=== PATIENT | male | born 1955 | race Caucasian/White ===

== ENCOUNTER 2017-12-12 05:39 | Observation (INO) | payer MEDICARE, SELFPAY ==
[2017-12-12] VITALS (16 sets, daily range): BP systolic 129–204; BP diastolic 70–91; PULSE 52–62; RESP 14–18; TEMP 36.1–36.9; O2SAT 94–98; BMI 34.1; BMI 33.4
--- NOTE | 2017-12-12 05:50 | RAD_ITS ---
STUDY: X-RAY CHEST REASON FOR EXAM: Male, 61 years old. Chest pain TECHNIQUE: Single AP portable view of the chest. COMPARISON: 08/28/2015. 07/27/2015. FINDINGS: There are superimposed monitor leads. Stable elevation right hemidiaphragm. The lungs are clear and expanded. There is no demonstrated pleural abnormality. Normal size heart. Normal mediastinum and junior. Normal visualized pulmonary arteries. Normal visualized aortic arch and descending thoracic aorta. Normal visualized thoracic spine. Normal visualized ribs, clavicles, and shoulders. There is no demonstrated abnormality of the visualized soft tissue structures of the upper abdomen. RAD/Chest 1 View (Portable) IMPRESSION: No acute cardiopulmonary disease. No significant interval change. Electronically Signed: Lynnette Dunlap MD at 6:27 EDT , Service support ,
[2017-12-12] MEDS: Aspirin 81 MG TAB.CHEW 324 MG PO (05:58)
[2017-12-12 06:04] LABS: Absolute Lymphocyte Count 2.65 X10^3/ul (0.83-4.51); Basophil# 0.04 X10^3/uL; Basophil% 0.5 % (0-1); Eosinophil# 0.25 X10^3/uL; Eosinophils% 3.2 % (0-5); Hematocrit 41.8 % (40-54); Hemoglobin 14.6 g/dl (13.0-16.5); Lymphocyte # 2.65 X10^3/ul (4.0); Lymphocyte % 33.8 % (19-41); Mean Corp Hgb Conc 34.9 g/gl (32-36); Mean Corpuscular Hgb 33.1 pg (27.0-32.0); Mean Corpuscular Volume 94.8 fL (80-94); Mean Platelet Vol. 10.2 fl (6.2-12.0); Monocyte# 0.87 X10^3/uL; Monocyte% 11.1 % (0-10); Neutrophil # 4.02 X10^3/uL (2.7-7.7); Neutrophil % 51.1 % (47-70); POSITIVE COUNT NO; POSITIVE DIFFERENTIAL NO; POSITIVE MORPHOLOGY NO; Platelet Count 230 K/mm3 (150-450); RBC Distribution Width CV 13.1 % (11.6-14.6); RBC Distribution Width SD 45.5 fl (35.1-43.9); Red Blood Count 4.41 M/mm3 (4.6-6.2); White Blood Count 7.9 K/mm3 (4.4-11.0)
[2017-12-12 06:12] LABS: BUN 12 mg/dL (7-18); Creatinine, Serum 0.82 mg/dL (0.70-1.30); Glucose 120 mg/dL (74-106)
--- NOTE | 2017-12-12 06:12 | ED.VISSUMM ---
- ER Visit Summary Date of Service: 12/12/17 Chief Complaint: Chest pain History of Present Illness: The patient is a 61 M with chest pain for about 5 hours it is now almost gone. It was described as pressure, no radiation. No diaphoresis, no nausea or vomiting. He does have a significant history of hypertension hypercholesterolemia diabetes and smoking. No PE risk factors. Physical Examination: Not appear in acute distress. Moist mucous membranes, no obvious facial deformity No C-spine tenderness supple neck. Regular rate and rhythm without any obvious murmurs Clear lungs bilaterally speaking in full sentences without any obvious respiratory distress Abdomen soft and nontender no guarding or rebound Moves all extremities without any difficulty or pain. No edema Skin does not show any obvious rashes or lesions, no trauma. Alert oriented ?3 with no gross focal deficit Emergency Department Course and Treatment: Patient has nonspecific EKG changes, he has a heart score of 5, he will be admitted to the hospital for further cardiac evaluation. Admit to the hospital in stable condition Impression: Chest pain This note was generated with [employer] dictation software. It may contain incorrect words, spelling, and punctuation that were not noted in review of the chart prior to signing ED Disposition - Plan for ED Patient: Chief Complaint: Chest Pain Referrals: Marin Geiger [Primary Care Provider] -
[2017-12-12 06:13] LABS: Anion Gap 9 (5-15); BUN/Creat Ratio 14.7 RATIO (10-20); Calcium,Total 9.5 mg/dL (8.5-10.1); Chloride 104 mmol/L (98-107); EST Glomerular Filtration Rate 102 mL/min (>60); Est Glom Filt Rate - Afr Amer 123 mL/min (>60); Estimated Creatinine Clearance 97.68 ml/min; Potassium 4.4 mmol/L (3.5-5.1); Sodium Level 140 mmol/L (136-145)
--- NOTE | 2017-12-12 07:05 | NURSING ---
DR ARLETTE PLATA
--- NOTE | 2017-12-12 07:24 | PCM.HP.STD ---
Problem List (1) Chest pain Status: Acute History of Present Illness Date of Admission: 12/12/17 Chief Complaint: chest pain The patient is a 61 year old M who awoke with left-sided chest pain. Patient checked his blood pressure and was noted to be Systolic in the 200s and was concerned about being his heart and presented to the emergency room. Patient has never had chest pain like this before. Patient received some nitroglycerin in the emergency room which resolved his chest pain. His chest pain did not radiate nor did he have any other constitutional symptoms.[] Past Medical History Past Medical History (Chronic Problems): Chronic Problems (Last Updated 12/12/17 @ 07:28 by Jaspreet Snow DO) Atrial fibrillation (Chronic) Hypertension (Chronic) Type II diabetes mellitus (Chronic) Rheumatoid arthritis (Chronic) Atrial flutter (Chronic) Hyperlipidemia (Chronic) Medical History: Medical History (Last Updated 12/12/17 @ 07:28 by Jaspreet Snow DO) CVA (cerebral vascular accident) I63.9 DM2 (diabetes mellitus, type 2) E11.9 Hyperlipidemia E78.5 Paroxysmal A-fib I48.0 Rheumatoid arthritis M06.9 HTN (hypertension) I10 Allergies No Known Allergies Allergy (Verified 07/27/15 08:31) Home Medications: Ambulatory Orders Medication Instructions Recorded Glimepiride [Amaryl] 4 mg PO BID 07/27/15 Hydrocodone Bitart/Apap 5-325 1 tablet PO Q8H PRN PRN 07/27/15 [[place] 5/325] Metformin HCl [Glucophage] 500 mg PO BIDCM 07/27/15 Apixaban [Eliquis] 5 mg PO BID #60 tablet 07/28/15 Atorvastatin Calcium [Lipitor] 40 mg PO QHS #30 tablet 07/28/15 Metoprolol Tartrate [Lopressor 100 mg PO BID #60 tablet 07/28/15 (beta mingo)] Aspirin E.C. [Ecotrin] 81 mg PO DAILY@0800 tablet 08/30/15 Flecainide [Tambocor] 100 mg PO BID #60 tablet 08/30/15 Losartan Potassium [Cozaar] 100 mg PO DAILY 12/12/17 Surgical History: noncontributory Psychiatric History: No pertinent psych hx Smoking Status: Former smoker Alcohol: Occasional Drugs: None - *Family History Maternal History Items: No pertinent history Paternal History Items: Heart Disease Review of Systems Constitutional: Denies: Chills, Fever, Weight Change Eyes: Denies: Blurred vision, Double vision HEENT: Denies: Head Aches, Sinus Congestion, Sinus Drainage Cardiovascular: Reports: Chest Pain. Denies: Edema Respiratory: Denies: Cough, Shortness of breath at rest, Sputum production Gastrointestinal: Denies: Abdominal Pain, Nausea, Vomiting Genitourinary: Denies: Dysuria Musculoskeletal: Denies: Joint Pain, Joint Tenderness Skin: Denies: Rash, Wounds Neurological: Denies: Numbness, Tingling, Focal weakness Psychiatric: Denies: Anxiety, Depression Hematologic/ Lymphatic: Denies: Easy Bruising, Easy Bleeding, Hx of blood clot Comment: All review of systems are negative except as mentioned in the history of present illness and the other review of systems. VTE Information - Inpt Only VTE Present on Admission: No VTE Mechan Device Prophylaxis: None VTE Pharm Prophylaxis ordered?: Yes Patient Problems: Active and Suspected Problems (Last Updated 12/12/17 @ 07:28 by Jaspreet Snow DO) Chest pain (Acute) - Physical Exam General: Alert, Cooperative, No apparent distress HEENT: Atraumatic, Normocephalic Neck: No Nodes, Thyroid Normal Size and Texture Lungs: Clear to auscultation, Normal air movement, No rhonchi, No wheeze Cardiovascular: Regular rate, Regular Rhythm, Normal S1, Normal S2, No murmurs Abdomen: Bowel Sounds Present, Soft, Non Tender, Non-Distended, No Hepato-splenomegaly Extremities: No edema, No Calf Tenderness Skin: No rashes, No breakdown Musculoskeletal: No Tenderness to Palpation of Joints or Extremities, No Muscle Wasting Psych/Mental Status: Normal Affect, Appropriate Vital Signs Temp Pulse Resp BP Pulse Ox 36.9 C 56 L 16 129/75 H 96 12/12/17 05:40 12/12/17 07:07 12/12/17 07:07 12/12/17 07:07 12/12/17 07:07 Oxygen Flow Rate (L/min) 2 Oxygen Delivery Method Room Air Weight: 108 kg Body Mass Index (BMI) 34.1 Finger Stick Blood Glucose 278 Laboratory Tests Past 24 Hrs 12/12/17 12/12/17 05:44 05:44 WBC 7.9 RBC 4.41 L Hgb 14.6 Hct 41.8 MCV 94.8 H MCH 33.1 H MCHC 34.9 RDW 13.1 RDW Differential 45.5 H Plt Count 230 MPV 10.2 Immature Gran % (Auto) 0.300 Neut % (Auto) 51.1 Lymph % (Auto) 33.8 [place] % (Auto) 11.1 H Eos % (Auto) 3.2 Baso % (Auto) 0.5 Absolute Neuts (auto) 4.0 Absolute Lymphs (auto) 2.65 Total Counted Not Reportable Sodium 140 Potassium 4.4 Chloride 104 Carbon Dioxide 27.0 Anion Gap 9 BUN 12 Creatinine 0.82 Estim Creat Clear Calc 97.68 Est GFR (MDRD) Af Amer 123 Est GFR (MDRD) Non-Af 102 BUN/Creatinine Ratio 14.7 Glucose 120 H Calcium 9.5 Troponin I < 0.015 EKG reviewed and are normal sinus rhythm. Inferior Q waves unchanged from 2016. Assessment/Plan All Active Problems (Last Updated 12/12/17 @ 07:28 by Jaspreet Snow DO) Acute CVA (cerebrovascular accident) (Acute) Encounter for monitoring anti-arrhythmic therapy (Acute) Chest pain (Acute) CVA (cerebral vascular accident) (Resolved) 1. Chest pain Atypical Heart score of 5, AQUILINO score of 2 Plan is for a stress test Patient already on aspirin as well as Eliquis 2. Paroxysmal atrial fibrillation Continue with metoprolol and Eliquis 3. Diabetes mellitus type 2 Continue with metformin 4. DVT prophylaxis: Patient is anticoagulated Code Visit OBSV E&M: 62446 Initial observation care L2
--- NOTE | 2017-12-12 07:28 | HP.PCM_ITS ---
Problem List (1) Chest pain Status: Acute History of Present Illness Date of Admission: 12/12/17 Chief Complaint: chest pain The patient is a 61 year old M who awoke with left-sided chest pain. Patient checked his blood pressure and was noted to be Systolic in the 200s and was concerned about being his heart and presented to the emergency room. Patient has never had chest pain like this before. Patient received some nitroglycerin in the emergency room which resolved his chest pain. His chest pain did not radiate nor did he have any other constitutional symptoms.[] Past Medical History Past Medical History (Chronic Problems): Chronic Problems (Last Updated 12/12/17 @ 07:28 by Jaspreet Snow DO) Atrial fibrillation (Chronic) Hypertension (Chronic) Type II diabetes mellitus (Chronic) Rheumatoid arthritis (Chronic) Atrial flutter (Chronic) Hyperlipidemia (Chronic) Medical History: Medical History (Last Updated 12/12/17 @ 07:28 by Jaspreet Snow DO) CVA (cerebral vascular accident) I63.9 DM2 (diabetes mellitus, type 2) E11.9 Hyperlipidemia E78.5 Paroxysmal A-fib I48.0 Rheumatoid arthritis M06.9 HTN (hypertension) I10 Allergies No Known Allergies Allergy (Verified 07/27/15 08:31) Home Medications: Ambulatory Orders Medication Instructions Recorded Glimepiride [Amaryl] 4 mg PO BID 07/27/15 Hydrocodone Bitart/Apap 5-325 1 tablet PO Q8H PRN PRN 07/27/15 [[place] 5/325] Metformin HCl [Glucophage] 500 mg PO BIDCM 07/27/15 Apixaban [Eliquis] 5 mg PO BID #60 tablet 07/28/15 Atorvastatin Calcium [Lipitor] 40 mg PO QHS #30 tablet 07/28/15 Metoprolol Tartrate [Lopressor 100 mg PO BID #60 tablet 07/28/15 (beta mingo)] Aspirin E.C. [Ecotrin] 81 mg PO DAILY@0800 tablet 08/30/15 Flecainide [Tambocor] 100 mg PO BID #60 tablet 08/30/15 Losartan Potassium [Cozaar] 100 mg PO DAILY 12/12/17 Surgical History: noncontributory Psychiatric History: No pertinent psych hx Smoking Status: Former smoker Alcohol: Occasional Drugs: None - *Family History Maternal History Items: No pertinent history Paternal History Items: Heart Disease Review of Systems Constitutional: Denies: Chills, Fever, Weight Change Eyes: Denies: Blurred vision, Double vision HEENT: Denies: Head Aches, Sinus Congestion, Sinus Drainage Cardiovascular: Reports: Chest Pain. Denies: Edema Respiratory: Denies: Cough, Shortness of breath at rest, Sputum production Gastrointestinal: Denies: Abdominal Pain, Nausea, Vomiting Genitourinary: Denies: Dysuria Musculoskeletal: Denies: Joint Pain, Joint Tenderness Skin: Denies: Rash, Wounds Neurological: Denies: Numbness, Tingling, Focal weakness Psychiatric: Denies: Anxiety, Depression Hematologic/ Lymphatic: Denies: Easy Bruising, Easy Bleeding, Hx of blood clot Comment: All review of systems are negative except as mentioned in the history of present illness and the other review of systems. VTE Information - Inpt Only VTE Present on Admission: No VTE Mechan Device Prophylaxis: None VTE Pharm Prophylaxis ordered?: Yes Patient Problems: Active and Suspected Problems (Last Updated 12/12/17 @ 07:28 by Jaspreet Snow DO ) Chest pain (Acute) - Physical Exam General: Alert, Cooperative, No apparent distress HEENT: Atraumatic, Normocephalic Neck: No Nodes, Thyroid Normal Size and Texture Lungs: Clear to auscultation, Normal air movement, No rhonchi, No wheeze Cardiovascular: Regular rate, Regular Rhythm, Normal S1, Normal S2, No murmurs Abdomen: Bowel Sounds Present, Soft, Non Tender, Non-Distended, No Hepato- splenomegaly Extremities: No edema, No Calf Tenderness Skin: No rashes, No breakdown Musculoskeletal: No Tenderness to Palpation of Joints or Extremities, No Muscle Wasting Psych/Mental Status: Normal Affect, Appropriate Vital Signs Temp Pulse Resp BP Pulse Ox 36.9 C 56 L 16 129/75 H 96 12/12/17 05:40 12/12/17 07:07 12/12/17 07:07 12/12/17 07:07 12/12/17 07:07 Oxygen Flow Rate (L/min) 2 Oxygen Delivery Method Room Air Weight: 108 kg Body Mass Index (BMI) 34.1 Finger Stick Blood Glucose 278 Laboratory Tests Past 24 Hrs 12/12/17 12/12/17 05:44 05:44 WBC 7.9 RBC 4.41 L Hgb 14.6 Hct 41.8 MCV 94.8 H MCH 33.1 H MCHC 34.9 RDW 13.1 RDW Differential 45.5 H Plt Count 230 MPV 10.2 Immature Gran % (Auto) 0.300 Neut % (Auto) 51.1 Lymph % (Auto) 33.8 [place] % (Auto) 11.1 H Eos % (Auto) 3.2 Baso % (Auto) 0.5 Absolute Neuts (auto) 4.0 Absolute Lymphs (auto) 2.65 Total Counted Not Reportable Sodium 140 Potassium 4.4 Chloride 104 Carbon Dioxide 27.0 Anion Gap 9 BUN 12 Creatinine 0.82 Estim Creat Clear Calc 97.68 Est GFR (MDRD) Af Amer 123 Est GFR (MDRD) Non-Af 102 BUN/Creatinine Ratio 14.7 Glucose 120 H Calcium 9.5 Troponin I < 0.015 EKG reviewed and are normal sinus rhythm. Inferior Q waves unchanged from 2016. Assessment/Plan All Active Problems (Last Updated 12/12/17 @ 07:28 by Jaspreet Snow DO) Acute CVA (cerebrovascular accident) (Acute) Encounter for monitoring anti-arrhythmic therapy (Acute) Chest pain (Acute) CVA (cerebral vascular accident) (Resolved) 1. Chest pain * Atypical * Heart score of 5, AQUILINO score of 2 * Plan is for a stress test * Patient already on aspirin as well as Eliquis 2. Paroxysmal atrial fibrillation * Continue with metoprolol and Eliquis 3. Diabetes mellitus type 2 * Continue with metformin 4. DVT prophylaxis: Patient is anticoagulated Code Visit OBSV E&M: 51153 Initial observation care L2
--- NOTE | 2017-12-12 07:48 | NM_ITS ---
CLINICAL: 61-year-old diabetic, hypertensive male with current complaint of chest discomfort. REST-REGADENOSON 99m Tc SESTAMIBI STRESS MYOCARDIAL PERFUSION SPECT COMPARISON: None available FINDINGS: Following the intravenous administration of 13.8 mCi of 99m Tc sestamibi, the resting attenuation corrected myocardial perfusion acquisitions demonstrate relatively uniform perfusion noted throughout all left ventricular myocardial segments. The left ventricular chamber is prominent in size. The patient was administered intravenous regadenoson (0.4 mgm). Following the intravenous administration of 41.0 mCi of 99m Tc sestamibi, the post regadenoson attenuation corrected images reveal mild decreased perfusion in the apical, proximal anterolateral and inferolateral segments. The total visual summed stress score is < 8. The left ventricular chamber remains prominent in size, unchanged compared to the resting acquisitions. The post stress resting left ventricular ejection fraction is calculated to be 58.0 % by gated SPECT technique. Wall motion and end systolic thickening are considered normal. NM/Nuclear Stress Test - Chemical IMPRESSION: 1. MILDLY ABNORMAL REST-REGADENOSON STRESS 99m Tc SESTAMIBI MYOCARDIAL PERFUSION SPECT. A. Pharmacologic induced left ventricular ischemia involving the apical, proximal anterolateral and proximal inferolateral segments. B. Preservation of resting left ventricular myocardial systolic function. The left ventricular chamber is mildly dilated on the post stress acquisitions, unchanged at rest. The end-diastolic volume is elevated compared to normal controls. (David et al, J Nucl Med 37: 105P, 1996). C. In a registry of 1680 patients studied with stress MPI at the [facility] or the [facility] [place], subjects with mild to moderate cardiac perfusion defect scores and resting LVEFs > 45% demonstrated a < 1% annualized incidence of cardiac . (Sharir et al, Circulation 100: 1035, 1999). Electronically Signed: Mati Yusuf DO at 13:07 EDT Tel , Service support ,
[2017-12-12 08:20] LABS: Bedside Glucose 108 mg/dL (70-110)
[2017-12-12] MEDS: Glimepiride 4 MG Tablet PO (16:19)
[2017-12-12] MEDS: Flecainide 100 MG Tablet PO (21:18)
[2017-12-12] MEDS: Atorvastatin Calcium 40 MG Tablet PO (21:18)
[2017-12-12] MEDS: Metoprolol Tartrate 100 MG Tablet PO (21:18)
[2017-12-12] MEDS: APIXABAN 5 MG TABLET PO (21:18)
[2017-12-13] VITALS (12 sets, daily range): BP systolic 118–164; BP diastolic 55–68; PULSE 48–63; RESP 16–20; TEMP 36.2–36.8; O2SAT 96–99
[2017-12-13 05:46] LABS: Cholesterol 87 mg/dL (200); High Density Lipoprotein 34 mg/dL; Triglycerides 123 mg/dL; Very Low Density Lipoprotein 25 mg/dL (5-40)
[2017-12-13 06:55] LABS: Bedside Glucose 123 mg/dL (70-110)
[2017-12-13] MEDS: Glimepiride 4 MG Tablet PO ×2 (09:15→17:08)
[2017-12-13] MEDS: Aspirin E.C. 81 MG Tablet PO (09:15)
[2017-12-13] MEDS: Losartan Potassium 100 MG Tablet PO (09:16)
[2017-12-13] MEDS: Metoprolol Tartrate 100 MG Tablet PO ×2 (09:16→21:14)
[2017-12-13] MEDS: APIXABAN 5 MG TABLET PO (09:16)
[2017-12-13] MEDS: Flecainide 100 MG Tablet PO ×2 (09:16→21:14)
--- NOTE | 2017-12-13 11:39 | PCM.CONS.C ---
Reason for Consult Date of Consultation: 12/13/17 History of Present Illness: The patient is a 61 year old M with past medical history significant for hypertension, diabetes mellitus, paroxysmal atrial fibrillation and rheumatoid arthritis. According to the patient, he woke up yesterday with left-sided chest discomfort. He perceived his at as throbbing. Not sure if it was continuous or intermittent. The discomfort was resolved and the patient was given nitroglycerin in the emergency room. He has been asymptomatic since then. Per patient, for the past few months, he has noted to have some chest tightness with moderate exertion. Also becomes short of breath with exertion. No diaphoresis. No palpitations. No orthopnea or PND. Patient has had a pharmacological stress test yesterday. It showed anterior and apical mild ischemia. There is suggestion of left ventricular transient dilatation post stress as well [] Past Medical History Allergies/Adverse Reactions: Allergies No Known Allergies Allergy (Verified 07/27/15 08:31) Home Medications: Ambulatory Orders Medication Instructions Recorded Glimepiride [Amaryl] 4 mg PO BID 07/27/15 Hydrocodone Bitart/Apap 5-325 1 tablet PO Q8H PRN PRN 07/27/15 [[place] 5/325] Metformin HCl [Glucophage] 1,000 mg PO BIDCM 07/27/15 Apixaban [Eliquis] 5 mg PO BID #60 tablet 07/28/15 Atorvastatin Calcium [Lipitor] 40 mg PO QHS #30 tablet 07/28/15 Metoprolol Tartrate [Lopressor 100 mg PO BID #60 tablet 07/28/15 (beta mingo)] Aspirin E.C. [Ecotrin] 81 mg PO DAILY@0800 tablet 08/30/15 Flecainide [Tambocor] 100 mg PO BID #60 tablet 08/30/15 Losartan Potassium [Cozaar] 100 mg PO DAILY 12/12/17 Past Medical History (Chronic Problems): Chronic Problems (Last Updated 12/12/17 @ 07:28 by Jaspreet Snow DO) Atrial fibrillation (Chronic) Hypertension (Chronic) Type II diabetes mellitus (Chronic) Rheumatoid arthritis (Chronic) Atrial flutter (Chronic) Hyperlipidemia (Chronic) Surgical History: noncontributory Psychiatric History: No pertinent psych hx - *Family History Maternal History Items: No pertinent history Paternal History Items: Heart Disease Smoking Status: Former smoker Alcohol: Occasional Drugs: None Review of Systems - Review of Systems General: Denies: Fever, Fatigue, Chills, Weight Loss HEENT: Denies: Head Aches Cardiovascular: Reports: Chest Discomfort with Exertion, Shortness of Breath with Exertion. Denies: Orthopnea, PND, Peripheral Edema, Palpitations, Near Syncope, Syncope Respiratory: Denies: Cough, Hemoptysis Gastrointestinal: Denies: Abdominal Discomfort, Jaundice, Emesis, Hematemesis, Melena Muscoloskeletal: Reports: Myalgias, - - History of rheumatoid arthritis Neurological: Reports: History of CVA Endocrine: Denies: Heat Intolerance, Cold Intolerance Hematologic/ Lymphatic: Reports: Easy Brusing - On Eliquis for paroxysmal atrial fibrillation Subjectve: Comfortable. No apparent distress Objective: Vital Signs Temp Pulse Resp BP Pulse Ox 97.9 F 61 16 163/61 H 98 12/13/17 09:08 12/13/17 11:09 12/13/17 09:08 12/13/17 09:16 12/13/17 09:08 Oxygen Delivery Method Room Air Weight: 105.96 kg Body Mass Index (BMI) 33.4 Intake and Output for Last 24 Hours 12/11/17 12/12/17 12/13/17 23:59 23:59 23:59 Intake Total 360 / 360 240 / 240 Balance 360 / 360 240 / 240 General: Healthy Appearing, Awake, Alert, Oriented x 3, No Acute Distress HEENT: Atraumatic, Normocephalic Oral: Moist Mucosa Neck: Supple, No JVD Lungs: Clear to auscultation Cardiovascular: Regular Rhythm, Normal S1, Normal S2 Abdomen: Bowel Sounds Present, Soft Extremities: No edema Neurological: No Focal Motor or Sensory Deficit Psych/Mental Status: Appropriate 12/12/17 13:30: Troponin I < 0.015 12/13/17 05:05: Triglycerides 123, Cholesterol 87, LDL Cholesterol 28, VLDL Cholesterol 25, HDL Cholesterol 34 L Rhythm: Normal sinus rhythm EKG: Normal sinus rhythm. Possible old inferior IA ECHO: Stress Test: Mild ischemia in the anterior wall and apex Cardiac Cath: PCI: CT Surgery: Holter monitor: EPS: PPM: CXR: Chest CT Scan: Assessment/Plan 1. Angina pectoris. Abnormal stress test. Positive risk factors for coronary artery disease. Detailed discussion was held with the patient regarding further course of action. Medical management versus invasive workup and treatment options were discussed. Risks benefits explained. He understands and wishes to proceed with cardiac catheterization with possible revascularization if indicated. We will plan on proceeding tomorrow 2. Hypertension. Uncontrolled. Start on thiazide diuretic 3. History of paroxysmal atrial fibrillation. Presently normal sinus rhythm on Tambocor. On Eliquis. Will hold for planned coronary angiography 4. Diabetes mellitus 5. History of rheumatoid arthritis 6. Dyslipidemia. On atorvastatin. Manage as per internal medicine 7. History of CVA
[2017-12-13] MEDS: hydroCHLOROthiazide 25 MG Tablet PO (12:44)
[2017-12-13] MEDS: Isosorbide Mononitrate 30 MG Tablet PO (12:44)
--- NOTE | 2017-12-13 13:11 | PCM.PN.HOSP ---
Patient Problems: Active and Suspected Problems (Last Updated 12/12/17 @ 07:28 by Jaspreet Snow DO) Chest pain (Acute) Subjective: No recurrence of chest pain. Vitals/I&O's: Vital Signs Temp Pulse Resp BP Pulse Ox 36.6 C 61 16 163/61 H 98 12/13/17 09:08 12/13/17 11:09 12/13/17 09:08 12/13/17 09:16 12/13/17 09:08 Oxygen Delivery Method Room Air Weight: 105.96 kg Body Mass Index (BMI) 33.4 Intake and Output for Last 24 Hours 12/11/17 12/12/17 12/13/17 23:59 23:59 23:59 Intake Total 360 / 360 840 / 840 Balance 360 / 360 840 / 840 General: Alert, Cooperative, No apparent distress HEENT: Atraumatic, Normocephalic Oral: Moist Mucosa, No Gingival or Mucosal Lesions/ Ulcerations Neck: No Nodes, Thyroid Normal Size and Texture Lungs: Clear to auscultation, Normal air movement, No rhonchi, No wheeze Cardiovascular: Regular rate, Regular Rhythm, Normal S1, Normal S2, No murmurs Abdomen: Obese Extremities: No edema Skin: No rashes, No breakdown Psych/Mental Status: Normal Affect, Appropriate Laboratory Results 12/12/17 13:30: Troponin I < 0.015 12/13/17 05:05: Triglycerides 123, Cholesterol 87, LDL Cholesterol 28, VLDL Cholesterol 25, HDL Cholesterol 34 L 12/13/17 06:49: POC Glucose 123 H Current Medications Hydrocodone Bitart/Acetaminophen ([place] 5mg-325mg) 1 tablet PO Q8H PRN PRN PRN Reason: PAIN Aspirin (Ecotrin) 81 mg PO DAILY@0800 [facility] Last Admin: 12/13/17 09:15 Dose: 81 mg Atorvastatin Calcium (Lipitor) 40 mg PO QHS [facility] Last Admin: 12/12/17 21:18 Dose: 40 mg Flecainide Acetate (Tambocor) 100 mg PO BID [facility] Last Admin: 12/13/17 09:16 Dose: 100 mg [facility] Last Admin: 12/13/17 09:15 Dose: 4 mg Hydrochlorothiazide (Hctz) 25 mg PO DAILY [facility] Last Admin: 12/13/17 12:44 Dose: 25 mg Sodium Chloride () 1,000 mls @ 15 mls/hr IV .Q48H TERESA PRN Reason: KVO Isosorbide Mononitrate (Imdur) 30 mg PO DAILY [facility] Last Admin: 12/13/17 12:44 Dose: 30 mg Losartan Potassium (Cozaar) 100 mg PO DAILY [facility] Last Admin: 12/13/17 09:16 Dose: 100 mg Magnesium Hydroxide (Milk Of Magnesia) 30 ml PO DAILY PRN PRN Reason: Constipation Metoprolol Tartrate (Lopressor (Beta [place]ie)) 100 mg PO BID [facility] Last Admin: 12/13/17 09:16 Dose: 100 mg Nitroglycerin (Nitrostat) 0.4 mg SUBLINGUAL Q5M PRN PRN Reason: CHEST PAIN Sodium Chloride () 5 - 30 ml IV UD PRN PRN Reason: SALINE FLUSH Medical Necessity - Tobacco Use Smoking Status: Former smoker Assessment/Plan All Active Problems (Last Updated 12/12/17 @ 07:28 by Jaspreet Snow DO) Acute CVA (cerebrovascular accident) (Acute) Encounter for monitoring anti-arrhythmic therapy (Acute) Chest pain (Acute) CVA (cerebral vascular accident) (Resolved) 1. Chest pain Atypical Heart score of 5, AQUILINO score of 2 stress test positive started on atorvastatin seen by cardiology, plan for [facility] on 12/14 2. Paroxysmal atrial fibrillation Continue with metoprolol and Eliquis 3. Diabetes mellitus type 2 hold metformin in light of impending heart cath. fair control 4. DVT prophylaxis: Patient is anticoagulated Code Visit OBSV E&M: 45761 Subsequent observation care L2
--- NOTE | 2017-12-13 13:14 | PN_ITS ---
Patient Problems: Active and Suspected Problems (Last Updated 12/12/17 @ 07:28 by Jaspreet Snow DO ) Chest pain (Acute) Subjective: No recurrence of chest pain. Vitals/I&O's: Vital Signs Temp Pulse Resp BP Pulse Ox 36.6 C 61 16 163/61 H 98 12/13/17 09:08 12/13/17 11:09 12/13/17 09:08 12/13/17 09:16 12/13/17 09:08 Oxygen Delivery Method Room Air Weight: 105.96 kg Body Mass Index (BMI) 33.4 Intake and Output for Last 24 Hours 12/11/17 12/12/17 12/13/17 23:59 23:59 23:59 Intake Total 360 / 360 840 / 840 Balance 360 / 360 840 / 840 General: Alert, Cooperative, No apparent distress HEENT: Atraumatic, Normocephalic Oral: Moist Mucosa, No Gingival or Mucosal Lesions/ Ulcerations Neck: No Nodes, Thyroid Normal Size and Texture Lungs: Clear to auscultation, Normal air movement, No rhonchi, No wheeze Cardiovascular: Regular rate, Regular Rhythm, Normal S1, Normal S2, No murmurs Abdomen: Obese Extremities: No edema Skin: No rashes, No breakdown Psych/Mental Status: Normal Affect, Appropriate Laboratory Results 12/12/17 13:30: Troponin I < 0.015 12/13/17 05:05: Triglycerides 123, Cholesterol 87, LDL Cholesterol 28, VLDL Cholesterol 25, HDL Cholesterol 34 L 12/13/17 06:49: POC Glucose 123 H Current Medications Hydrocodone Bitart/Acetaminophen ([place] 5mg-325mg) 1 tablet PO Q8H PRN PRN PRN Reason: PAIN Aspirin (Ecotrin) 81 mg PO DAILY@0800 [facility] Last Admin: 12/13/17 09:15 Dose: 81 mg Atorvastatin Calcium (Lipitor) 40 mg PO QHS [facility] Last Admin: 12/12/17 21:18 Dose: 40 mg Flecainide Acetate (Tambocor) 100 mg PO BID [facility] Last Admin: 12/13/17 09:16 Dose: 100 mg [facility] ([facility]l) [facility] Last Admin: 12/13/17 09:15 Dose: 4 mg Hydrochlorothiazide (Hctz) 25 mg PO DAILY [facility] Last Admin: 12/13/17 12:44 Dose: 25 mg Sodium Chloride () 1,000 mls @ 15 mls/hr IV .Q48H TERESA PRN Reason: KVO Isosorbide Mononitrate (Imdur) 30 mg PO DAILY [facility] Last Admin: 12/13/17 12:44 Dose: 30 mg Losartan Potassium (Cozaar) 100 mg PO DAILY [facility] Last Admin: 12/13/17 09:16 Dose: 100 mg Magnesium Hydroxide (Milk Of Magnesia) 30 ml PO DAILY PRN PRN Reason: Constipation Metoprolol Tartrate (Lopressor (Beta Chuckie)) 100 mg PO BID [facility] Last Admin: 12/13/17 09:16 Dose: 100 mg Nitroglycerin (Nitrostat) 0.4 mg SUBLINGUAL Q5M PRN PRN Reason: CHEST PAIN Sodium Chloride () 5 - 30 ml IV UD PRN PRN Reason: SALINE FLUSH Medical Necessity - Tobacco Use Smoking Status: Former smoker Assessment/Plan All Active Problems (Last Updated 12/12/17 @ 07:28 by Jaspreet Snow DO) Acute CVA (cerebrovascular accident) (Acute) Encounter for monitoring anti-arrhythmic therapy (Acute) Chest pain (Acute) CVA (cerebral vascular accident) (Resolved) 1. Chest pain * Atypical * Heart score of 5, AQUILINO score of 2 * stress test positive * started on atorvastatin * seen by cardiology, plan for [facility] on 12/14 2. Paroxysmal atrial fibrillation * Continue with metoprolol and Eliquis 3. Diabetes mellitus type 2 * hold metformin in light of impending heart cath. * fair control 4. DVT prophylaxis: Patient is anticoagulated Code Visit OBSV E&M: 33975 Subsequent observation care L2
[2017-12-13] MEDS: 0.9% NaCl Peripheral Flush Adult/Peds IV (14:34)
[2017-12-13] MEDS: HYDROcodone Bitartrate/Apap 5/325 Tablet PO (20:31)
[2017-12-13] MEDS: Atorvastatin Calcium 40 MG Tablet PO (21:14)
--- NOTE | 2017-12-13 21:55 | NURSING ---
the patient does not want to watch the ipad heart cath video.
[2017-12-14] VITALS (17 sets, daily range): BP systolic 106–141; BP diastolic 42–78; PULSE 45–59; RESP 14–18; TEMP 36.1–37.1; O2SAT 93–99
[2017-12-14 05:38] LABS: Anion Gap 12 (5-15); BUN 15 mg/dL (7-18); BUN/Creat Ratio 17.1 RATIO (10-20); Chloride 102 mmol/L (98-107); Creatinine, Serum 0.88 mg/dL (0.70-1.30); EST Glomerular Filtration Rate 94 mL/min (>60); Est Glom Filt Rate - Afr Amer 113 mL/min (>60); Estimated Creatinine Clearance 91.02 ml/min; Glucose 85 mg/dL (74-106); Potassium 3.7 mmol/L (3.5-5.1); Sodium Level 139 mmol/L (136-145)
[2017-12-14 05:55] LABS: International Normalized Ratio 1.2
[2017-12-14 05:56] LABS: Partial Thromboplast Time 32.7 Seconds (24.1-36.2)
[2017-12-14] MEDS: Aspirin E.C. 81 MG Tablet PO (06:50)
[2017-12-14] MEDS: Flecainide 100 MG Tablet PO (06:51)
[2017-12-14] MEDS: Losartan Potassium 100 MG Tablet PO (06:51)
[2017-12-14] MEDS: Isosorbide Mononitrate 30 MG Tablet PO (06:52)
[2017-12-14] MEDS: 0.9% Normal Saline 1,000 ML 15 ML IV (06:53)
[2017-12-14 07:00] LABS: Hematocrit 37.8 % (40-54); Hemoglobin 13.7 g/dl (13.0-16.5); Mean Corp Hgb Conc 36.2 g/gl (32-36); Mean Corpuscular Hgb 33.8 pg (27.0-32.0); Mean Corpuscular Volume 93.3 fL (80-94); Mean Platelet Vol. 10.3 fl (6.2-12.0); Platelet Count 237 K/mm3 (150-450); RBC Distribution Width CV 12.7 % (11.6-14.6); RBC Distribution Width SD 42.3 fl (35.1-43.9); Red Blood Count 4.05 M/mm3 (4.6-6.2); Scan Indicated on CBC? Y/N NO; White Blood Count 8.6 K/mm3 (4.4-11.0)
[2017-12-14 07:11] LABS: Bedside Glucose 106 mg/dL (70-110)
--- NOTE | 2017-12-14 08:23 | STRESSREP ---
Stress Test Report Pharmacologic myocardial perfusion stress test. 61-year-old man with a history of chest pain. Stress protocol. Resting EKG demonstrates sinus bradycardia with a rate of 55 bpm normal intervals and noted resting blood pressure is 178/80 mmHg. 0.4 mg of regadenoson was infused per usual protocol followed by Intravenous saline flush injection continuous EKG monitoring was performed. Patient maintained sinus rhythm throughout the recording. The maximum heart rate attained was 68 bpm which was 42% of maximum predicted heart rate the maximum workload was 1 metabolic equivalent. The resting blood pressure is 178/80 with a final blood pressure 144/84 mmHg. Myocardial perfusion protocol. The myocardial perfusion protocol and portion were dictated by Dr. Yusuf of the radiology division. Conclusion: Pharmacologic stress test with no EKG changes for abnormal flow reserve. Nuclear images dictated under separate cover.
--- NOTE | 2017-12-14 09:48 | CASEMGMT ---
Insurance review for [facility] facilities if transfer is recommended. [facility], [facility], Danielle KIRK, [facility].
[2017-12-14] MEDS: hydroCHLOROthiazide 25 MG Tablet PO (09:59)
--- NOTE | 2017-12-14 11:31 | NURSING ---
report given to RAVEN Ramos in chemical laboratory chief
--- NOTE | 2017-12-14 12:37 | PCM.PN.BLA ---
Progress Note Coronary angiography performed. Please refer to cardiac catheterization report for full details. Patient is noted to have about 65% proximal LAD lesion and about 60-70% mid LAD lesion. iFR was performed. It was nonsignificant at 0.94 to the mid lesion and 0.99 through the proximal lesion. Recommend continuing medical treatment. Patient may be discharged later in the evening after hemostasis was secured and the right wrist site appears stable. Recommend resuming Eliquis from tomorrow morning. Follow-up with Dr. Berger in the office in 1 week time
[2017-12-14 12:51] LABS: ACT Activated Clotting Time 202 sec (74-137)
--- NOTE | 2017-12-14 13:10 | PCM.DC ---
- Discharge Diagnoses Current Active Problems: Current Active and Chronic Problems (Last Updated 12/12/17 @ 07:28 by Jaspreet Snow DO) Chest pain (Acute) You will use the following diet at home:: Calorie/Carbohydrate Controlled (specify 1200, 1400, etc) - 1800, Cardiac Your food should be the consistency of: Regular Your liquids should be the consistency of: Regular/Thin Discharge Activity: Return to Normal Activity Call your doctor if you observe: Fever of 101 or Higher, Shortness of breath, Chest pain Instructions: ED Chest Pain NonCardiac Allergies/Adverse Reactions: Allergies No Known Allergies Allergy (Verified 07/27/15 08:31) Medications to take at Discharge Glimepiride [Amaryl] 4 mg PO BID 07/27/15 Hydrocodone Bitart/Apap 5-325 [[place] 5/325] 1 tablet PO Q8H PRN PRN 07/27/15 Atorvastatin Calcium [Lipitor] 40 mg PO QHS #30 tablet 07/28/15 Metoprolol Tartrate [Lopressor (beta mingo)] 100 mg PO BID #60 tablet 07/28/15 Aspirin E.C. [Ecotrin] 81 mg PO DAILY@0800 tablet 08/30/15 Flecainide [Tambocor] 100 mg PO BID #60 tablet 08/30/15 Losartan Potassium [Cozaar] 100 mg PO DAILY 12/12/17 Apixaban [Eliquis] 5 mg PO BID #60 tablet 12/14/17 Hydrochlorothiazide [Hctz] 25 mg PO DAILY #30 tab 12/14/17 Isosorbide Mononitrate [Imdur] 30 mg PO DAILY #30 tab 12/14/17 Metformin HCl [Glucophage] 1,000 mg PO BIDCM #0 12/14/17 Nitroglycerin [Nitrostat] 0.4 mg SUBLINGUAL Q5M PRN #20 tab 12/14/17 Potassium Chloride [K-Dur] 10 meq PO DAILY #30 tab 12/14/17 The following prescriptions were given: Hydrochlorothiazide [Hctz] 25 mg PO DAILY #30 tab Isosorbide Mononitrate [Imdur] 30 mg PO DAILY #30 tab Nitroglycerin [Nitrostat] 0.4 mg SUBLINGUAL Q5M PRN #20 tab PRN Reason: Chest Pain Potassium Chloride [K-Dur] 10 meq PO DAILY #30 tab Orders to be completed after discharge: Basic Metabolic Profile (BMP) Location: Laboratory Primary Care Physician: Marin Geiger [Primary Care Provider] - Within 2 Weeks Test Results: Test results from this visit will be discussed in further detail at your follow-up appointment, if applicable. Please Follow Up With: Marin Wheeler MD When: 3-4 weeks Proposed Discharge Date: 12/14/17
--- NOTE | 2017-12-14 13:13 | PCM.DC.SUM ---
Discharge Date and Diagnosis - Problem List Patient Problems: Active and Suspected Problems (Last Updated 12/12/17 @ 07:28 by Jaspreet Snow DO) Hypertensive urgency (Acute) Chest pain (Acute) Date of Admission: 12/12/17 Date of Discharge: 12/14/17 - Primary Discharge Diagnosis Active and Suspected Problems (Last Updated 12/12/17 @ 07:28 by Jaspreet Snow DO) Hypertensive urgency (Acute) Chest pain (Acute) - Secondary Discharge Diagnosis Chronic Problems (Last Updated 12/12/17 @ 07:28 by Jaspreet Snow DO) Atrial fibrillation (Chronic) Hypertension (Chronic) Type II diabetes mellitus (Chronic) Rheumatoid arthritis (Chronic) Acute CVA (cerebrovascular accident) (Chronic) Atrial flutter (Chronic) Hyperlipidemia (Chronic) Hospital Course and Treatment Imaging Results: Clinical Impression(s) from Imaging Studies Chest X-Ray 12/12/17 05:50 IMPRESSION: No acute cardiopulmonary disease. No significant interval change. Electronically Signed: Lynnette Dunlap MD at 6:27 EDT , Service support , Stress Test Nuclear Medicine 12/12/17 07:48 IMPRESSION: 1. MILDLY ABNORMAL REST-REGADENOSON STRESS 99m Tc SESTAMIBI MYOCARDIAL PERFUSION SPECT. A. Pharmacologic induced left ventricular ischemia involving the apical, proximal anterolateral and proximal inferolateral segments. B. Preservation of resting left ventricular myocardial systolic function. The left ventricular chamber is mildly dilated on the post stress acquisitions, unchanged at rest. The end-diastolic volume is elevated compared to normal controls. (David et al, J Nucl Med 37: 105P, 1995). C. In a registry of [id number] patients studied with stress MPI at the [facility] or the [facility] [place], subjects with mild to moderate cardiac perfusion defect scores and resting LVEFs > 45% demonstrated a < 1% annualized incidence of cardiac . (Sharir et al, Circulation 100: 1035, 1999). Electronically Signed: Mati Yusuf DO at 13:07 EDT Tel , Service support , Operations: None Procedures: Cardiac catheterization - Patient is noted to have about 65% proximal LAD lesion and about 60-70% mid LAD lesion. iFR was performed. It was nonsignificant at 0.94 to the mid lesion and 0.99 through the proximal lesion. Recommend continuing medical treatment., Stress test Summary of Care Provided: The patient is a 61 year old M presents with chest pain. Patient underwent a stress test on the that showed pharmacologic induced left ventricular ischemia involving the apical, proximal anterior lateral and proximal inferior lateral segments. Cardiology was consulted and patient underwent a left heart catheterization today that showed 65% proximal LAD lesion and about 60-70% of mid LAD lesion. Is recommended patient to have optimal medical care. Also patient was profoundly hypertensive when he initially presented with a blood pressure of 204/88. In addition to the patient's chronic medications isosorbide as hydrochlorothiazide were added and patient has been normotensive since. Patient has no further chest pain. Patient will be discharged home once hemostasis has been achieved. Physical exam: Patient is no acute distress and afebrile. No respiratory distress. No conversational dyspnea. Patient had a right radial approach to his heart catheterization and has no cyanosis clubbing distally. Sensation is intact in his digits. [] Discharge Diet: Low fat/ Low Cholesterol, 1800 Calorie Control Diet Discharge Activity: Return to Normal Activity Call your doctor if you observe: Fever of 101 or Higher, Shortness of breath, Chest pain Home Medications: Medications to take at Discharge Glimepiride [Amaryl] 4 mg PO BID 07/27/15 Hydrocodone Bitart/Apap 5-325 [[place] 5/325] 1 tablet PO Q8H PRN PRN 07/27/15 Atorvastatin Calcium [Lipitor] 40 mg PO QHS #30 tablet 07/28/15 Metoprolol Tartrate [Lopressor (beta mingo)] 100 mg PO BID #60 tablet 07/28/15 Aspirin E.C. [Ecotrin] 81 mg PO DAILY@0800 tablet 08/30/15 Flecainide [Tambocor] 100 mg PO BID #60 tablet 08/30/15 Losartan Potassium [Cozaar] 100 mg PO DAILY 12/12/17 Apixaban [Eliquis] 5 mg PO BID #60 tablet 12/14/17 Hydrochlorothiazide [Hctz] 25 mg PO DAILY #30 tab 12/14/17 Isosorbide Mononitrate [Imdur] 30 mg PO DAILY #30 tab 12/14/17 Metformin HCl [Glucophage] 1,000 mg PO BIDCM #0 12/14/17 Nitroglycerin [Nitrostat] 0.4 mg SUBLINGUAL Q5M PRN #20 tab 12/14/17 Potassium Chloride [K-Dur] 10 meq PO DAILY #30 tab 12/14/17 Following Prescrptions Were Given to Patient: Hydrochlorothiazide [Hctz] 25 mg PO DAILY #30 tab Isosorbide Mononitrate [Imdur] 30 mg PO DAILY #30 tab Nitroglycerin [Nitrostat] 0.4 mg SUBLINGUAL Q5M PRN #20 tab PRN Reason: Chest Pain Potassium Chloride [K-Dur] 10 meq PO DAILY #30 tab Other Amb Orders: Basic Metabolic Profile (BMP) Location: Laboratory Primary Care Physician: Marin Geiger [Primary Care Provider] - Within 2 Weeks Please Follow Up With: Marin Wheeler MD When: 3-4 weeks Patient Instructions: ED Chest Pain NonCardiac Disposition: Home Minutes spent on discharge:: 32 Patient Condition:: Fair Medical Necessity - Tobacco Use Smoking Status: Former smoker Meaningful Use Info Meaningful Use Diagnoses (Choose all that apply): None applicable Code Visit OBSV E&M: 93236 Observation care discharge
[2017-12-14] MEDS: Glimepiride 4 MG Tablet PO (16:04)
== END 2017-12-14 13:12 | disposition home or self-care (01) ==
LOC: ED 07:33 → PCU 07:35
PROVIDERS: Internal Medicine Cardiovascular Disease; Emergency Provider Emergency Medicine; Family Provider Family Medicine; PCP Family Medicine
DX: R07.89 Other chest pain (principal); I16.0 Hypertensive urgency; E78.00 Pure hypercholesterolemia, unspecified; E11.9 Type 2 diabetes mellitus without complications; I10 Essential (primary) hypertension; R94.39 Abnormal result of other cardiovascular function study; M06.9 Rheumatoid arthritis, unspecified; E78.5 Hyperlipidemia, unspecified; I48.0 Paroxysmal atrial fibrillation; Z79.84 Long term (current) use of oral hypoglycemic drugs; Z79.01 Long term (current) use of anticoagulants; Z79.899 Other long term (current) drug therapy; Z79.82 Long term (current) use of aspirin; Z86.73 Personal history of transient ischemic attack (TIA), and cerebral infarction without residual deficits; Z87.891 Personal history of nicotine dependence
CPT/HCPCS: 36415; 71045; 78452; 80048; 80061; 82962; 84484; 85025; 85027; 85347; 85610; 85730; 93005; 93017; 93458; 93571; 99152; 99153; 99218; 99283; A9500; J7030; Q9967; A4216; C1769; C1887; C1894; G0378; J2785

== ENCOUNTER → 2017-12-22 09:18 | Outpatient (CLI) | payer MEDICARE, SELFPAY ==
[2017-12-22 10:57] LABS: Anion Gap 7 (5-15); BUN 15 mg/dL (7-18); BUN/Creat Ratio 15.3 RATIO (10-20); Calcium,Total 9.4 mg/dL (8.5-10.1); Chloride 100 mmol/L (98-107); Creatinine, Serum 0.98 mg/dL (0.70-1.30); EST Glomerular Filtration Rate 82 mL/min (>60); Est Glom Filt Rate - Afr Amer 100 mL/min (>60); Glucose 170 mg/dL (74-106); Potassium 4.1 mmol/L (3.5-5.1); Sodium Level 133 mmol/L (136-145)
== END ==
PROVIDERS: Family Provider Family Medicine; PCP Family Medicine
DX: E87.6 Hypokalemia (principal)
CPT/HCPCS: 36415; 80048

== ENCOUNTER → 2022-06-26 | Outpatient (CLI) | payer MEDICARE, SELFPAY ==
--- NOTE | 2022-06-26 06:08 | ECHOCS_ITS ---
Reason For Study: AFib Procedure This was a 2D Doppler, Color Flow transthoracic echocardiogram. The study was technically difficult. Contrast injection was performed. Exam performed in department. Left Ventricle Normal LV size. Left ventricular systolic function is normal. The estimated ejection fraction is 65 %. Stage 2 diastolic dysfunction. No regional wall motion abnormalities noted. Right Ventricle Normal RV size. Normal systolic function. Atria The left atrium is mildly enlarged. Normal right atrium. No doppler evidence for ASD. Mitral Valve There is moderate mitral annular calcification. Extension of the mitral annular calcification onto the base of the posterior mitral valve leaflet. Trivial mitral valve insufficiency. Tricuspid Valve Normal tricuspid valve. Trivial tricuspid valve insufficiency. Right ventricular systolic pressure estimated to be 23 mmHg. Aortic Valve Trisinus/trileaflet aortic valve. Moderate focal aortic valve calcification. Pulmonic Valve The pulmonic valve is not well visualized. Great Vessels The aortic root is not well visualized. Pericardium/Pleural No pericardial effusion. Medication 20 gauge I.V. with prn adaptor inserted into right arm. Diluted definity 2ml given slow IV push to enhance endocardial definition. MMode/2D Measurements & Calculations LVIDd: 5.2 cm IVSd: 0.96 cm LA dimension: 5.0 cm LVIDs: 3.4 cm LVPWd: 1.0 cm RVDd: 3.3 cm FS: 34.9 % LAV(MOD-bp): 77.8 ml LVAd ap4: 37.0 cm2 SV(MOD-sp4): 95.8 ml LAV(MOD-bp) Indexed: 34.1 ml/m2 LVLd ap4: 8.0 cm LAV(MOD-sp2): 80.8 ml EDV(MOD-sp4): 143.2 ml LAV(MOD-sp4): 74.2 ml EDV(sp4-el): 146.0 ml LVAs ap4: 19.2 cm2 LVLs ap4: 6.4 cm ESV(MOD-sp4): 47.4 ml ESV(sp4-el): 48.7 ml EF(MOD-sp4): 66.9 % EF(sp4-el): 66.7 % SV(sp4-el): 97.3 ml LA A4 area: 23.4 cm2 RA A4 area: 17.3 cm2 Time Measurements MV dec time: 0.23 sec Doppler Measurements & Calculations MV E max syed: 106.9 cm/sec Lat Peak E' Syed: 6.9 cm/sec Med Peak E' Syed: 6.1 cm/sec MV A max syed: 89.9 cm/sec E/E' lat: 15.4 E/E' med: 17.5 MV E/A: 1.2 MV V2 max: 126.5 cm/sec MV P1/2t max syed: 127.5 cm/sec Ao V2 max: 150.1 cm/sec MV max P.4 mmHg MV P1/2t: 81.5 msec Ao max P.0 mmHg MV V2 mean: 61.0 cm/sec MV mean P.9 mmHg MV dec slope: 458.3 cm/sec2 MV V2 VTI: 46.3 cm MVA(P1/2t): 2.7 cm2 LV V1 max: 97.0 cm/sec PA V2 max: 94.8 cm/sec TR max syed: 225.9 cm/sec LV V1 max P.8 mmHg PA V2 mean: 65.3 cm/sec TR max P.4 mmHg ECHO/Echo Complete W/ Contrast Interpretation Summary The study was technically difficult. Contrast injection was performed. Left ventricular systolic function is normal. The estimated ejection fraction is 65 %. The left atrium is mildly enlarged. There is moderate mitral annular calcification. Extension of the mitral annular calcification onto the base of the posterior mi tral valve leaflet. Trivial mitral valve insufficiency. Trivial tricuspid valve insufficiency. Moderate focal aortic valve calcification. Right ventricular systolic pressure estimated to be 23 mmHg. Stage 2 diastolic dysfunction. Ordering Physician: Rachel Mendoza Performed By: Gasper Nolan RCS
--- NOTE | 2022-06-26 13:24 | STRESSREP ---
Stress Test Report Date: 06-26-2022 Procedure: Pharmacologic stress nuclear imaging study Indications: Atrial fibrillation; CAD; hyperlipidemia; hypertension Consent: Per the patient Procedure: The patient underwent pharmacologic (Regadenoson 0.4mg ) evaluation with a peak heart rate of 88 beats per minute (57%predicted maximal heart rate) and a resting blood pressure of 132/70 mmHg and a peak blood pressure of 132/70 mmHg. The baseline ECG demonstrated sinus bradycardia; poor R wave progression. The peak pharmacologic ECG demonstrated no obvious ECG changes. There were no cardiac dysrhythmias pretest, during pharmacologic infusion, or recovery. There was no complaint of chest discomfort during pharmacologic infusion or recovery. The examination was discontinued secondary to completion of protocol. Impression: 1. Pharmacologic (Regadenoson) evaluation 2. Peak pharmacologic ECG with no obvious ECG changes. 3. There were no cardiac dysrhythmias pretest, during pharmacologic infusion, or recovery. 4. Nuclear images pending Myocardial perfusion imaging study: Technique: The patient was injected with 15.0 millicuries of technetium 99m Cardiolite and subsequently rest SPECT Cardiolite nuclear imaging was obtained in the horizontal long, vertical long, and short axis views. The patient underwent pharmacologic (Regadenoson) evaluation with a peak heart rate of 88 beats per minute (57% percent predicted maximal heart rate) and a resting blood pressure of 132/70 mmHg and a peak blood pressure of 132/70 mmHg. The patient was injected with 44.1 millicuries of technetium 99m Cardiolite and subsequently stress SPECT Cardiolite nuclear imaging was obtained in the horizontal long, vertical long, and short axis views. A gated Cardiolite study at peak stress was obtained. Interpretation: Rest and stress SPECT Cardiolite nuclear imaging status post realignment, normalization, and attenuation correction demonstrate relative uniform tracer uptake and myocardial perfusion appearing within normal limits. There is end systolic thickening and brightening. The gated Cardiolite study demonstrates myocardial thickening and inward wall motion. The reported LVEF is 63%. Impression: 1. Rest and stress SPECT Cardiolite nuclear imaging demonstrate relative uniform tracer uptake and myocardial perfusion appearing within normal limits. 2. The gated Cardiolite study reports an LVEF of 63%. This note was generated with [employer] software. It may contain incorrect words, spelling, and punctuation that were not noted in checking the note before signing.
== END | disposition home or self-care (01) ==
PROVIDERS: PCP Family Medicine; Visit Provider Nurse Practitioner Gerontology
DX: I25.10 Atherosclerotic heart disease of native coronary artery without angina pectoris (principal); I48.0 Paroxysmal atrial fibrillation
CPT/HCPCS: 78452; 93017; 93306; A9500; Q9957; A4216; C8929; J2785

== ENCOUNTER → 2022-07-02 | Outpatient (CLI) | payer MEDICARE, SELFPAY ==
[2022-07-02 11:36] LABS: Anion Gap 6 (5-15); BUN 14 mg/dL (7-18); BUN/Creat Ratio 12.3 RATIO (10-20); Calcium,Total 10.3 mg/dL (8.5-10.1); Chloride 103 mmol/L (98-107); Creatinine, Serum 1.14 mg/dL (0.70-1.30); EST Glomerular Filtration Rate 68 mL/min (>60); Est Glom Filt Rate - Afr Amer 83 mL/min (>60); Glucose 123 mg/dL (74-106); Potassium 4.9 mmol/L (3.5-5.1); Sodium Level 138 mmol/L (136-145)
== END | disposition home or self-care (01) ==
PROVIDERS: Referring Provider Nurse Practitioner Gerontology; Visit Provider Nurse Practitioner Gerontology
DX: I10 Essential (primary) hypertension (principal)
CPT/HCPCS: 36415; 80048

== ENCOUNTER 2022-07-14 07:51 | Day surgery (SDC) | payer MEDICARE, SELFPAY ==
[2022-07-14] VITALS (7 sets, daily range): BP systolic 122–155; BP diastolic 69–75; PULSE 52–66; RESP 16–17; TEMP 36.2–36.4; O2SAT 92–98; BMI 35.7
[2022-07-14] MEDS: Lactated Ringers 1,000 ML 15 ML IV (08:16)
--- NOTE | 2022-07-14 09:00 | COLBX_PTH ---
PATIENT: BARRERA ZHU LOC: EN U#:[id number] AGE/SX: 66/M ROOM: RE07/14/[address]: Dr. Wade Looney DO : 1955 BED: DIS: 07/14/2022 SPEC #: [id number] RECD: 07/14/22 10:29 STATUS: SANDRA RHEA #: [id number] RAMONA: 07/14/22 09:[address]: Wade Looney DEPT: SURGICAL PATHOLOGY RECD BY: Nisreen Mc ENTERED: 07/14/22 11:49 SP TYPE: COLON BX OTHR DR: Katheryn Primary Care Phys Tissues: A - COLON BIOPSY B - Cecum, NOS C - COLON BIOPSY D - Descending colon E - Sigmoid colon biopsy Procedures: Surgery Specimen Level IV HEADER OPERATION: Colonoscopy ? open access (MAC), biopsy, polypectomy PRE-OP DIAGNOSIS: Screening TISSUE SUBMITTED: A ? Hepatic flexure polyp biopsy, B ? Cecal polyp biopsy, C ? Polyp splenic flexure, D ? Polyp descending colon, E ? Polyps sigmoid MICROSCOPIC DIAGNOSIS A. Hepatic flexure polyp, biopsy: Tubular adenoma. B. Cecal polyp, biopsy: Fragments of tubular adenoma. C. Polyp at splenic flexure, polypectomy: Fragments of tubular adenoma. D. Polyp descending colon, polypectomy: Tubular adenoma. E. Polyps sigmoid colon, polypectomy: Fragments of tubular adenoma. Fragments of fecal material. SJ:sage 07/15/2022 MICROSCOPIC DESCRIPTION Slides are reviewed. GROSS DESCRIPTION A - Received in fixative is one container labeled with the patient's name and designated biopsy hepatic flexure polyp. The specimen consists of multiple irregular fragments of light leonardo soft tissue that in aggregate measure 1.0 x 0.3 x 0.1 cm. The specimen is totally submitted in one cassette. B - Received in fixative is one container labeled with the patient's name and designated cecal polyp biopsy. The specimen consists of multiple irregular fragments of light leonardo soft tissue that in aggregate measure 0.8 x 0.3 x 0.1 cm. The specimen is totally submitted in one cassette. C - Received in fixative is one container labeled with the patient's name and designated polyp splenic flexure. The specimen consists of multiple irregular fragments of light leonardo soft tissue that in aggregate measure 1.8 x 0.5 x 0.3 cm. The specimen is totally submitted in one cassette. D - Received in fixative is one container labeled with the patient's name and designated polyp descending colon. The specimen consists of one irregular fragment of light leonardo soft tissue that measures 0.3 x 0.2 x 0.1 cm. The specimen is totally submitted in one cassette. E - Received in fixative is one container labeled with the patient's name and designated polyps sigmoid colon. The specimen consists of multiple irregular fragments of light leonardo soft tissue that in aggregate measure 1.5 x 1.0 x 0.3 cm. The specimen is totally submitted in one cassette. / SJ:rg 07/14/2022 TC:1 CPT: 39649 x5
--- NOTE | 2022-07-14 09:01 | PCM.HP.STD ---
[facility] - General General Date of Admission: 07/14/22 Date of Service: 07/14/22 Chief Complaint: Screening colonoscopy HPI Narrative BARRERA ZHU, is a 66 M who presents today for screening colonoscopy. He has a past medical history of rheumatoid arthritis, type 2 diabetes, CAD, proximal atrial fib flutter on Eliquis 5 mg p.o. twice daily, atorvastatin 40, glimepiride 2 mg and detemir insulin. His last colonoscopy was in 2012 and was reported as normal. He is here today for screening colonoscopy. He is not have any abdominal pain. He does not have any nausea. He does not have any chest pain shortness of breath. He is not having any weakness. He is not have any headache or dizziness. [facility] Medical History Acute CVA (cerebrovascular accident) Alcohol use Atherosclerosis of [place] coronary artery of [place] heart without angina pectoris Cardiology follow-up encounter Chest pain Diarrhea Dietary restriction Encounter for monitoring anti-arrhythmic therapy Essential hypertension Former smoker High cholesterol History of atrial fibrillation History of echocardiogram History of edema History of left heart catheterization (LHC) (~12/14/17) History of pain when walking History of stress test Hypertension Insulin dependent diabetes mellitus Paroxysmal atrial fibrillation Paroxysmal atrial flutter Pure hypercholesterolemia Rheumatoid arthritis Rheumatoid arthritis Type II diabetes mellitus Home Medications atorvastatin 40 mg tablet 40 mg PO QHS #30 tabs 07/28/15 [Rx Last Taken 08/27/15 22:00] losartan 100 mg tablet 100 mg PO DAILY blood pressure 12/12/17 [History Last Taken Unknown] apixaban 5 mg tablet 5 mg PO BID #60 tabs 12/14/17 [Rx Last Taken 08/28/15 06:30] metformin 500 mg tablet 1,000 mg PO BIDCM ##0 12/14/17 [Rx Last Taken 08/28/15 06:30] nitroglycerin 0.4 mg sublingual tablet 0.4 mg sublingual Q5M PRN Chest Pain #20 tabs 12/14/17 [Rx Last Taken Unknown] ammonium lactate 5 % lotion 1 applic topical DAILY 06/13/20 [History Last Taken Unknown] triamcinolone acetonide 0.025 % topical cream 1 applic topical BID 06/13/20 [History Last Taken Unknown] insulin aspart U-100 100 unit/mL (3 mL) subcutaneous pen (Novolog FlexPen U-100 Insulin aspart) 8 unit subcut QAC 06/17/22 [History Last Taken Unknown] insulin detemir U-100 100 unit/mL (3 mL) subcutaneous pen 32 unit subcut QPM 06/17/22 [History Last Taken Unknown] isosorbide mononitrate 30 mg tablet,extended release 24 hr 30 mg PO DAILY #90 tabs 07/03/22 [Rx Last Taken Unknown] metoprolol tartrate 100 mg tablet 100 mg PO BID #180 tabs 07/03/22 [Rx Last Taken Unknown] glimepiride 2 mg tablet 2 mg PO DAILY 07/09/22 [History Last Taken Unknown] Allergy/AdvReac Type Severity Reaction Status Date / Time sitagliptin [From ] Allergy Intermediate Itching Verified 07/14/22 08:02 empagliflozin AdvReac Severe Verified 07/14/22 08:02 [From Jardiance] pain in perirectal region, HIGH Cholesterol Family History (Updated 07/08/22 @ 08:18 by Nila Aldana) Mother Pancreatic cancer Father PAD (peripheral artery disease) Heart disease Grandfather Prostate cancer Surgical History History of cardiac catheterization History of colonoscopy History of hernia repair Hx of eye surgery Social History Smoking Status: Former smoker how long ago did patient quit smokin years ago alcohol intake: never substance use type: does not use caffeine: No ROS Review of Systems ROS Unobtainable: other Constitutional Constitutional: Denies fatigue, fever(s), poor appetite, weight gain or weight loss ENT HEENT: Denies mouth lesions Cardiovascular Cardiovascular: Denies abdominal bloating, abdominal edema or abdominal pain Respiratory/Chest Respiratory/Chest: Denies change in mental status, change in phlegm color, chest congestion or chest tightness Gastrointestinal Gastrointestinal: Denies belching, bloating, change in bowel habits, change in stool character, chewing difficulty, coffee ground emesis, constipation, cramping, diarrhea, dyspepsia, dysphagia, early satiety, excessive flatus, fecal incontinence, heartburn, hematemesis, hematochezia, hemorrhoids, loose stools, melena, nausea, odynophagia, rectal bleeding, tenesmus, vomiting or weight changes Genitourinary Genitourinary: Denies abdominal discomfort, burning urination or itching Musculoskeletal Musculoskeletal: Reports as per HPI; Denies muscle weakness or myalgias Integumentary Integumentary: Denies jaundice Neurologic Neurologic: Denies lack of coordination or weakness Psychiatric Psychiatric: Denies confusion, depression, memory loss, mood swings, paranoia or suicidal ideation Endocrine Endocrinology: Denies systems reviewed and no addt'l complaints, except as documented Hematologic/Lymphatic Hematologic/Lymphatic: Denies anemia, easy bleeding, easy bruising or lymphadenopathy Allergic/Immunologic Allergic/Immunologic: Denies systems reviewed and no addt'l complaints, except as documented Vital Signs Vital Signs Vital Signs: 07/14/22 08:16 07/14/22 08:16 Temperature 97.6 F L Temperature Source Temporal Pulse Rate 60 Respiratory Rate 17 Respiratory Pattern Normal Blood Pressure 155/74 H Blood Pressure Mean 101 Blood Pressure Source Monitor Blood Pressure Position Semi-Fowlers Blood Pressure Location Left Arm Pulse Ox 94 Oxygen Delivery Method Room Air Weight Weight: 249 lb 1.957 oz Body Mass Index (BMI) 35.7 Physical Exam Const alert General Appearance: cooperative Orientation / Consciousness: oriented to person HEENT hearing grossly normal bilaterally Head and Scalp: normal to inspection Face and Sinus: face symmetric Nose: external nose normal Mouth: oral and palatal mucosa normal Eyes conjunctivae normal General Eye: normal appearance of both eyes Neck full ROM General: normal visual inspection Lymph Lymphatic: no lymphadenopathy noted Chest inspection of chest normal and palpation of chest normal Chest: symmetrical chest wall rise Resp normal respiratory effort Effort and Inspection: able to speak in complete sentences Cardio regular rate GI non-distended Percussion: normal to percussion Rectal Exam: deferred Neuro Speech: speech normal Gait (Neuro): normal gait Assessment & Plan Assessment/Plan (1) Encounter for screening for malignant neoplasm of colon: PLAN: He was explained alternatives, risk, benefits including any, infection, sepsis, perforation, need for emergent urgent . He will plan ASA of 3.
[2022-07-14 09:40] LABS: Bedside Glucose 220 mg/dL (74-106)
--- NOTE | 2022-07-14 09:57 | OP.COLON_ITS ---
Patient Name: Az Hudson Procedure Date: 07/14/2022 9:02 AM Date of : 1955 Age: 66 Procedure: Colonoscopy Indications: Screening for colorectal malignant neoplasm Providers: Wade Looney DO Medicines: Monitored Anesthesia Care Patient Profile: Last Colonoscopy: 10 years ago. Complications: No immediate complications. Procedure: Pre-Anesthesia Assessment: - Prior to the procedure, a History and Physical was performed, and patient medications and allergies were reviewed. The risks and benefits of the procedure and the sedation options and risks were discussed with the patient. All questions were answered and informed consent was obtained. Patient identification and proposed procedure were verified by the physician in the pre-procedure area. Mental Status Examination: alert and oriented. Airway Examination: normal oropharyngeal airway and neck mobility. Respiratory Examination: clear to auscultation. CV Examination: normal. Prophylactic Antibiotics: The patient does not require prophylactic antibiotics. Prior Anticoagulants: The patient has taken no previous anticoagulant or antiplatelet agents. After reviewing the risks and benefits, the patient was deemed in satisfactory condition to undergo the procedure. The anesthesia plan was to use monitored anesthesia care (MAC). Immediately prior to administration of medications, the patient was re-assessed for adequacy to receive sedatives. The heart rate, respiratory rate, oxygen saturations, blood pressure, adequacy of pulmonary ventilation, and response to care were monitored throughout the procedure. The physical status of the patient was re-assessed after the procedure. After I obtained informed consent, the scope was passed under direct vision. Throughout the procedure, the patient's blood pressure, pulse, and oxygen saturations were monitored continuously. The colonoscope was introduced through the anus and advanced to the cecum, identified by appendiceal orifice and ileocecal valve. The colonoscopy was performed without difficulty. The patient tolerated the procedure well. The quality of the bowel preparation was fair. Scope In: 9:11:24 AM Scope Withdrawal Time 0 hours 27 minutes 51 seconds Scope Out: 9:47:07 AM Total Procedure Duration Time 0 hours 35 minutes 43 seconds Findings: The perianal and digital rectal examinations were normal. Multiple small and large-mouthed diverticula were found in the recto-sigmoid colon, sigmoid colon and descending colon. Eight sessile polyps were found in the sigmoid colon, descending colon, splenic flexure and ascending colon. The polyps were 1 to 2 mm in size. These polyps were removed with a jumbo cold forceps. Resection and retrieval were complete. Estimated blood loss: none. A 5 mm polyp was found in the cecum. The polyp was sessile. The polyp was removed with a jumbo cold forceps. Resection and retrieval were complete. Verification of patient identification for the specimen was done. Estimated blood loss was minimal. Two sessile polyps were found in the sigmoid colon. The polyps were 5 mm in size. These polyps were removed with a cold snare. Resection and retrieval were complete. Verification of patient identification for the specimen was done. Estimated blood loss was minimal. Non-bleeding internal hemorrhoids were found during retroflexion. The hemorrhoids were Grade I (internal hemorrhoids ) with grade 1 to grade 2 rectal prolapse. Impression: - Preparation of the colon was fair. - Diverticulosis in the recto-sigmoid colon, in the sigmoid colon and in the descending colon. - Eight 1 to 2 mm polyps in the sigmoid colon, in the descending colon, at the splenic flexure and in the ascending colon, removed with a jumbo cold forceps. Resected and retrieved. - One 5 mm polyp in the cecum, removed with a jumbo cold forceps. Resected and retrieved. - Two 5 mm polyps in the sigmoid colon, removed with a cold snare. Resected and retrieved. - Non-bleeding internal hemorrhoids with grade 1 to grade 2 rectal prolapse Recommendation: - Repeat colonoscopy in 1 year for surveillance. - Continue present medications. Procedure Code(s): --- Professional --- 07520, Colonoscopy, flexible; with removal of tumor(s), polyp(s), or other lesion(s) by snare technique 29508, 59, Colonoscopy, flexible; with biopsy, single or multiple CPT copyright 2017 [employer]. All rights reserved. The codes documented in this report are preliminary and upon platform builder review may be revised to meet current compliance requirements. Wade Looney DO 07/14/2022 9:57:16 AM This report has been signed electronically. Number of Addenda: 0 Note Initiated On: 07/14/2022 9:02 AM
--- NOTE | 2022-07-14 09:57 | OP.CCLET_ITS ---
07/14/2022 No Primary Care Physician Re : Colonoscopy procedure for Az Hudson [facility] Physician This procedure was performed on Thursday, July 14, 2022. My impressions and recommendations are as follows: Impressions : - Preparation of the colon was fair. - Diverticulosis in the recto-sigmoid colon, in the sigmoid colon and in the descending colon. - Eight 1 to 2 mm polyps in the sigmoid colon, in the descending colon, at the splenic flexure and in the ascending colon, removed with a jumbo cold forceps. Resected and retrieved. - One 5 mm polyp in the cecum, removed with a jumbo cold forceps. Resected and retrieved. - Two 5 mm polyps in the sigmoid colon, removed with a cold snare. Resected and retrieved. - Non-bleeding internal hemorrhoids with grade 1 to grade 2 rectal prolapse Recommendations : - Repeat colonoscopy in 1 year for surveillance. - Continue present medications. My findings are described in the full procedure note, which is enclosed. If I can be of further assistance, please feel free to contact me at . Sincerely, Wade Looney, 07/14/2022 9:57:16 AM This report has been signed electronically.
== END 2022-07-14 10:59 | disposition home or self-care (01) ==
LOC: EN 07:56 → AC 07:58
PROVIDERS: Visit Provider Internal Medicine Gastroenterology
PROC: 0DJD8ZZ Inspection of Lower Intestinal Tract, Via Natural or Artificial Opening Endoscopic (ICD-10-PCS; CPT 45378; principal; 2022-07-14 08:55)
DX: Z12.11 Encounter for screening for malignant neoplasm of colon (principal); I48.0 Paroxysmal atrial fibrillation; Z79.4 Long term (current) use of insulin; E11.9 Type 2 diabetes mellitus without complications; K64.0 First degree hemorrhoids; Z79.84 Long term (current) use of oral hypoglycemic drugs; I25.10 Atherosclerotic heart disease of native coronary artery without angina pectoris; K62.3 Rectal prolapse; K57.30 Diverticulosis of large intestine without perforation or abscess without bleeding; Z87.891 Personal history of nicotine dependence; E78.00 Pure hypercholesterolemia, unspecified; I10 Essential (primary) hypertension; Z80.0 Family history of malignant neoplasm of digestive organs; Z79.01 Long term (current) use of anticoagulants; Z86.73 Personal history of transient ischemic attack (TIA), and cerebral infarction without residual deficits; D12.0 Benign neoplasm of cecum; D12.3 Benign neoplasm of transverse colon; D12.5 Benign neoplasm of sigmoid colon
CPT/HCPCS: 45385; 45380; 82962; 88305; J7120; J2405

== ENCOUNTER 2022-07-30 19:37 | Emergency (ER) | payer MEDICARE, SELFPAY ==
[2022-07-30 19:38] VITALS: BP 154/83; PULSE 71; RESP 18; TEMP 36.5; O2SAT 98; BMI 36.9
[2022-07-30 19:43] VITALS: BP 175/85; PULSE 75; RESP 16; O2SAT 97
--- NOTE | 2022-07-30 19:48 | EKG12_ITS ---
Test Reason : cp Blood Pressure : / mmHG Vent. Rate : 073 BPM Atrial Rate : 073 BPM P-R Int : 208 ms QRS Dur : 086 ms QT Int : 406 ms P-R-T Axes : 040 -33 047 degrees QTc Int : 447 ms Normal sinus rhythm Left axis deviation Inferior infarct (cited on or before 27-JUL-2015) Abnormal ECG Confirmed by TEODORA CALIX, ELOISA ([id number]), society editor BIB ZEPEDA ([id number]) on 08/04/2022 10:40:21 AM Referred By: Martin Confirmed By:ROD ARAIZA MD
--- NOTE | 2022-07-30 19:50 | ED.VIS.CHEST ---
HPI History of Present Illness Chief Complaint: Chest Pain Detail of Chief Complaint: Chest pressure Informant: patient and spouse/S.O. Onset/Context/Timing Onset: Today (Onset 0200.) Activity at onset: sudden Timing: Continuous Quality: Positive for Heaviness and Tightness Location: Left Parasternal Current Severity: Mild Maximum Severity: Severe Worsened By: Nothing Relieved By: Nothing Associated Symptoms: Negative for Nausea, Vomiting, Diaphoresis, Dyspnea, Cough, Fever, Lightheadedness, Acid Reflux or Palpitations Narrative Narrative: Patient is a 66-year-old male with numerous cardiac risk factors. Of note he had a recent echocardiogram and nuclear stress test, June 26, 2022, that were both unremarkable. The results were documented in the MDM portion of the chart. Patient did take nitro for the chest pain. He was questioned again whether he has history of coronary disease. He and his stated no. He when asked why he has nitroglycerin his response was in case something happens . Patient denies reflux-like symptoms. He denies history of hiatal hernia or reflux. He denies black or maroon-colored stool. There is no history of trauma. He denies history of VTE. He denies leg pain or discoloration. He has swelling, which is chronic. He sleeps with his bed raised 15 degrees. He also uses a pillow. He denies any constitutional, infectious symptoms. He denies ocular, visual auditory symptoms. He denies intolerance to any foods. He denies history of pancreatitis. Prior Similar Symptoms: No Recent Illness/Hospitalization: No CVD Risk Factors: Positive for Hypertension, Diabetes and Hypercholesterolemia; Negative for Family History 1' </=55 PE Risk Factors: Negative for Recent Travel/Surgery, Recent Immobilization, Prior DVT or PE, Cancer or OCP + Smoking + >/=35 TAD Risk Factors: Positive for Hypertension; Negative for Marfan's Syndrome or Family History [facility] Medical History Acute CVA (cerebrovascular accident) Alcohol use Atherosclerosis of [place] coronary artery of [place] heart without angina pectoris Cardiology follow-up encounter Chest pain Diarrhea Dietary restriction Encounter for monitoring anti-arrhythmic therapy Essential hypertension Former smoker High cholesterol History of atrial fibrillation History of echocardiogram History of edema History of left heart catheterization (LHC) (~12/14/17) History of pain when walking History of stress test Hypertension Insulin dependent diabetes mellitus Paroxysmal atrial fibrillation Paroxysmal atrial flutter Pure hypercholesterolemia Rheumatoid arthritis Rheumatoid arthritis Type II diabetes mellitus Home Medications atorvastatin 40 mg tablet 40 mg PO QHS #30 tabs 07/28/15 [Rx Last Taken 08/27/15 22:00] apixaban 5 mg tablet 5 mg PO BID #60 tabs 12/14/17 [Rx Last Taken 08/28/15 06:30] nitroglycerin 0.4 mg sublingual tablet 0.4 mg sublingual Q5M PRN Chest Pain #20 tabs 12/14/17 [Rx Last Taken Unknown] ammonium lactate 5 % lotion 1 applic topical DAILY 06/13/20 [History Last Taken Unknown] triamcinolone acetonide 0.025 % topical cream 1 applic topical BID 06/13/20 [History Last Taken Unknown] isosorbide mononitrate 30 mg tablet,extended release 24 hr 30 mg PO DAILY #90 tabs 07/03/22 [Rx Last Taken Unknown] metoprolol tartrate 100 mg tablet 100 mg PO BID #180 tabs 07/03/22 [Rx Last Taken Unknown] glimepiride 2 mg tablet 2 mg PO DAILY 07/09/22 [History Last Taken Unknown] amlodipine 5 mg tablet 5 mg PO DAILY #30 tabs 07/21/22 [Rx Last Taken Unknown] insulin aspart U-100 100 unit/mL (3 mL) subcutaneous pen (Novolog FlexPen U-100 Insulin aspart) 12 unit (0.12 mL) subcut .tidcm #32.4 mL 07/21/22 [Rx Last Taken Unknown] metformin 500 mg tablet 1,000 mg PO BIDCM #360 tabs 07/21/22 [Rx Last Taken Unknown] insulin detemir U-100 100 unit/mL (3 mL) subcutaneous pen 32 unit (0.32 mL) subcut QPM #30 mL 07/28/22 [Rx Last Taken Unknown] losartan 100 mg tablet 100 mg PO DAILY blood pressure #90 tabs 07/28/22 [Rx Last Taken Unknown] pen needle, diabetic 32 gauge x 5/32 (BD Ultra-Fine Vanessa Pen Needle) #200 ea 07/28/22 [Rx Last Taken Unknown] Allergy/AdvReac Type Severity Reaction Status Date / Time sitagliptin [From ] Allergy Intermediate Itching Verified 07/30/22 19:37 empagliflozin AdvReac Severe Verified 07/30/22 19:37 [From Jardiance] pain in perirectal region, HIGH Cholesterol Family History Mother Pancreatic cancer Father PAD (peripheral artery disease) Heart disease Grandfather Prostate cancer Surgical History History of cardiac catheterization History of colonoscopy History of hernia repair Hx of eye surgery Social History (Updated 07/30/22 @ 19:[address] Avery Salazar MD) household members: spouse Smoking Status: Former smoker how long ago did patient quit smokin years ago alcohol intake: never substance use type: does not use caffeine: No ROS ROS ED Constitutional Constitutional ED: Denies chills, fever(s) or subjective Eyes Eyes: Reports none ENT ENT ED: Denies ear pain, rhinorrhea or sore throat Cardiovascular Cardiovascular: Reports as per HPI; Denies orthopnea or paroxysmal nocturnal dyspnea Respiratory/Chest Respiratory/Chest: Denies cough, dyspnea, dyspnea on exertion, orthopnea or paroxysmal nocturnal dyspnea Gastrointestinal Gastrointestinal: Denies abdominal pain, constipation, diarrhea, melena, nausea or vomiting Musculoskeletal Musculoskeletal: Denies arthralgias, back pain, myalgias or neck pain Neurologic Neurologic: Denies headache(s), paresthesias or weakness Psychiatric Psychiatric: Denies anxiety or depression Endocrine Endocrinology: Denies cold intolerance, heat intolerance, polydipsia or polyuria Hematologic/Lymphatic Hematologic/Lymphatic: Reports other Details: Patient is on Eliquis for his paroxysmal atrial fibrillation. ; Denies easy bleeding or easy bruising EXAM Physical Exam Const Vital Signs: 07/30/22 19:38 07/30/22 19:43 07/30/22 19:43 Temperature 97.7 F L Temperature Source Temporal Pulse Rate 71 75 Respiratory Rate 18 16 Respiratory Effort Normal Blood Pressure 154/83 H 175/85 H Blood Pressure Mean 106 115 Pulse Ox 98 97 Oxygen Delivery Method Room Air Room Air Positive well nourished, well developed and obese General Appearance ED: well developed and NAD; Negative for pallor Nutritional Appearance: obese HEENT Reports moist mucous membranes; Denies TM's clear HEENT Narrative: Alopecia normocephalic and atraumatic Tympanic Membrane ED: Negative for TM's clear Eyes PERRL and EOMs intact bilaterally General Eye ED: Negative for pale conjunctiva or scleral icterus Neck no lymphadenopathy, supple and no JVD Chest Wall inspection of chest normal and palpation of chest normal Resp normal respiratory effort and clear to auscultation bilaterally Cardio regular rate, regular rhythm, S1 normal heart sound, S2 normal heart sound and no murmurs GI normal to inspection, nondistended, normoactive bowel sounds, soft to palpation, non-distended and no masses; Negative for non-tender or hepatosplenomegaly GI Narrative: Patient reported pain in the left upper quadrant. Back/Spine no CVA tenderness and no thoracic nor lumbar tenderness Extremity Extremity Narrative: There is no asymmetry, swelling, discoloration, leg vein distention, palpable cords or tenderness along the distribution of the deep venous system. General Extremety ED: Yes edema General Extremity: edema Neuro oriented x3 and CN's II-XII intact bilaterally Sensorium / Orientation: awake and alert Psych mental status grossly normal Skin no rashes or lesions noted and no wounds General Skin Exam: Negative for jaundice or pallor MDM MDM MDM Narrative Medical decision making narrative: She had a recent echocardiogram and nuclear stress test, June 26, 2022. The results of the echo are as follow: Left ventricular systolic function was normal with an ejection fraction of 65%. The left atrial is mildly enlarged. There is moderate mitral annular calcification noted. There is trivial mitral and tricuspid insufficiency. Right ventricular systolic pressure estimated to be 23 mmHg. There was stage II diastolic dysfunction. The nuclear stress test read by Dr. Wheeler was unremarkable. With history of diabetes, atrial fibrillation, hypercholesterolemia, hypertension need to evaluate for cardiac versus noncardiac etiology. To evaluate patient's presentation will obtain EKG to look for acute ischemic changes. There were none. Troponin to determine if his there is any evidence of injury since his EKG is unremarkable. CBC to assess H&H. Basic metabolic panel to assess glucose, CO2 anion gap and renal function. Chest x-ray was obtained to determine if there is a pulmonary or noncardiac cause of his chest pain. History & Record Review Discussion w/independent historian: Patient and Significant other Additional record(s) reviewed:: Prior outpatient record and Prior labs Lab Data Attestation: I reviewed the patient's lab results. Lab results narrative: CBC is unremarkable. Labs: Laboratory Results - last 24 hr 07/30/22 07/30/22 19:50 19:50 WBC 9.2 RBC 4.22 L Hgb 14.1 Hct 39.6 L MCV 93.8 MCH 33.4 H MCHC 35.6 RDW Std Deviation 46.0 H RDW Coeff of [place] 13.3 Plt Count 277 MPV 9.6 Immature Gran % (Auto) 0.200 Neut % (Auto) 61.5 Lymph % (Auto) 27.2 Sanders % (Auto) 7.8 Eos % (Auto) 2.9 Baso % (Auto) 0.4 Absolute Neuts (auto) 5.7 Absolute Lymphs (auto) 2.51 Nucleated RBC % 0 Sodium 134 L Potassium 4.0 Chloride 101 Carbon Dioxide 23.0 Anion Gap 10 BUN 15 Creatinine 1.05 Estim Creat Clear Calc 71.46 Est GFR (MDRD) Af Amer 91 Est GFR (MDRD) Non-Af 75 BUN/Creatinine Ratio 14.3 Glucose 256 H Calcium 9.4 Troponin I High Sens 16 Radiography Chest X-Ray - ED: 1 View and Read by ED Physician (Single view portable chest x-ray was independently reviewed interpreted by me at 2009. Cardiac silhouette size unremarkable. Monitor leads noted. Lung parenchyma normal. Mediastinum is normal. [place] structures are unremarkable.) Diagnostic Testing: Clinical Impression(s) from Imaging Studies Chest X-Ray 07/30/22 19:58 IMPRESSION: No radiographic evidence of acute cardiopulmonary disease. Electronically Signed: Bayron Martinez MD at 20:13 EDT Reading Location ID and State: [facility] / [place] , Service support , Treatment and Re-Evaluation :: Patient's son were notified at 2014 that the hospitalist would be in to see them for admission. He states he will wait. Of note his eyes are now noted to be deviated to the left. Which raises concern that this does represent a stroke. Unfortunately he is outside the window for thrombolytics and there was no LVO noted on the CTA of the head and neck. Discharge Plan Triage Chief Complaint: Chest Pain ED Provider: Avery Salazar Dx/Rx/DC Orders Clinical Impression: Acute CVA (cerebrovascular accident), Expressive aphasia, Type 1 diabetes Prescriptions: No Action ammonium lactate 5 % lotion 5 % lotion 1 applic TOPICAL DAILY triamcinolone acetonide 0.025 % cream 1 applic TOPICAL BID atorvastatin 40 MG tablet 40 mg PO QHS Qty: 30 3RF Label Comments: Cholesterol nitroglycerin 0.4 MG tablet 0.4 mg SUBLINGUAL Q5M PRN (Reason: Chest Pain) Qty: 20 0RF apixaban 5 MG tablet 5 mg PO BID Qty: 60 3RF Label Comments: Blood Thinner Rx Instructions: resume 12/15/ glimepiride 2 mg tablet 2 mg PO DAILY metoprolol tartrate 100 mg tablet 100 mg PO BID Qty: 180 3RF Label Comments: Heart/BP isosorbide mononitrate 30 mg tablet extended release 24 hr 30 mg PO DAILY Qty: 90 3RF amlodipine 5 mg tablet 5 mg PO DAILY Qty: 30 11RF metformin 500 mg tablet 1,000 mg PO BIDCM Qty: 360 1RF Label Comments: Diabetes insulin aspart U-100 [Novolog FlexPen U-100 Insulin] 100 unit/mL (3 mL) insulin pen 12 unit subcut .tidcm Qty: 32.4 1RF (DME) pen needle, diabetic [BD Ultra-Fine Vanessa Pen Needle] 32 gauge x 5/32 needle See Rx Instructions .ROUTE .MEDSUPPLY Qty: 200 8RF Rx Instructions: four time daily insulin detemir U-100 100 unit/mL (3 mL) insulin pen 32 unit subcut QPM Qty: 30 1RF losartan 100 mg tablet 100 mg PO DAILY Qty: 90 3RF Primary Care Provider: Ct Murphy Referrals: Care Physician,No Primary [Non-Staff] - Disposition Disposition: Acute Care Hospital [facility]
[2022-07-30] MEDS: Aspirin 81 MG TAB.CHEW 324 MG PO (19:51)
--- NOTE | 2022-07-30 19:58 | RAD_ITS ---
EXAM: XR CHEST, 1 VIEW CLINICAL INDICATION: chest pain TECHNIQUE: Frontal view of the chest. This report was created using [employer] report generation technology. COMPARISON: 12.12.17 FINDINGS: LUNGS AND PLEURAL SPACES: Unremarkable. No consolidation or edema. No pneumothorax. No effusion. HEART: Unremarkable. Cardiac silhouette not enlarged. MEDIASTINUM: Central airways and mediastinal contour are unremarkable. BONES/JOINTS: Unremarkable. SOFT TISSUES: Unremarkable. RAD/Chest 1 View (Portable) IMPRESSION: No radiographic evidence of acute cardiopulmonary disease. Electronically Signed: Bayron Martinez MD at 20:13 EDT ,
[2022-07-30 20:00] LABS: Absolute Lymphocyte Count 2.51 X10^3/uL (0.83-4.51); Absolute Neutrophil Count 5.7 X10^3/uL (2.0-7.7); Basophil# 0.04 X10^3/uL; Basophil% 0.4 % (0-1); Eosinophil# 0.27 X10^3/uL; Eosinophils% 2.9 % (0-5); Hematocrit 39.6 % (40-54); Hemoglobin 14.1 g/dL (13.0-16.5); Lymphocyte # 2.51 X10^3/ul (0.83-4.51); Lymphocyte % 27.2 % (19-41); Mean Corp Hgb Conc 35.6 g/dL (32-36); Mean Corpuscular Hgb 33.4 pg (27.0-32.0); Mean Corpuscular Volume 93.8 fL (80-94); Mean Platelet Vol. 9.6 fl (6.2-12.0); Monocyte# 0.72 X10^3/uL; Monocyte% 7.8 % (0-10); NRBC Flagged by Analyzer 0 % (0-5); Neutrophil # 5.66 X10^3/uL (2.7-7.7); Neutrophil % 61.5 % (47-70); Platelet Count 277 K/mm3 (150-450); RBC Distribution Width CV 13.3 % (11.6-14.6); Red Blood Count 4.22 M/mm3 (4.6-6.2); White Blood Count 9.2 K/mm3 (4.4-11.0)
[2022-07-30 20:16] LABS: Anion Gap 10 (5-15); BUN 15 mg/dL (7-18); BUN/Creat Ratio 14.3 RATIO (10-20); Calcium,Total 9.4 mg/dL (8.5-10.1); Chloride 101 mmol/L (98-107); Creatinine, Serum 1.05 mg/dL (0.70-1.30); EST Glomerular Filtration Rate 75 mL/min (>60); Est Glom Filt Rate - Afr Amer 91 mL/min (>60); Estimated Creatinine Clearance 71.46 ml/min; Glucose 256 mg/dL (74-106); Sodium Level 134 mmol/L (136-145); Troponin-I HS (w/2H Reflex) 16 pg/mL (3.0-78.0)
[2022-07-30 20:51] VITALS: BP 144/71; PULSE 74; RESP 15; O2SAT 98
[2022-07-30 20:57] VITALS: BP 144/71
[2022-07-30 21:57] LABS: Reflex Troponin-HS? (from REC) Y
== END 2022-07-30 20:58 | disposition home or self-care (01) ==
PROVIDERS: Emergency Provider Emergency Medicine; PCP Internal Medicine; Visit Provider Emergency Medicine
DX: R07.9 Chest pain, unspecified (principal); I48.0 Paroxysmal atrial fibrillation; Z79.4 Long term (current) use of insulin; E10.9 Type 1 diabetes mellitus without complications; E78.00 Pure hypercholesterolemia, unspecified; Z87.891 Personal history of nicotine dependence; I25.10 Atherosclerotic heart disease of native coronary artery without angina pectoris; R47.01 Aphasia; I10 Essential (primary) hypertension; Z79.899 Other long term (current) drug therapy; Z79.84 Long term (current) use of oral hypoglycemic drugs
CPT/HCPCS: 71045; 80048; 84484; 85025; 93005; 99285

== ENCOUNTER 2022-08-02 10:36 | Emergency (ER) | payer MEDICARE, SELFPAY ==
[2022-08-02 10:37] VITALS: BP 165/89; PULSE 72; RESP 14; TEMP 36.7; O2SAT 97; BMI 35.2
--- NOTE | 2022-08-02 10:57 | EX.ED.UPPERE ---
HPI History of Present Illness Chief Complaint: Upper Extremity Injury Detail of Chief Complaint: Injury to right shoulder Informant: patient Narrative Narrative: Patient presents the emergency department with injury to right shoulder that occurred yesterday. Patient states he was letting his dog out when the dog pulled on the leash and pulled him off the second step to the outside. Patient fell into a garden and thinks he landed on his left shoulder. Denies striking his head. No loss of consciousness. Denies neck pain. Complains of pain in the right shoulder and decreased ability to move it. Patient has no other complaints of injury. [facility] Medical History Acute CVA (cerebrovascular accident) Alcohol use Atherosclerosis of [place] coronary artery of [place] heart without angina pectoris Cardiology follow-up encounter Chest pain Diarrhea Dietary restriction Encounter for monitoring anti-arrhythmic therapy Essential hypertension Former smoker High cholesterol History of atrial fibrillation History of echocardiogram History of edema History of left heart catheterization (LHC) (~12/14/17) History of pain when walking History of stress test Hypertension Insulin dependent diabetes mellitus Paroxysmal atrial fibrillation Paroxysmal atrial flutter Pure hypercholesterolemia Rheumatoid arthritis Rheumatoid arthritis Type II diabetes mellitus Home Medications atorvastatin 40 mg tablet 40 mg PO QHS #30 tabs 07/28/15 [Rx Last Taken 08/27/15 22:00] apixaban 5 mg tablet 5 mg PO BID #60 tabs 12/14/17 [Rx Last Taken 08/28/15 06:30] nitroglycerin 0.4 mg sublingual tablet 0.4 mg sublingual Q5M PRN Chest Pain #20 tabs 12/14/17 [Rx Last Taken Unknown] ammonium lactate 5 % lotion 1 applic topical DAILY 06/13/20 [History Last Taken Unknown] triamcinolone acetonide 0.025 % topical cream 1 applic topical BID 06/13/20 [History Last Taken Unknown] isosorbide mononitrate 30 mg tablet,extended release 24 hr 30 mg PO DAILY #90 tabs 07/03/22 [Rx Last Taken Unknown] metoprolol tartrate 100 mg tablet 100 mg PO BID #180 tabs 07/03/22 [Rx Last Taken Unknown] glimepiride 2 mg tablet 2 mg PO DAILY 07/09/22 [History Last Taken Unknown] amlodipine 5 mg tablet 5 mg PO DAILY #30 tabs 07/21/22 [Rx Last Taken Unknown] insulin aspart U-100 100 unit/mL (3 mL) subcutaneous pen (Novolog FlexPen U-100 Insulin aspart) 12 unit (0.12 mL) subcut .tidcm #32.4 mL 07/21/22 [Rx Last Taken Unknown] metformin 500 mg tablet 1,000 mg PO BIDCM #360 tabs 07/21/22 [Rx Last Taken Unknown] insulin detemir U-100 100 unit/mL (3 mL) subcutaneous pen 32 unit (0.32 mL) subcut QPM #30 mL 07/28/22 [Rx Last Taken Unknown] losartan 100 mg tablet 100 mg PO DAILY blood pressure #90 tabs 07/28/22 [Rx Last Taken Unknown] pen needle, diabetic 32 gauge x 5/32 (BD Ultra-Fine Vanessa Pen Needle) #200 ea 07/28/22 [Rx Last Taken Unknown] hydrocodone-acetaminophen 5-325mg 5mg-325mg 1 tab PO Q4H PRN PRN Pain 2 days #10 TABLETS 08/02/22 [Rx Last Taken Unknown] Allergy/AdvReac Type Severity Reaction Status Date / Time sitagliptin [From Januvia] Allergy Intermediate Itching Verified 08/02/22 10:40 empagliflozin AdvReac Severe Verified 08/02/22 10:40 [From Jardiance] pain in perirectal region, HIGH Cholesterol Family History Mother Pancreatic cancer Father PAD (peripheral artery disease) Heart disease Grandfather Prostate cancer Surgical History History of cardiac catheterization History of colonoscopy History of hernia repair Hx of eye surgery Social History (Updated 07/30/22 @ 19:[address] Avery Salazar MD) household members: spouse Smoking Status: Former smoker how long ago did patient quit smokin years ago alcohol intake: never substance use type: does not use caffeine: No ROS ROS ED Review of Systems ROS Unobtainable: other Constitutional Constitutional ED: Reports lethargy; Denies chills, fever(s), sweats or weight loss Eyes Eyes: Denies blurry vision, change in vision or diplopia ENT ENT ED: Denies rhinorrhea or sore throat Cardiovascular Cardiovascular: Denies chest pain, orthopnea or racing heartbeat Respiratory/Chest Respiratory/Chest: Denies cough, dyspnea, dyspnea on exertion, orthopnea or sputum Gastrointestinal Gastrointestinal: Denies abdominal pain, diarrhea, nausea or vomiting Genitourinary Genitourinary ED: Denies dysuria, hematuria or urinary frequency Musculoskeletal Musculoskeletal: Reports other Details: Right shoulder injury ; Denies arthralgias, back pain, myalgias or neck pain Integumentary Denies abscess, Abrasions or rash Neurologic Neurologic: Denies headache(s) or weakness Psychiatric Psychiatric: Denies anxiety, depression or suicidal thoughts Endocrine Endocrinology: Denies polydipsia, polyphagia or polyuria Hematologic/Lymphatic Hematologic/Lymphatic: Denies easy bleeding, easy bruising or lymphadenopathy Allergic/Immunologic Allergic/Immunologic ED: Denies mouth swelling, tongue swelling or urticaria EXAM Physical Exam Const Vital Signs: 08/02/22 10:37 Temperature 98.1 F Temperature Source Temporal Pulse Rate 72 Respiratory Rate 14 Blood Pressure 165/89 H Blood Pressure Mean 114 Pulse Ox 97 Oxygen Delivery Method Room Air Positive well nourished and well developed General Appearance ED: well developed and NAD HEENT Reports TM's clear and moist mucous membranes normocephalic and atraumatic; Negative for trauma or tenderness Tympanic Membrane ED: Yes TM's clear Eyes PERRL and EOMs intact bilaterally General Eye ED: Negative for pale conjunctiva or scleral icterus Neck no lymphadenopathy, supple and no JVD General: Negative for tenderness Chest Wall inspection of chest normal and palpation of chest normal Chest: Negative for tenderness Resp normal respiratory effort and clear to auscultation bilaterally Effort and Inspection: Negative for respiratory distress or pain with movement Auscultation: Negative for rhonchi, wheezes or diminished lung sounds Cardio regular rate, regular rhythm, S1 normal heart sound, S2 normal heart sound and no murmurs Peripheral Pulses: pulses 2+ throughout GI normal to inspection, nondistended, normoactive bowel sounds, soft to palpation, non-tender, non-distended and no masses Back/Spine no CVA tenderness and no thoracic nor lumbar tenderness Extremity Extremity Narrative: Right shoulder-patient has limited range of motion in abduction and rotation of the glenohumeral joint. There are some mild soft tissue swelling noted. There is no ecchymosis or bruising. Neurovascularly intact distally. No tenderness over the clavicle. General Extremety ED: Negative for edema General Extremity: Negative for edema Neuro oriented x3, CN's II-XII intact bilaterally, no sensory deficits noted and gait normal Sensorium / Orientation: awake, alert, oriented to person, oriented to place and oriented to time Motor Exam: strength 5/5 throughout and strength abnormal Psych mental status grossly normal Skin no rashes or lesions noted and no wounds MDM MDM MDM Narrative Medical decision making narrative: Patient had already had x-rays performed and were evaluated by myself. Patient had at least 4 views and on my interpretation I do not appreciate any fracture dislocations. Radiologist in agreement. Patient will be placed in a sling. Patient will be referred to orthopedics on-call for follow-up. He understands that I cannot rule out ligamentous injury such as rotator cuff injury. He may require further imaging such as possibly MRI to evaluate further. Patient given a prescription for Henry and a sling. Discharge Plan Triage Chief Complaint: Upper Extremity Injury ED Provider: Alyssa Dumont Dx/Rx/DC Orders Clinical Impression: Contusion of right shoulder, Sprain of right shoulder Instructions: ED Shoulder Sprain, ED Shoulder Contusion Prescriptions: New hydrocodone-acetaminophen [hydrocodone-acetaminophen] 5-325 mg tablet 1 tab PO Q4H PRN PRN (Reason: Pain) 2 Days Qty: 10 0RF No Action ammonium lactate 5 % lotion 5 % lotion 1 applic TOPICAL DAILY triamcinolone acetonide 0.025 % cream 1 applic TOPICAL BID atorvastatin 40 MG tablet 40 mg PO QHS Qty: 30 3RF Label Comments: Cholesterol nitroglycerin 0.4 MG tablet 0.4 mg SUBLINGUAL Q5M PRN (Reason: Chest Pain) Qty: 20 0RF apixaban 5 MG tablet 5 mg PO BID Qty: 60 3RF Label Comments: Blood Thinner Rx Instructions: resume 12/15/17 glimepiride 2 mg tablet 2 mg PO DAILY metoprolol tartrate 100 mg tablet 100 mg PO BID Qty: 180 3RF Label Comments: Heart/BP isosorbide mononitrate 30 mg tablet extended release 24 hr 30 mg PO DAILY Qty: 90 3RF amlodipine 5 mg tablet 5 mg PO DAILY Qty: 30 11RF metformin 500 mg tablet 1,000 mg PO BIDCM Qty: 360 1RF Label Comments: Diabetes insulin aspart U-100 [Novolog FlexPen U-100 Insulin] 100 unit/mL (3 mL) insulin pen 12 unit subcut .tidcm Qty: 32.4 1RF (DME) pen needle, diabetic [BD Ultra-Fine Vanessa Pen Needle] 32 gauge x 5/32 needle See Rx Instructions .ROUTE .MEDSUPPLY Qty: 200 8RF Rx Instructions: four time daily insulin detemir U-100 100 unit/mL (3 mL) insulin pen 32 unit subcut QPM Qty: 30 1RF losartan 100 mg tablet 100 mg PO DAILY Qty: 90 3RF Primary Care Provider: Ct Murphy Referrals: Ct Murphy MD [Primary Care Provider] - Stephen Garcia DO [Med Staff - Active Staff] - 5-7 Days Disposition Disposition: Home, Self Care
[2022-08-02 12:12] VITALS: BP 129/77; PULSE 62; RESP 15; O2SAT 99
== END 2022-08-02 12:14 | disposition home or self-care (01) ==
LOC: ED 11:17
PROVIDERS: Emergency Provider Emergency Medicine; PCP Internal Medicine; Visit Provider Emergency Medicine
DX: S43.401A Unspecified sprain of right shoulder joint, initial encounter (principal); I48.0 Paroxysmal atrial fibrillation; E11.9 Type 2 diabetes mellitus without complications; Z79.4 Long term (current) use of insulin; Z87.891 Personal history of nicotine dependence; E78.00 Pure hypercholesterolemia, unspecified; I25.10 Atherosclerotic heart disease of native coronary artery without angina pectoris; I10 Essential (primary) hypertension; S40.011A Contusion of right shoulder, initial encounter; Y93.K9 Activity, other involving animal care; W10.9XXA Fall (on) (from) unspecified stairs and steps, initial encounter; Z79.01 Long term (current) use of anticoagulants; Z79.84 Long term (current) use of oral hypoglycemic drugs; Z79.899 Other long term (current) drug therapy; M25.511 Pain in right shoulder
CPT/HCPCS: 73030; 99283

== ENCOUNTER → 2022-08-02 | Outpatient (CLI) | payer MEDICARE, SELFPAY ==
--- NOTE | 2022-08-02 09:57 | RAD_ITS ---
STUDY: X-RAY - RIGHT SHOULDER REASON FOR EXAM: Male, 66 years old. Pain TECHNIQUE: 4 view(s) of the shoulder. COMPARISON: None. FINDINGS: There is no evidence of fracture or dislocation. There are mild degenerative changes. There is a 2.2 x 1.6 cm ovoid lucent lesion with sclerotic borders in the proximal humerus which may represent a bone cyst. There are no radiodense foreign bodies. RAD/Shoulder min 2 Views IMPRESSION: No fracture or dislocation in the right shoulder. Mild degenerative change. 2.2 x 1.6 cm ovoid lucent lesion with sclerotic borders in the proximal humerus which may represent a bone cyst. Electronically Signed: Best Marcelino MD at 11:58 EDT ,
== END | disposition home or self-care (01) ==
LOC: RAD 09:55
PROVIDERS: PCP Internal Medicine
DX: M25.511 Pain in right shoulder (principal)
CPT/HCPCS: 73030

== ENCOUNTER → 2022-09-15 | Outpatient (CLI) | payer MEDICARE, SELFPAY ==
--- NOTE | 2022-09-15 07:47 | AAAS_ITS ---
Reason For Study: AAA SCREENING Aorta Measurements Aorta Doppler Measurements Proximal aorta measures2.29 x 2.29cm. in cross- Peak systolic flow velocities within the proximal sectional axis. aorta measure 85.7 cm/sec. Proximal aorta measures2.28cm. in longitudinal Peak systolic flow velocities within the mid aorta axis. measure 105.7 cm/sec. Mid aorta measures2.34 x 2.34cm. in cross- Peak systolic flow velocities within the distal sectional axis. aorta measure 96.6 cm/sec. Mid aorta measures2.40cm. in longitudinal axis. Distal aorta measures1.83 x 1.83cm. in cross- sectional axis. Distal aorta measures1.78cm. in longitudinal axis. Left Iliac Artery Left iliac artery measures 0.95 x 0.79 cm. in the cross-sectional axis. Left iliac artery measures 0.81 cm. in the longitudinal axis. Peak systolic velocity in the left iliac artery measures 122.2 cm/sec. Right Iliac Artery Right iliac artery measures 1.04 x .84 cm. in the cross-sectional axis. Right iliac artery measures 1.01 cm. in the longitudinal axis. Peak systolic velocity in the right iliac artery measures 98.4 cm/sec. Procedure Aorta IVC Iliac vasculature or bypass grafts [id number]. Technically difficult study. Exam performed in department. VL/AAA Screening Interpretation Summary Maximal mid abdominal aortic diameter of 2.34 x 2.34 cm. Borderline mid aortic flow velocity increase of 105 cm/s flow likely not clinically significant. Left common iliac artery normal at 0.95 x 0.79 cm in diameter Right common iliac artery normal at 1.04 x 0.84 cm in diameter This examination was noted to be technically difficult and images suggest that the vessels were deeply placed. Ordering Physician: Ct Murphy Referring Physician: Ct Murphy Performed By: Rosanna Lyon, RDCS, RVT
[2022-09-15 09:10] LABS: ALB/GLOB Ratio 0.8 RATIO (0.9-2.4); AST(SGOT) 23 U/L (15-37); Alanine Aminotransfer ALT/SGPT 39 U/L (16-61); Albumin, Serum 3.7 g/dL (3.2-5.0); Alkaline Phosphatase 84 U/L (45-117); Anion Gap 8 (5-15); BUN 20 mg/dL (7-18); BUN/Creat Ratio 19.2 RATIO (10-20); Calcium,Total 9.9 mg/dL (8.5-10.1); Chloride 101 mmol/L (98-107); Creatinine, Serum 1.04 mg/dL (0.70-1.30); EST Glomerular Filtration Rate 76 mL/min (>60); Est Glom Filt Rate - Afr Amer 92 mL/min (>60); Globulin 4.4 g/dL (2.2-4.2); Glucose 201 mg/dL (74-106); Potassium 4.6 mmol/L (3.5-5.1); Protein, Total 8.1 g/dL (6.4-8.2); Sodium Level 135 mmol/L (136-145)
== END | disposition home or self-care (01) ==
PROVIDERS: Nurse Practitioner Family; PCP Internal Medicine; Referring Provider Internal Medicine; Visit Provider Internal Medicine
DX: Z13.6 Encounter for screening for cardiovascular disorders (principal); I10 Essential (primary) hypertension; R60.0 Localized edema
CPT/HCPCS: 36415; 76706; 80053

== ENCOUNTER 2022-09-24 20:28 | Outpatient (CLI) | payer MEDICARE, SELFPAY | END 2022-09-24 23:59 | disposition home or self-care (01) | LOC: SL 20:28 | PROVIDERS: PCP Internal Medicine; Referring Provider Internal Medicine; Visit Provider Internal Medicine | DX: G47.33 Obstructive sleep apnea (adult) (pediatric) (principal); G47.10 Hypersomnia, unspecified; R29.818 Other symptoms and signs involving the nervous system | CPT/HCPCS: 95811 ==

== ENCOUNTER 2022-10-03 07:00 | Outpatient (RCR) | payer MEDICARE, SELFPAY ==
--- NOTE | 2022-09-23 09:09 | HP.PTEVAL_ITS ---
Patient's Visit Information BARRERA ZHU is a 66 year old M referred to Physical Therapy by Dr. Ct Murphy MD with a diagnosis of R shoulder pain. Date of Evaluation: 09/23/22 Physical Therapist: Bayron Tim, PT, ATC - Visit Plan Frequency: 1-2x /Week Duration: 2 Weeks Plan: Issue and instruct pt on HEP of R shoulder rot cuff strengthening and scap stab ex's - Subjective Pt reports he fell down his front stairs approximately one month ago while walking his dog, landing on his R shoulder. Pt notes the pain hasn't really improved over this time frame, however, he is able to raise it a little better at this time. Pt is R hand dominant. No past medical Hx of R shoulder pain in the past. Pt reports he has difficulty with driving his car secondary to not being able to shift his gears with R UE. Pt reports sleep difficulty secondary to pain. Pt notes he was only able to sleep for 2 hours last night. Pt reports he had an xray. Pt reports he has RA and is diabetic. Pt reports he has tingling and numbness going down his R UE intermittently to the mid forearm region. Pt reports he is not able to ride his motorcycle right now and has difficulty with bathing secondary to pain. 5/10 pain at rest, 8/10 pain at worst. - Pain R shoulder pain Pain Intensity (Out of 10): 5 Pain Intensity Range: 8 - Objective Neuro: B UE sensation is WNL to light touch. B bicipital reflex= 1/3. Palpation: Pt is sore along the LHB tendon and supraspinatus tendons. No obvious deformity noted at this time. ROM: L shoulder flex= 170, abd= 170, IR WNL , ER= 50; R shoulder flex= 40, abd= 35, IR WNL , ER= 15 degrees. MMT: L shoulder flex= 17, abd= 27, IR= 17, ER= 20 #F; R shoulder flex= 0, abd= 5, IR= 13, ER= 0 #F. Special testing: pos empty can and HK tests - Balance/Special Test Scores Quick DASH Score: 59.0900 - Goals Goal 1:: I with HEP after 1-2 visits Goal Time Frame: 2-4 Weeks - Rehabilitation Potential Physical Therapy Diagnosis: Pt has R shoulder pain, weakness, and limited ROM se condary to R shoulder rot cuff pathology Rehabilitation Potential: Good - Anticipated Interventions Patient/Client Instruction: Educate patient on: Condition, Plan of Care For the Purpose of:: To improve self management Therapeutic Exercise to Include: Strength training, Endurance training, Flexibilty training, Active ROM, Scapular Strength/Stabilization For the Purpose of:: To decrease pain, To increase ROM, To improve muscle performance and motor function Cryotherapy (ice pack, ice massage): Yes For the Purpose of:: To decrease pain Thank you for the opportunity to evaluate your patient. For Medicare and Medicare HMO plans, please review the plan of care and approve it. It will need to be FAXED BACK to us at [phone] for Medicare purposes. For Medicare only, by signing this I certify the plan of care. Please let me know if there are questions or concerns regarding this plan of care. Physician Signature: Date:_
== END 2022-10-03 19:00 | disposition home or self-care (01) ==
LOC: PT 07:00
PROVIDERS: PCP Internal Medicine; Referring Provider Internal Medicine; Visit Provider Internal Medicine
DX: M25.511 Pain in right shoulder (principal)
CPT/HCPCS: 97110; 97161

== ENCOUNTER → 2022-11-07 | Outpatient (CLI) | payer MEDICARE, SELFPAY ==
--- NOTE | 2022-11-07 10:07 | RAD_ITS ---
HISTORY: PAIN. TECHNIQUE: XR Pelvis 1 or 2 Views. COMPARISON: None. FINDINGS: OSSEOUS STRUCTURES: No acute displaced fracture identified. Note that overlapping bowel shadows may obscure osseous detail. Mineralization unremarkable. JOINT SPACES: No dislocation. Mild degenerative changes of the hips. RAD/Pelvis 1 or 2 Views IMPRESSION: No acute displaced fracture or dislocation identified. Electronically Signed: Tracy Beasley MD at 8:45 EDT ,
--- NOTE | 2022-11-07 10:07 | RAD_ITS ---
HISTORY: PAIN. TECHNIQUE: XR Hand Min 3 Views. COMPARISON: None. FINDINGS: BONES : No acute fracture identified. Mineralization unremarkable. JOINTS: No dislocation. Mild degenerative changes with interphalangeal joint space narrowing. SOFT TISSUES: Punctate density in the soft tissues adjacent to the first proximal phalangeal base. RAD/Hand Min 3 Views IMPRESSION: Small foreign body in the thumb. Mild osteoarthritis of the left hand. Electronically Signed: Tracy Beasley MD at 10:16 EDT ,
--- NOTE | 2022-11-07 10:08 | RAD_ITS ---
HISTORY: PAIN. TECHNIQUE: XR Hand Min 3 Views. COMPARISON: None. FINDINGS: BONES : No acute fracture identified. Small degenerative cysts and osteophytes of the metacarpophalangeal joints. JOINTS: No dislocation. Mild joint space narrowing and osteophytes of the distal interphalangeal joints. SOFT TISSUES: Peripheral vascular disease noted. RAD/Hand Min 3 Views IMPRESSION: No acute fracture or dislocation identified . Osteoarthritis of the right hand. Electronically Signed: Tracy Beasley MD at 10:18 EDT ,
[2022-11-07 12:38] LABS: Absolute Lymphocyte Count 2.04 X10^3/uL (0.83-4.51); Basophil# 0.06 X10^3/uL; Basophil% 0.7 % (0-1); Eosinophil# 0.28 X10^3/uL; Eosinophils% 3.1 % (0-5); Hematocrit 40.4 % (40-54); Hemoglobin 14.2 g/dL (13.0-16.5); Lymphocyte # 2.04 X10^3/ul (0.83-4.51); Lymphocyte % 22.4 % (19-41); Mean Corp Hgb Conc 35.1 g/dL (32-36); Mean Corpuscular Hgb 33.6 pg (27.0-32.0); Mean Corpuscular Volume 95.7 fL (80-94); Mean Platelet Vol. 10.8 fl (6.2-12.0); Monocyte# 0.74 X10^3/uL; Monocyte% 8.1 % (0-10); NRBC Flagged by Analyzer 0 % (0-5); Neutrophil # 5.95 X10^3/uL (2.7-7.7); Neutrophil % 65.4 % (47-70); Platelet Count 247 K/mm3 (150-450); RBC Distribution Width CV 12.9 % (11.6-14.6); RBC Distribution Width SD 45.1 fl (35.1-43.9); Red Blood Count 4.22 M/mm3 (4.6-6.2); White Blood Count 9.1 K/mm3 (4.4-11.0)
[2022-11-07 12:47] LABS: Erythrocyte Sedimentation Rate 16 mm/hr (0-20)
[2022-11-07 12:55] LABS: ALB/GLOB Ratio 0.9 RATIO (0.9-2.4); AST(SGOT) 26 U/L (15-37); Alanine Aminotransfer ALT/SGPT 42 U/L (16-61); Albumin, Serum 3.9 g/dL (3.2-5.0); Alkaline Phosphatase 68 U/L (45-117); Anion Gap 7 (5-15); BUN 18 mg/dL (7-18); BUN/Creat Ratio 15.3 RATIO (10-20); CRP < 2.90 mg/L (0.0-3.0); Calcium,Total 9.5 mg/dL (8.5-10.1); Chloride 101 mmol/L (98-107); Creatinine, Serum 1.18 mg/dL (0.70-1.30); EST Glomerular Filtration Rate 66 mL/min (>60); Est Glom Filt Rate - Afr Amer 79 mL/min (>60); Globulin 4.2 g/dL (2.2-4.2); Glucose 254 mg/dL (74-106); Potassium 4.4 mmol/L (3.5-5.1); Protein, Total 8.1 g/dL (6.4-8.2); Sodium Level 133 mmol/L (136-145)
[2022-11-07 13:20] LABS: Hepatitis B Surface Antibody Non-Reactive; Hepatitis B Surface Antigen Non-Reactive (Nonreactive); Hepatitis C Antibody Non-Reactive (Nonreactive)
[2022-11-10 06:06] LABS: CCP IgG Antibodies > 250 units (0-19); QNTFERON TB Mitogen Value > 10.00 IU/mL (.); QNTFERON TB Nil Value 0.13 IU/mL (.); QNTFERON TB1+ Ag Value 0.16 IU/mL (.); QNTFERON TB2+ Ag Value 0.05 IU/mL (.); QNTIFERON TB Positive Criteria Negative (Negative)
[2022-11-10 18:07] LABS: ANTINUCLEAR ANTIBODIES DIRECT Negative (Negative)
== END | disposition home or self-care (01) ==
LOC: MTLAB 10:06
PROVIDERS: PCP Internal Medicine; Referring Provider Internal Medicine Rheumatology; Visit Provider Internal Medicine Rheumatology
DX: M05.79 Rheumatoid arthritis with rheumatoid factor of multiple sites without organ or systems involvement (principal); M19.041 Primary osteoarthritis, right hand; M47.897 Other spondylosis, lumbosacral region
CPT/HCPCS: 36415; 72170; 73130; 80053; 85025; 85652; 86038; 86140; 86200; 86431; 86480; 86706; 86803; 87340

== ENCOUNTER → 2022-11-24 | Outpatient (CLI) | payer MEDICARE, SELFPAY ==
[2022-11-24 10:31] LABS: Microalbumin,Random Urine 43.6 mg/L (NO RANGE EST.); Microalbumin:Creatinine Ratio 39.3 mg/g CRE (<30 mg/g CRE)
[2022-11-24 10:54] LABS: Cholesterol 113 mg/dL (200); High Density Lipoprotein 41 mg/dL; Thyroid Stim Hormone (TSH) 2.84 uIU/mL (0.358-3.74); Triglycerides 131 mg/dL; Very Low Density Lipoprotein 26 mg/dL (5-40)
== END | disposition home or self-care (01) ==
LOC: LAB 08:51
PROVIDERS: PCP Internal Medicine; Referring Provider Nurse Practitioner Family; Visit Provider Nurse Practitioner Family
DX: E11.9 Type 2 diabetes mellitus without complications (principal); I25.10 Atherosclerotic heart disease of native coronary artery without angina pectoris
CPT/HCPCS: 36415; 80061; 82043; 82570; 84443

== ENCOUNTER → 2023-01-27 | Outpatient (CLI) | payer MEDICARE, SELFPAY ==
[2023-01-27 10:03] LABS: Absolute Neutrophil Count 5.3 X10^3/uL (2.0-7.7); Basophil# 0.05 X10^3/uL; Basophil% 0.6 % (0-1); Eosinophil# 0.32 X10^3/uL; Eosinophils% 3.8 % (0-5); Hematocrit 37.8 % (40-54); Hemoglobin 13.6 g/dL (13.0-16.5); Lymphocyte % 23.8 % (19-41); Mean Corpuscular Hgb 34.1 pg (27.0-32.0); Mean Corpuscular Volume 94.7 fL (80-94); Mean Platelet Vol. 10.4 fl (6.2-12.0); Monocyte# 0.76 X10^3/uL; NRBC Flagged by Analyzer 0 % (0-5); Neutrophil # 5.25 X10^3/uL (2.7-7.7); Neutrophil % 62.4 % (47-70); Platelet Count 281 K/mm3 (150-450); RBC Distribution Width CV 13.3 % (11.6-14.6); RBC Distribution Width SD 46.7 fl (35.1-43.9); Red Blood Count 3.99 M/mm3 (4.6-6.2); White Blood Count 8.4 K/mm3 (4.4-11.0)
[2023-01-27 10:25] LABS: AST(SGOT) 29 U/L (15-37); Alanine Aminotransfer ALT/SGPT 64 U/L (16-61); Alkaline Phosphatase 74 U/L (45-117); Anion Gap 4 (5-15); BUN 16 mg/dL (7-18); BUN/Creat Ratio 14.8 RATIO (10-20); Chloride 102 mmol/L (98-107); Creatinine, Serum 1.08 mg/dL (0.70-1.30); EST Glomerular Filtration Rate 73 mL/min (>60); Est Glom Filt Rate - Afr Amer 88 mL/min (>60); Globulin 4.2 g/dL (2.2-4.2); Glucose 170 mg/dL (74-106); Potassium 4.5 mmol/L (3.5-5.1); Protein, Total 8.2 g/dL (6.4-8.2); Sodium Level 136 mmol/L (136-145)
== END | disposition home or self-care (01) ==
LOC: LAB 09:01
PROVIDERS: PCP Internal Medicine; Referring Provider Internal Medicine Rheumatology; Visit Provider Internal Medicine Rheumatology
DX: M05.79 Rheumatoid arthritis with rheumatoid factor of multiple sites without organ or systems involvement (principal); Z79.899 Other long term (current) drug therapy; M19.041 Primary osteoarthritis, right hand
CPT/HCPCS: 36415; 80053; 85025

== ENCOUNTER → 2023-02-12 | Outpatient (CLI) | payer MEDICARE, SELFPAY ==
--- NOTE | 2023-02-12 07:16 | US_ITS ---
STUDY: ABDOMINAL ULTRASOUND - RIGHT UPPER QUADRANT REASON FOR VISIT: Male, 67 years old ELEVATED LIVER ENZYME TECHNIQUE: Ultrasound evaluation of the right upper quadrant was performed with real-time and static cox-scale imaging. TECHNICAL QUALITY: Adequate. COMPARISON: None. FINDINGS: Liver: The liver measures 19.9 cm. There is increased echogenicity consistent with fatty infiltration. The bile ducts are within normal limits. There is hepatic color flow. The direction of portal flow is hepatopetal. There is no demonstrated mass lesion. Gallbladder: Normal distended gallbladder. The gallbladder wall measures 0.3 mm. There is a negative sonographic Morton''s sign. There is no pericholecystic fluid. There is a suggestion of minimal sludge in the gallbladder. Common Bile Duct (C.B.D.): The common bile duct measures 4.3 mm. Pancreas: Normal size of the head, body and tail of the pancreas. There is normal echogenicity of the pancreas. There is no demonstrated pancreatic mass or cyst. Right Kidney: Normal size of the right kidney. The right kidney measures 10.9 x 6.1 x 5.9 cm. Normal renal cortex. The right cortex measures 1.2 cm. There is no demonstrated renal mass or cyst. There is mild right pelviectasis. US/Liver IMPRESSION: Enlarged fatty infiltrated liver. Minimal sludge in the gallbladder. No ultrasound evidence of cholecystitis. Electronically Signed: Suha Up MD at 13:31 EDT ,
== END | disposition home or self-care (01) ==
LOC: US 07:15
PROVIDERS: PCP Internal Medicine; Referring Provider Internal Medicine Rheumatology; Visit Provider Internal Medicine Rheumatology
DX: M19.041 Primary osteoarthritis, right hand (principal); Z79.899 Other long term (current) drug therapy
CPT/HCPCS: 76705

== ENCOUNTER → 2023-03-03 | Outpatient (CLI) | payer MEDICARE, SELFPAY ==
[2023-03-03 12:26] LABS: AST(SGOT) 21 U/L (15-37); Alanine Aminotransfer ALT/SGPT 46 U/L (16-61); Alkaline Phosphatase 70 U/L (45-117); Anion Gap 6 (5-15); BUN 15 mg/dL (7-18); BUN/Creat Ratio 12.1 RATIO (10-20); Calcium,Total 10.1 mg/dL (8.5-10.1); Chloride 101 mmol/L (98-107); Creatinine, Serum 1.24 mg/dL (0.70-1.30); EST Glomerular Filtration Rate 62 mL/min (>60); Est Glom Filt Rate - Afr Amer 75 mL/min (>60); Globulin 4.1 g/dL (2.2-4.2); Glucose 213 mg/dL (74-106); Potassium 3.9 mmol/L (3.5-5.1); Protein, Total 8.1 g/dL (6.4-8.2); Sodium Level 136 mmol/L (136-145)
== END | disposition home or self-care (01) ==
LOC: MTLAB 09:26
PROVIDERS: PCP Internal Medicine; Referring Provider Internal Medicine Rheumatology; Visit Provider Internal Medicine Rheumatology
DX: M05.79 Rheumatoid arthritis with rheumatoid factor of multiple sites without organ or systems involvement (principal); Z79.899 Other long term (current) drug therapy; M19.041 Primary osteoarthritis, right hand
CPT/HCPCS: 36415; 80053

== ENCOUNTER → 2023-05-28 | Outpatient (CLI) | payer MEDICARE, SELFPAY ==
--- OUTSIDE RECORDS SUMMARY | 2023-05-28 09:53 | XMS RPT_ITS | CCD ---
Author Name Unknown Address [address] [place] [address] [address] [place] [address] Organization [facility] Care Team Providers Care Runner Worker Name Role Phone Marin Geiger Primary Care Provider [phone] MARIN GEIGER Primary Care Unavailable MARIN GEIGER Primary Care Unavailable MARIN GEIGER Attending Unavailable MARIN GEIGER Primary Care Unavailable Allergies Allergy Classification Reported Allergen(s) Allergy Type Date of Onset Reaction(s) Facility (1 source) empagliflozin Drug Allergy 11-14-2019 [facility] Work Phone: Medications Current Medications Medication Drug Class(es) Dates Sig (Normalized) Sig (Original) apixaban 5 mg oral tablet (1 source) Factor Xa Inhibitor Start: 06-11-19 21 take 1 tablet by mouth twice daily apixaban (ELIQUIS) 5 MG TABS tablet Take 1 tablet by mouth 2 times daily 180 tablet 1 06/11/2020 Active atorvastatin 40 mg oral tablet (1 source) HMG-CoA Reductase Inhibitor Start: 06-11-19 21 take 1 tablet by mouth once daily atorvastatin (LIPITOR) 40 MG tablet Take 1 tablet by mouth daily 90 tablet 1 06/11/2020 Active 0.5 ml dulaglutide 3 mg/ml auto-injector (1 source) GLP-1 Receptor Agonist Start: 07-30-19 21 Dulaglutide (TRULICITY) 1.5 MG/0.5ML SOPN Inject 1.5 mg into the skin once a week 4 pen 2 07/29/2020 Active flecainide acetate 100 mg oral tablet (1 source) Antiarrhythmic Start: 02-25-20 19 take 1 tablet by mouth twice daily flecainide (TAMBOCOR) 100 MG tablet Take 1 tablet by mouth 2 times daily 180 tablet 1 02/24/2019 Active glimepiride 4 mg oral tablet (1 source) Sulfonylurea Start: 06-11-19 21 take 1 tablet by mouth twice daily glimepiride (AMARYL) 4 MG tablet Take 1 tablet by mouth 2 times daily 180 tablet 1 06/11/2020 Active hydroCHLOROthiazide 25 mg oral tablet (1 source) Thiazide Diuretic Start: 12-15-19 18 take 1 tablet by mouth once daily hydrochlorothiazide (HYDRODIURIL) 25 MG tablet Take 25 mg by mouth daily 0 12/14/2017 Active 24 hr isosorbide mononitrate 30 mg extended release oral tablet (1 source) Nitrate Vasodilator Start: 12-15-19 18 take 1 tablet by mouth once daily isosorbide mononitrate (IMDUR) 30 MG extended release tablet Take 30 mg by mouth daily 0 12/14/2017 Active ammonium lactate 120 mg/ml topical lotion (1 source) Start: 06-11-19 ammonium lactate (LAC-HYDRIN) 12 % lotion Apply topically daily. 1 Bottle 1 06/11/2020 Active losartan potassium 100 mg oral tablet (1 source) Angiotensin 2 Receptor Chuckie Start: 06-11-19 21 take 1 tablet by mouth once daily losartan (COZAAR) 100 MG tablet Take 1 tablet by mouth daily 90 tablet 1 06/11/2020 Active metFORMIN hydrochloride 500 mg oral tablet (1 source) Biguanide Start: 06-11-19 21 metFORMIN (GLUCOPHAGE) 500 MG tablet Indications: 2 tabs q am and 2 q pm Indications: 2 tabs q am and 2 q pm 2 bid 360 tablet 1 06/11/2020 Active metoprolol tartrate 100 mg oral tablet (1 source) beta-Adrenergic Chuckie Start: 06-11-19 21 take 1 tablet by mouth twice daily metoprolol (LOPRESSOR) 100 MG tablet Take 1 tablet by mouth 2 times daily 180 tablet 1 06/11/2020 Active nitroglycerin 0.4 mg sublingual tablet (1 source) Nitrate Vasodilator Start: 12-19-19 18 nitroGLYCERIN (NITROSTAT) 0.[address] 1 tablet under the tongue every 5 minutes as needed for Chest pain up to max of 3 total doses. If no relief after 1 dose, call 911. 25 tablet 3 12/18/2017 Active microencapsulated potassium chloride 10 meq extended release oral tablet (1 source) Start: 12-15-19 18 take 1 tablet by mouth once daily, then take 1 tablet by mouth potassium chloride (KLOR-CON M) 10 MEQ extended release tablet Take 10 mEq by mouth daily 0 12/14/2017 Active triamcinolone acetonide 0.25 mg/ml topical cream (1 source) Corticosteroid Start: 06-11-19 21 triamcinolone (KENALOG) 0.025 % cream Apply topically 2 times daily. 30 g 1 06/11/2020 Active Problems Active Problems Problem Classification Problem Date Documented Date Episodic/Chronic Cardiac dysrhythmias (4 sources) Paroxysmal atrial fibrillation; Translations: [Chronic atrial fibrillation] Onset: 08-07-2015 Resolved: 11-25-2018 05-25-2019 Chronic Coronary atherosclerosis and other heart disease (1 source) Coronary atherosclerosis; Translations: [Coronary artery disease due to lipid rich plaque] Onset: 02-14-2020 02-14-2020 Chronic Diabetes mellitus with complications (3 sources) Mild nonproliferative diabetic retinopathy; Translations: [Type 2 diabetes mellitus with hyperglycemia] Onset: 06-11-2020 06-11-2020 Chronic Diabetes mellitus without complication (1 source) Type 2 diabetes mellitus without complication; Translations: [Type 2 diabetes mellitus without complication] Onset: 08-07-2015 08-07-2015 Chronic Disorders of lipid metabolism (3 sources) Hypercholesterolemia; Translations: [Pure hypercholesterolemia, unspecified] Onset: 08-19-2016 08-19-2016 Chronic Fluid and electrolyte disorders (1 source) Hyponatremia; Translations: [Hyponatremia] Episodic Other aftercare (2 sources) 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; Translations: [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 (HCC)] Onset: 02-17-2022 Episodic Rheumatoid arthritis and related disease (3 sources) Rheumatoid arthritis; Translations: [Rheumatoid arthritis, unspecified] Onset: 08-19-2016 08-19-2016 Chronic Past or Other Problems Problem Classification Problem Date Documented Date Episodic/Chronic Other circulatory disease (1 source) History of cerebrovascular accident; Translations: [History of CVA (cerebrovascular accident)] Onset: 08-07-2015 08-07-2015 Episodic Other connective tissue disease (1 source) Dupuytren's contracture ; Translations: [Dupuytren's contracture of hand] Onset: 02-14-2020 02-14-2020 Episodic Results Test Name Value Interpretation Reference Range Facil ity Encounters Encounter Date Encounter Type Care Provider Facility Start: 06-23-2022 End: 06-23-2022 ambulatory MARIN GEIGER [facility] Start: 06-20-2022 End: 06-20-2022 ambulatory MARIN GEIGER [facility] Start: 06-16-2022 End: 06-16-2022 ambulatory MARIN GEIGER [facility] Start: 08-08-2020 End: 08-08-2020 Subsequent hospital visit by physician Marin Geiger Work Phone: [facility] Radiology Procedures Date Procedure Procedure Detail Performing Clinician Start: 08-08-2020 Radiologic exam ches t 2 views Marin Geiger Work Phone: Start: 06-24-2005 CONVERTED SURGICAL PATHOLOGY Jonathan Dennison Work Phone: Plan of Treatment Date Care Activity Detail Author Start: 01-19-2029 Screening for malignant neoplasm of colon Colon cancer screen colonoscopy [employer] Work Phone: Start: 06-11-2021 Creatinine measurement Creatinine monitoring [facility] Work Phone: Start: 06-11-2021 Lipid panel Lipid screen [facility] Work Phone: Start: 06-11-2021 Potassium monitoring Potassium monitoring [facility] Work Phone: Start: 02-16-2021 Diabetic foot examination Diabetic foot exam [facility] Work Phone: Start: 02-13-2021 Diabetic microalbuminuria test Diabetic microalbuminuria test [facility] Work Phone: Start: 02-07-2021 End: 02-07-2021 Office Visit 02/07/2021 Office Visit Family Medicine Marin Geiger DO [address] [place] [address] [phone] [facility] Start: 10-08-2020 End: 10-08-2020 Office Visit 10/08/2020 Office Visit Family Medicine Fracasso, Marin E, [address] [address] [phone] [facility] Start: 09-08-2020 HbA1c (Bld) [Mass fraction] A1C test (Diabetic or Prediabetic) [facility] Work Phone: Start: 01-03-2020 Influenza vaccination INFLUENZA (#1) [facility] Start: 12-21-2018 Diabetic retinal exam Diabetic retinal exam [facility] Work Phone: Start: 10-21-2018 Annual Wellness Visit (AWV) Annual Wellness Visit (AWV) [facility] Work Phone: Start: 12-29-2010 PROSTATE CANCER SCREENING DISCUSSION PROSTATE CANCER SCREENING DISCUSSION [facility] Start: 12-29-2005 Shingles Vaccine (1 of 2) Shingles Vaccine (1 of 2) [facility] Work Phone: Start: 12-29-2005 SHINGRIX VACCINE (1 of 2) SHINGRIX VACCINE (1 of 2) [facility] Start: 12-29-2005 Tuberculosis screening COLORECTAL CANCER SCREENING,SEE MODIFIER [facility] Start: 12-29-2000 DIABETES SCREEN DIABETES SCREEN [facility] Start: 12-29-1990 LIPID SCREEN LIPID SCREEN [facility] Start: 12-29-1974 DTaP/Tdap/Td vaccine (1 - Tdap) DTaP/Tdap/Td vaccine (1 - Tdap) [facility] Work Phone: Start: 12-29-1974 Urine microalbumin profile DTAP,TDAP,TD (1 - Tdap) [facility] Start: 12-29-1973 HEPATITIS C SCREENING HEPATITIS C SCREENING [facility] Start: 12-29-1973 HIV SCREENING HIV SCREENING [facility] Start: 1971 COVID-19 Vaccine (1) COVID-19 Vaccine (1) [facility] Work Phone: Start: 12-29-1970 HIV screening HIV screen [facility] Work Phone: Start: 1955 Hepatitis C screening Hepatitis C screen [facility] Work Phone: Immunizations Immunization Date Immunization Notes Care Provider Fa cili 02-14-2020 influenza, injectabl e, quadrivalent, preservative free Marin Fracasso [facility] Work Phone: 02-24-2019 influenza, injectabl e, quadrivalent, preservative free Marin EDGARA Work Phone: 02-02-2018 influenza, injectabl e, quadrivalent, preservative free Marin EDGARA Work Phone: 08-19-2016 pneumococcal polysac charide vaccine, 23 valent Marin Geiger [employer] Work Phone: 05-23-2015 influenza virus vacc ine, unspecified formulation Marin Geiger [employer] Work Phone: 02-21-2014 influenza virus vacc ine, unspecified formulation Marin EDGARA Work Phone: 02-21-2014 influenza, injectabl e, quadrivalent, contains preservative Marin KIRK Work Phone: 02-06-2013 influenza, injectabl e, quadrivalent, contains preservative Marin EDGARA Work Phone: Payers Date Payer Category Payer Medicare [id number] Social History Date Type Detail Facility Tobacco smoking stat [facility] Unknown if ever smoked [facility] Sex Assigned At Not on file [facility] Start: 02-14-2020 [facility] [employer] Work Phone: End: 01-24-1985 History of tobacco use Current smoker [employer] Work Phone: End: 01-24-1985 History of tobacco use Cigarette Smoker [employer] Work Phone: Start: 02-14-2020 Cigarettes smoked current (pack per day) - Reported [employer] Work Phone: Start: 02-14-2020 Tobacco use and exposure Never used [employer] Work Phone: Start: 02-14-2020 Alcohol intake 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-dr 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 dealer of alcohol (finding) [facility] Work Phone: Start: 08-26-2018 History SDOH Alcohol Frequency 1 [facility] Work Phone: Start: 08-26-2018 History SDOH Social Connections Phone 5 [facility] Work Phone: Start: 08-26-2018 History SDOH Social Connections Get Together 3 [facility] Work Phone: Start: 08-26-2018 History SDOH Social Connections Scientologist [address] [facility] Work Phone: Start: 08-26-2018 History SDOH Physica l Activity DPW 0 [facility] Work Phone: Start: 08-26-2018 History SDOH Stress 2 [facility] Work Phone: Medical Equipment Procedure Code Equipment Code Equipment Origin al Text Equipment Identifier Dates 1 each by In Vit ro route daily As needed. [id number] Start: 06-11-2020 Clinical Note 06-23-2022 Note Date & Type Note Facility 06-23-2022 Note Referral pended for doctor's sig nature [facility] Assessments Diagnosis Hyponatremia Hyposmolality and/or hyponatremia Advance Directives No Advanced Directives Records FoundDocuments on File Type Date Recorded Patient Shift Nurse Manager Expl anation ACP-Advance Directive ACP-Power of Patch Finisher Summary Purpose Family History No Family History Records FoundNo Family History Records Found Additional Source Comments Source Comments (unrecognize d section and content) In the event this informatio n is protected by the Federal Confidentiality of Alcohol and Drug Abuse Patient Records regulations: The Federal rules restrict any use of the information to criminally investigate or prosecute any alcohol or drug abuse patient.[facility] (unrecognized sect ion and content) No Status Records FoundNo Status Records Found INFORMATION SOURCE (unrecogn ized section and content) DATE CREATED AUTHOR AUTHOR'S ORGANIZ ATION 06/27/2022 [facility] FOR RECORDS PERTAINING TO PATIENTS WHO ARE OR HAVE BEEN ENROLLED IN A CHEMICAL DEPENDENCY/SUBSTANCEABUSE PROGRAM, SOME INFORMATION MAY BE OMITTED. This clinical summary was aggregated from multiple sources. Caution should be exercised in using it in the provision of clinical care. This summary normalizes information from multiple sources, and as a consequence, information in this document may materially change the coding, format and clinical context of patient data. In addition, data may be omitted in some cases. CLINICAL DECISIONS SHOULD BE BASED ON THE PRIMARY CLINICAL RECORDS. [facility] [employer] [facility]. provides no warranty or guarantee of the accuracy or completeness of information in this document.
[2023-05-28 10:36] LABS: Absolute Lymphocyte Count 1.69 X10^3/uL (0.83-4.51); Absolute Neutrophil Count 4.4 X10^3/uL (2.0-7.7); Basophil# 0.03 X10^3/uL; Basophil% 0.4 % (0-1); Eosinophil# 0.34 X10^3/uL; Eosinophils% 4.7 % (0-5); Hematocrit 40.1 % (40-54); Hemoglobin 13.9 g/dL (13.0-16.5); Lymphocyte # 1.69 X10^3/ul (0.83-4.51); Lymphocyte % 23.4 % (19-41); Mean Corp Hgb Conc 34.7 g/dL (32-36); Mean Corpuscular Hgb 33.7 pg (27.0-32.0); Mean Corpuscular Volume 97.3 fL (80-94); Mean Platelet Vol. 10.4 fl (6.2-12.0); Monocyte# 0.76 X10^3/uL; Monocyte% 10.5 % (0-10); NRBC Flagged by Analyzer 0 % (0-5); Neutrophil # 4.37 X10^3/uL (2.7-7.7); Neutrophil % 60.6 % (47-70); Platelet Count 213 K/mm3 (150-450); RBC Distribution Width CV 13.9 % (11.6-14.6); RBC Distribution Width SD 48.6 fl (35.1-43.9); Red Blood Count 4.12 M/mm3 (4.6-6.2); White Blood Count 7.2 K/mm3 (4.4-11.0)
[2023-05-28 11:15] LABS: ALB/GLOB Ratio 0.9 RATIO (0.9-2.4); AST(SGOT) 20 U/L (15-37); Alanine Aminotransfer ALT/SGPT 37 U/L (16-61); Albumin, Serum 3.7 g/dL (3.2-5.0); Alkaline Phosphatase 71 U/L (45-117); Anion Gap 6 (5-15); BUN 16 mg/dL (7-18); BUN/Creat Ratio 15.7 RATIO (10-20); Calcium,Total 9.8 mg/dL (8.5-10.1); Chloride 101 mmol/L (98-107); Creatinine, Serum 1.02 mg/dL (0.70-1.30); EST Glomerular Filtration Rate 77 mL/min (>60); Est Glom Filt Rate - Afr Amer 94 mL/min (>60); Globulin 4.3 g/dL (2.2-4.2); Glucose 173 mg/dL (74-106); Sodium Level 135 mmol/L (136-145)
== END | disposition home or self-care (01) ==
LOC: LAB 09:23
PROVIDERS: PCP Internal Medicine; Referring Provider Internal Medicine Rheumatology; Visit Provider Internal Medicine Rheumatology
DX: Z79.899 Other long term (current) drug therapy (principal); K76.0 Fatty (change of) liver, not elsewhere classified
CPT/HCPCS: 36415; 80053; 85025

== ENCOUNTER → 2023-08-21 | Outpatient (CLI) | payer MEDICARE, SELFPAY ==
[2023-08-21 09:20] LABS: Absolute Lymphocyte Count 1.65 X10^3/uL (0.83-4.51); Absolute Neutrophil Count 4.2 X10^3/uL (2.0-7.7); Basophil# 0.04 X10^3/uL; Basophil% 0.6 % (0-1); Eosinophil# 0.21 X10^3/uL; Hematocrit 37.6 % (40-54); Hemoglobin 13.3 g/dL (13.0-16.5); Lymphocyte # 1.65 X10^3/ul (0.83-4.51); Lymphocyte % 23.8 % (19-41); Mean Corp Hgb Conc 35.4 g/dL (32-36); Mean Corpuscular Hgb 35.3 pg (27.0-32.0); Mean Corpuscular Volume 99.7 fL (80-94); Mean Platelet Vol. 10.1 fl (6.2-12.0); Monocyte# 0.75 X10^3/uL; Monocyte% 10.8 % (0-10); NRBC Flagged by Analyzer 0 % (0-5); Neutrophil # 4.23 X10^3/uL (2.7-7.7); Neutrophil % 61.2 % (47-70); Platelet Count 224 K/mm3 (150-450); RBC Distribution Width SD 50.7 fl (35.1-43.9); Red Blood Count 3.77 M/mm3 (4.6-6.2); White Blood Count 6.9 K/mm3 (4.4-11.0)
[2023-08-21 10:20] LABS: AST(SGOT) 20 U/L (15-37); Alanine Aminotransfer ALT/SGPT 29 U/L (16-61); Albumin, Serum 3.8 g/dL (3.2-5.0); Alkaline Phosphatase 65 U/L (45-117); Anion Gap 10 (5-15); BUN 24 mg/dL (7-18); BUN/Creat Ratio 21.4 RATIO (10-20); Calcium,Total 9.5 mg/dL (8.5-10.1); Chloride 101 mmol/L (98-107); Creatinine, Serum 1.12 mg/dL (0.70-1.30); EST Glomerular Filtration Rate 69 mL/min (>60); Est Glom Filt Rate - Afr Amer 84 mL/min (>60); Globulin 3.7 g/dL (2.2-4.2); Glucose 195 mg/dL (74-106); Potassium 4.9 mmol/L (3.5-5.1); Protein, Total 7.5 g/dL (6.4-8.2); Sodium Level 135 mmol/L (136-145)
== END | disposition home or self-care (01) ==
LOC: LAB 08:42
PROVIDERS: PCP Internal Medicine; Referring Provider Internal Medicine Rheumatology; Visit Provider Internal Medicine Rheumatology
DX: M05.79 Rheumatoid arthritis with rheumatoid factor of multiple sites without organ or systems involvement (principal); M19.041 Primary osteoarthritis, right hand; Z79.899 Other long term (current) drug therapy
CPT/HCPCS: 36415; 80053; 85025

== ENCOUNTER → 2023-08-25 | Outpatient (CLI) | payer MEDICARE, SELFPAY ==
[2023-08-25 09:31] LABS: AST(SGOT) 24 U/L (15-37); Alanine Aminotransfer ALT/SGPT 35 U/L (16-61); Albumin, Serum 3.6 g/dL (3.2-5.0); Alkaline Phosphatase 59 U/L (45-117); Bilirubin, Direct 0.24 mg/dL (0.00-0.30); Cholesterol 98 mg/dL (200); Globulin 3.5 g/dL (2.2-4.2); High Density Lipoprotein 48 mg/dL; Protein, Total 7.1 g/dL (6.4-8.2); Triglycerides 87 mg/dL; Very Low Density Lipoprotein 17 mg/dL (5-40)
== END | disposition home or self-care (01) ==
PROVIDERS: PCP Internal Medicine; Referring Provider Nurse Practitioner Family; Visit Provider Nurse Practitioner Family
DX: I25.10 Atherosclerotic heart disease of native coronary artery without angina pectoris (principal); E78.00 Pure hypercholesterolemia, unspecified
CPT/HCPCS: 36415; 80061; 80076

== ENCOUNTER → 2023-10-23 | Outpatient (CLI) | payer MEDICARE, SELFPAY ==
[2023-10-23 10:17] LABS: Absolute Lymphocyte Count 2.45 X10^3/uL (0.83-4.51); Absolute Neutrophil Count 3.6 X10^3/uL (2.0-7.7); Basophil# 0.06 X10^3/uL; Basophil% 0.8 % (0-1); Eosinophil# 0.24 X10^3/uL; Eosinophils% 3.4 % (0-5); Hematocrit 35.7 % (40-54); Hemoglobin 12.7 g/dL (13.0-16.5); Lymphocyte # 2.45 X10^3/ul (0.83-4.51); Lymphocyte % 34.3 % (19-41); Mean Corp Hgb Conc 35.6 g/dL (32-36); Mean Corpuscular Hgb 35.4 pg (27.0-32.0); Mean Corpuscular Volume 99.4 fL (80-94); Mean Platelet Vol. 10.6 fl (6.2-12.0); Monocyte# 0.78 X10^3/uL; Monocyte% 10.9 % (0-10); NRBC Flagged by Analyzer 0 % (0-5); Neutrophil # 3.59 X10^3/uL (2.7-7.7); Neutrophil % 50.2 % (47-70); Platelet Count 252 K/mm3 (150-450); RBC Distribution Width CV 13.1 % (11.6-14.6); RBC Distribution Width SD 47.5 fl (35.1-43.9); Red Blood Count 3.59 M/mm3 (4.6-6.2); White Blood Count 7.2 K/mm3 (4.4-11.0)
[2023-10-23 10:49] LABS: AST(SGOT) 16 U/L (15-37); Alanine Aminotransfer ALT/SGPT 29 U/L (16-61); Albumin, Serum 3.7 g/dL (3.2-5.0); Alkaline Phosphatase 81 U/L (45-117); Anion Gap 9 (5-15); BUN 21 mg/dL (7-18); BUN/Creat Ratio 19.6 RATIO (10-20); Calcium,Total 10.5 mg/dL (8.5-10.1); Chloride 98 mmol/L (98-107); Creatinine, Serum 1.07 mg/dL (0.70-1.30); EST Glomerular Filtration Rate 73 mL/min (>60); Est Glom Filt Rate - Afr Amer 88 mL/min (>60); Globulin 3.8 g/dL (2.2-4.2); Glucose 158 mg/dL (74-106); Potassium 4.3 mmol/L (3.5-5.1); Protein, Total 7.5 g/dL (6.4-8.2); Sodium Level 135 mmol/L (136-145)
== END | disposition home or self-care (01) ==
LOC: LAB 09:07
PROVIDERS: PCP Internal Medicine; Referring Provider Internal Medicine Rheumatology; Visit Provider Internal Medicine Rheumatology
DX: M05.79 Rheumatoid arthritis with rheumatoid factor of multiple sites without organ or systems involvement (principal); Z79.899 Other long term (current) drug therapy
CPT/HCPCS: 36415; 80053; 85025

== ENCOUNTER → 2023-11-16 | Outpatient (CLI) | payer MEDICARE, SELFPAY ==
[2023-11-16 09:16] LABS: Absolute Lymphocyte Count 1.26 X10^3/uL (0.83-4.51); Absolute Neutrophil Count 4.2 X10^3/uL (2.0-7.7); Basophil# 0.03 X10^3/uL; Basophil% 0.5 % (0-1); Eosinophil# 0.12 X10^3/uL; Hematocrit 35.2 % (40-54); Hemoglobin 12.6 g/dL (13.0-16.5); Lymphocyte # 1.26 X10^3/ul (0.83-4.51); Lymphocyte % 21.3 % (19-41); Mean Corp Hgb Conc 35.8 g/dL (32-36); Mean Corpuscular Hgb 36.1 pg (27.0-32.0); Mean Corpuscular Volume 100.9 fL (80-94); Mean Platelet Vol. 9.4 fl (6.2-12.0); Monocyte# 0.32 X10^3/uL; Monocyte% 5.4 % (0-10); NRBC Flagged by Analyzer 0 % (0-5); Neutrophil # 4.16 X10^3/uL (2.7-7.7); Neutrophil % 70.5 % (47-70); Platelet Count 211 K/mm3 (150-450); RBC Distribution Width SD 51.2 fl (35.1-43.9); Red Blood Count 3.49 M/mm3 (4.6-6.2); White Blood Count 5.9 K/mm3 (4.4-11.0)
[2023-11-16 09:41] LABS: PTHIN 36.9 pg/mL (18.4-80.1)
[2023-11-16 09:48] LABS: Vitamin D,25 Hydroxy 36.7 ng/mL
[2023-11-16 10:31] LABS: ALB/GLOB Ratio 1.1 RATIO (0.9-2.4); AST(SGOT) 27 U/L (15-37); Alanine Aminotransfer ALT/SGPT 38 U/L (16-61); Albumin, Serum 3.6 g/dL (3.2-5.0); Alkaline Phosphatase 60 U/L (45-117); Anion Gap 7 (5-15); BUN 13 mg/dL (7-18); BUN/Creat Ratio 12.7 RATIO (10-20); Calcium,Total 9.3 mg/dL (8.5-10.1); Chloride 100 mmol/L (98-107); Creatinine, Serum 1.02 mg/dL (0.70-1.30); EST Glomerular Filtration Rate 77 mL/min (>60); Est Glom Filt Rate - Afr Amer 93 mL/min (>60); Globulin 3.4 g/dL (2.2-4.2); Glucose 204 mg/dL (74-106); Potassium 4.3 mmol/L (3.5-5.1); Sodium Level 135 mmol/L (136-145)
[2023-11-16 18:23] LABS: Hemoglobin A1c 7.4 % (3.8-5.6)
== END | disposition home or self-care (01) ==
LOC: LAB 08:44
PROVIDERS: PCP Internal Medicine; Referring Provider Nurse Practitioner Family; Visit Provider Nurse Practitioner Family
DX: E11.9 Type 2 diabetes mellitus without complications (principal); E83.52 Hypercalcemia
CPT/HCPCS: 36415; 80053; 82306; 83036; 83970; 85025

== ENCOUNTER 2023-12-08 05:44 | Day surgery (SDC) | payer MEDICARE, SELFPAY ==
[2023-12-08] VITALS (9 sets, daily range): BP systolic 101–142; BP diastolic 58–80; PULSE 58–65; RESP 16; TEMP 36–36.3; O2SAT 95–100; BMI 29.6
[2023-12-08] MEDS: Lactated Ringers 1,000 ML 15 ML IV (06:18)
[2023-12-08 06:38] LABS: Bedside Glucose 232 mg/dL (74-106)
--- NOTE | 2023-12-08 07:00 | COLBX_PTH ---
PATIENT: BARRERA ZHU LOC: EN U#:[id number] AGE/SX: 67/M ROOM: RE12/08/[address]: Dr. Wade Looney DO : 1955 BED: DIS: 12/08/2023 SPEC #: [id number] RECD: 12/08/23 09:22 STATUS: SANDRA RHEA #: [id number] RAMONA: 12/08/23 07:[address]: Wade Looney DEPT: SURGICAL PATHOLOGY RECD BY: Ludy Arboleda ENTERED: 12/08/23 10:58 SP TYPE: COLON BX HUMPHREY DR: Dr. Ct Murphy MD Tissues: A - Sigmoid colon biopsy B - SPLENIC FLEXURE Procedures: Surgery Specimen Level IV HEADER OPERATION: Colonoscopy with polypectomy PRE-OP DIAGNOSIS: Screening TISSUE SUBMITTED: A- Colon polyp sigmoid cold snare x3, B- Splenic flexure polyp MICROSCOPIC DIAGNOSIS A. Sigmoid colon polyp, biopsy: Fragments of tubulovillous adenoma. B. Colonic polyp at splenic flexure, biopsy: Fragments of tubular adenoma. / 12/09/2023 MICROSCOPIC DESCRIPTION Slides are reviewed. GROSS DESCRIPTION A. Received in fixative is one container labeled with the patient's name and designated Colon polyp sigmoid. The specimen consists of multiple irregular fragments of light leonardo soft tissue that in aggregate measure 2.0 x 0.7 x 0.3 cm. The specimen is totally submitted in one cassette. B. Received in fixative is one container labeled with the patient's name and designated Splenic flexure polyp x3. The specimen consists of multiple irregular fragments of light leonardo soft tissue that in aggregate measure 2.5 x 0.6 x 0.1 cm. The specimen is totally submitted in one cassette. / 12/08/2023 TC:5 CPT:[id number]
--- NOTE | 2023-12-08 07:03 | HP.PCM_ITS ---
[facility] - General General Date of Admission: 12/08/23 Date of Service: 12/08/23 Chief Complaint: Surveillance colonoscopy HPI Narrative BARRERA ZHU, is a 67 M who presents today for screening colonoscopy. He has a past medical history of atrial fibrillation on Eliquis, hypertension, rheumatoid arthritis, diabetes who presents today for screening colonoscopy. He does not have any abdominal pain. Is not any cramping. He denies any chest pain or shortness of breath. He had a colonoscopy last year and had 10 polyps that were removed and the prep was marked as fair. FOR[facility]LY [facility], LATER [facility] Medical History Cardiology follow-up encounter Pedal edema Macular edema of left eye Non-proliferative diabetic retinopathy, both eyes Hypertension Diabetes Arthritis Lower extremity edema Alcohol use Insulin dependent diabetes mellitus High cholesterol Dietary restriction Diarrhea Former smoker History of stress test History of pain when walking History of edema Obesity History of left heart catheterization (LHC) (~12/14/17) Paroxysmal atrial flutter Paroxysmal atrial fibrillation Pure hypercholesterolemia Essential hypertension Atherosclerosis of [place] coronary artery of [place] heart without angina pectoris Rheumatoid arthritis Chest pain Acute CVA (cerebrovascular accident) Rheumatoid arthritis Type II diabetes mellitus Home Medications ?Medication ?Instructions ?Recorded ?Last Taken ?Type nitroglycerin 0.4 mg sublingual 0.4 mg sublingual Q5M PRN Chest 12/14/17 Unknown Rx tablet Pain #20 tabs ammonium lactate 5 % lotion 1 applic topical DAILY 06/13/20 Unknown History triamcinolone acetonide 0.025 % 1 applic topical BID 06/13/20 Unknown History topical cream pen needle, diabetic 32 gauge x #200 ea 07/28/22 Unknown Rx (BD Ultra-Fine Vanessa Pen Needle) hydrochlorothiazide 25 mg tablet 25 mg PO DAILY #30 tabs 01/01/23 Unknown Rx atorvastatin 40 mg tablet 40 mg PO QHS #90 tabs 07/03/23 Unknown Rx isosorbide mononitrate 30 mg 30 mg PO DAILY #90 tabs 07/03/23 12/08/23 Rx tablet,extended release 24 hr metoprolol tartrate 100 mg tablet 100 mg PO BID #180 tabs 07/03/23 12/08/23 Rx folic acid 1 mg tablet 1 mg PO BID 07/20/23 Unknown History tramadol 50 mg tablet 50 mg PO TID PRN pain 07/20/23 Unknown History losartan 100 mg tablet 100 mg PO DAILY blood pressure #90 07/27/23 Unknown Rx tabs metformin 500 mg tablet 1,000 mg (2 x 500 mg) PO BIDCM 08/05/23 Unknown Rx #360 tabs methotrexate sodium 2.5 mg tablet 17.5 mg PO QWEEK 11/16/23 Unknown History semaglutide 1 mg/dose (4 mg/3 mL) 1 mg (0.75 mL) subcut QWEEK #3 mL 11/16/23 11/16/23 Rx subcutaneous pen injector (Ozempic) apixaban 5 mg tablet 5 mg PO BID 11/17/23 12/04/23 History Allergy/AdvReac Type Severity Reaction Status Date / Time sitagliptin (From Januvia) Allergy Intermediate Itching Verified 12/08/23 06:06 empagliflozin (From AdvReac Severe Verified 12/08/23 06:06 Jardiance) pain in perirectal region, HIGH Cholesterol Family History Mother Pancreatic cancer Father Heart disease Grandfather Prostate cancer Sister Breast cancer Surgical History Hx of colonoscopy H/O cataract extraction Hx of eye surgery History of cardiac catheterization History of colonoscopy History of hernia repair Social History household members: spouse 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 [employer] Smoking Status: Former smoker quit date: 05/04/84 pack-years: 5 how long ago did patient quit smokin years ago alcohol intake: current alcohol intake frequency: 3 or more drinks per day substance use type: does not use caffeine: No what type of physical activity do you participate in: walking do you feel safe at home: Yes ROS Review of Systems ROS Unobtainable: other Constitutional Constitutional: Denies fatigue, fever(s), poor appetite, weight gain or weight loss ENT HEENT: Denies mouth lesions Cardiovascular Cardiovascular: Denies abdominal bloating, abdominal edema or abdominal pain Respiratory/Chest Respiratory/Chest: Denies change in mental status, change in phlegm color, chest congestion or chest tightness Gastrointestinal Gastrointestinal: Denies belching, bloating, change in bowel habits, change in stool character, chewing difficulty, coffee ground emesis, constipation, cramping, diarrhea, dyspepsia, dysphagia, early satiety, excessive flatus, fecal incontinence, heartburn, hematemesis, hematochezia, hemorrhoids, loose stools, melena, nausea, odynophagia, rectal bleeding, tenesmus, vomiting or weight changes Genitourinary Genitourinary: Denies abdominal discomfort, burning urination or itching Musculoskeletal Musculoskeletal: Reports as per HPI; Denies muscle weakness or myalgias Integumentary Integumentary: Denies jaundice Neurologic Neurologic: Denies lack of coordination or weakness Psychiatric Psychiatric: Denies confusion, depression, memory loss, mood swings, paranoia or suicidal ideation Endocrine Endocrinology: Denies systems reviewed and no addt'l complaints, except as documented Hematologic/Lymphatic Hematologic/Lymphatic: Denies anemia, easy bleeding, easy bruising or lymphadenopathy Allergic/Immunologic Allergic/Immunologic: Denies systems reviewed and no addt'l complaints, except as documented Vital Signs Vital Signs Vital Signs: 12/08/23 06:08 12/08/23 06:08 Temperature 97.3 F L Temperature Source Temporal Pulse Rate 65 Respiratory Rate 16 Respiratory Pattern Normal Blood Pressure 142/71 H Blood Pressure Mean 94 Blood Pressure Source Monitor Blood Pressure Position Semi-Fowlers Blood Pressure Location Right Arm Pulse Ox 100 Oxygen Delivery Method Room Air Weight Weight: 206 lb 9.17 oz Body Mass Index (BMI) 29.6 Physical Exam Const alert General Appearance: cooperative Orientation / Consciousness: oriented to person HEENT hearing grossly normal bilaterally Head and Scalp: normal to inspection Face and Sinus: face symmetric Nose: external nose normal Mouth: oral and palatal mucosa normal Eyes conjunctivae normal General Eye: normal appearance of both eyes Neck full ROM General: normal visual inspection Lymph Lymphatic: no lymphadenopathy noted Chest inspection of chest normal and palpation of chest normal Chest: symmetrical chest wall rise Resp normal respiratory effort Effort and Inspection: able to speak in complete sentences Cardio regular rate GI non-distended Percussion: normal to percussion Rectal Exam: deferred Neuro Speech: speech normal Gait (Neuro): normal gait Results Lab / Micro Data Labs: Laboratory Results - last 24 hr 12/08/23 06:02: POC Glucose 232 H Assessment & Plan Assessment/Plan (1) Encounter for screening for malignant neoplasm of colon: PLAN: He was explained alternatives, risk, benefits including any, infection, sepsis, perforation, need for emergent urgent . He will plan ASA of 3.
--- NOTE | 2023-12-08 07:13 | PRE.ANES_ITS ---
ASA Classification* ASA Classification ASA Classification: 3 Assessment & Plan Anesthesia* Anesthesia Assessment Anesthesia Assessment: Discussed sedation and/or anesthesia options, risks, benefits, and alternatives with patient/parents/legal guardian/POA. Questions invited. The patient/parents/legal guardian/POA seems to understand and agrees to proceed with anesthesia plan. Reviewed the physical assessment, medical history, allergy history and patient home medications list prior to surgery/procedure/anesthetic and documented any changes. Performed airway and anesthesia risk assessments. Anesthesia Type Anesthesia Type: MAC (*see written preanesthesia record for full assessment) Anesthesia Focused Assessment* Temperature: 97.3 F Pulse Rate: 65 Blood Pressure: 142/71 Respiratory Rate: 16 Pulse Ox: 100 Airway Assessment Mouth opens: >3 cm Mallampati Score: II Focused Labs Anesthesia Preop lab: CBC WBC 5.9 K/mm3 (4.4-11.0) 11/16/23 08:55 RBC 3.49 M/mm3 (4.6-6.2) L 11/16/23 08:55 Hgb 12.6 g/dL (13.0-16.5) L 11/16/23 08:55 Hct 35.2 % (40-54) L 11/16/23 08:55 Plt Count 211 K/mm3 (150-450) 11/16/23 08:55 CHEMISTRY Potassium 4.3 mmol/L (3.5-5.1) 11/16/23 08:55 Sodium 135 mmol/L (136-145) L 11/16/23 08:55 BUN 13 mg/dL (7-18) 11/16/23 08:55 Creatinine 1.02 mg/dL (0.70-1.30) 11/16/23 08:55 Glucose 204 mg/dL (74-106) H 11/16/23 08:55 POC Glucose 232 mg/dL (74-106) H 12/08/23 06:02 TSH 2.84 uIU/mL (0.358-3.74) 11/24/22 08:52 COAG PT 15.0 SECONDS (11.7-14.9) H 12/14/17 05:15 Pre-Assessment Diagnosis/Proposed Procedure Planned Operative Procedure(s): COLONOSCOPY Anesthesia History 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 When Was Last Pacemaker Check QUESTION #4 FULL TEXT: You/Your Family Experience fever (hyperthermia) with Anesthesia Last Oral Intake Last Oral intake: Last Oral Intake NPO since 23:00 12/08/23 06:08 Meds taken in AM with sips of Yes 12/08/23 06:08 water? Meds patient instructed to see med list 12/08/23 06:08 take am of surgery PONV PONV - electrical line mechanic: PONV - electrical line mechanic Female Yes 11/17/23 10:46 HX of Motion Sickness No 11/17/23 10:46 HX of N/V After Surgery No 11/17/23 10:46 Non-Smoker Yes 11/17/23 10:46 Duration of Surgery greater No 11/17/23 10:46 than 60 minutes Number of Risk Factors 2 11/17/23 10:46 PONV Score Moderate Risk 11/17/23 10:46 Height & Weight Height & Weight: Anesthesia: Height & Weight Height 5 ft 10 in 12/08/23 06:08 Weight: 93.7 kg 12/08/23 06:08 Body Mass Index (BMI) 29.6 12/08/23 06:08 Respiratory Assessment Respiratory Assessment - electrical line mechanic: Respiratory Tract Infection Hx - electrical line mechanic Hx Respiratory Tract Infection No 11/17/23 10:46 STOP Sleep Apnea STOP Sleep Apnea - electrical line mechanic: STOP Sleep Apnea - electrical line mechanic Hx Hypertension Yes: CONTROLLED WITH MEDS 11/17/23 10:46 Hx Sleep Apnea No 11/17/23 10:46 CPAP BIPAP Do you snore loudly (louder No 11/17/23 10:46 than talking or can be heard Do you often feel tired/ No 11/17/23 10:46 fatigued/ sleepy during daytime? Has anyone observed you stop No 11/17/23 10:46 breathing during sleep? STOP Results Negative 11/17/23 10:46 QUESTION #5 FULL TEXT : Do you snore loudly (louder than talking or can be heard through closed doors)? 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 Specify any problems Hx of Preganancy in last 3 N/A 11/17/23 10:46 Months Nurse Filling Out Transfusion VCHRISTIN 11/17/23 10:46 & Questions: Date: 11/17/23 11/17/23 10:46 Time: 10:47 11/17/23 10:46 Patient unable to answer at this time (ie. confused, unrespo /Reproduction History /Reproductive History - electrical line mechanic: /Reproductive Hx- electrical line mechanic Hx Now Gestational Age (in weeks): EDC: Hx Hx Para Hx Section SAB No 11/17/23 10:46 Active Medications Active Medications: Current Medications Generic Name Dose Route Start Last Admin Trade Name Freq PRN Reason Stop Dose Admin Lactated Ringer's 1,000 mls @ 15 mls/hr 12/08/23 06:30 12/08/23 06:18 IV 15 mls/hr .Q48H TERESA Administration PFSH Medical History Cardiology follow-up encounter Pedal edema Macular edema of left eye Non-proliferative diabetic retinopathy, both eyes Hypertension Diabetes Arthritis Lower extremity edema Alcohol use Insulin dependent diabetes mellitus High cholesterol Dietary restriction Diarrhea Former smoker History of stress test History of pain when walking History of edema Obesity History of left heart catheterization (LHC) (~12/14/17) Paroxysmal atrial flutter Paroxysmal atrial fibrillation Pure hypercholesterolemia Essential hypertension Atherosclerosis of [place] coronary artery of [place] heart without angina pectoris Rheumatoid arthritis Chest pain Acute CVA (cerebrovascular accident) Rheumatoid arthritis Type II diabetes mellitus Home Medications ?Medication ?Instructions ?Recorded ?Last Taken ?Type nitroglycerin 0.4 mg sublingual 0.4 mg sublingual Q5M PRN Chest 12/14/17 Unknown Rx tablet Pain #20 tabs ammonium lactate 5 % lotion 1 applic topical DAILY 06/13/20 Unknown History triamcinolone acetonide 0.025 % 1 applic topical BID 06/13/20 Unknown History topical cream pen needle, diabetic 32 gauge x #200 ea 07/28/22 Unknown Rx (BD Ultra-Fine Vanessa Pen Needle) hydrochlorothiazide 25 mg tablet 25 mg PO DAILY #30 tabs 01/01/23 Unknown Rx atorvastatin 40 mg tablet 40 mg PO QHS #90 tabs 07/03/23 Unknown Rx isosorbide mononitrate 30 mg 30 mg PO DAILY #90 tabs 07/03/23 12/08/23 Rx tablet,extended release 24 hr metoprolol tartrate 100 mg tablet 100 mg PO BID #180 tabs 07/03/23 12/08/23 Rx folic acid 1 mg tablet 1 mg PO BID 07/20/23 Unknown History tramadol 50 mg tablet 50 mg PO TID PRN pain 07/20/23 Unknown History losartan 100 mg tablet 100 mg PO DAILY blood pressure #90 07/27/23 Unknown Rx tabs metformin 500 mg tablet 1,000 mg (2 x 500 mg) PO BIDCM 08/05/23 Unknown Rx #360 tabs methotrexate sodium 2.5 mg tablet 17.5 mg PO QWEEK 11/16/23 Unknown History semaglutide 1 mg/dose (4 mg/3 mL) 1 mg (0.75 mL) subcut QWEEK #3 mL 11/16/23 11/16/23 Rx subcutaneous pen injector (Ozempic) apixaban 5 mg tablet 5 mg PO BID 11/17/23 12/04/23 History Allergy/AdvReac Type Severity Reaction Status Date / Time sitagliptin (From Januvia) Allergy Intermediate Itching Verified 12/08/23 06:06 empagliflozin (From AdvReac Severe Verified 12/08/23 06:06 Jardiance) pain in perirectal region, HIGH Cholesterol Family History Mother Pancreatic cancer Father Heart disease Grandfather Prostate cancer Sister Breast cancer Surgical History Hx of colonoscopy H/O cataract extraction Hx of eye surgery History of cardiac catheterization History of colonoscopy History of hernia repair Social History household members: spouse 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
--- NOTE | 2023-12-08 07:34 | OP.CCLET_ITS ---
12/08/2023 Ct Murphy Md Re : Colonoscopy procedure for Az Hudson Dear Katherine This procedure was performed on Friday, December 08, 2023. My impressions and recommendations are as follows: Impressions : - Eight 1 to 2 mm polyps in the sigmoid colon, at the splenic flexure and in the transverse colon, removed with a cold snare. Resected and retrieved. - Diverticulosis in the recto-sigmoid colon and in the sigmoid colon. - Rectal prolapse. Recommendations : - Await pathology results. - Repeat colonoscopy in 1 year for surveillance. - Continue present medications. My findings are described in the full procedure note, which is enclosed. If I can be of further assistance, please feel free to contact me at . Sincerely, Wade Looney, 12/08/2023 7:33:26 AM This report has been signed electronically.
--- NOTE | 2023-12-08 07:34 | OP.COLON_ITS ---
Patient Name: Az Hudson Procedure Date: 12/08/2023 7:01 AM Date of : 1955 Age: 67 Procedure: Colonoscopy Indications: High risk colon cancer surveillance: Personal history of colonic polyps Providers: Wade Looney DO Referring MD: Ct Murphy Md Medicines: Monitored Anesthesia Care Patient Profile: This is a 67 year old male. Refer to note in patient chart for documentation of history and physical. Last Colonoscopy: 1 year ago. Complications: No immediate complications. Procedure: Pre-Anesthesia Assessment: - Prior to the procedure, a History and Physical was performed, and patient medications and allergies were reviewed. The risks and benefits of the procedure and the sedation options and risks were discussed with the patient. All questions were answered and informed consent was obtained. Patient identification and proposed procedure were verified by the physician in the pre-procedure area. Mental Status Examination: alert and oriented. Airway Examination: normal oropharyngeal airway and neck mobility. Respiratory Examination: clear to auscultation. CV Examination: normal. Prophylactic Antibiotics: The patient does not require prophylactic antibiotics. Prior Anticoagulants: The patient has taken no anticoagulant or antiplatelet agents. After reviewing the risks and benefits, the patient was deemed in satisfactory condition to undergo the procedure. The anesthesia plan was to use monitored anesthesia care (MAC). Immediately prior to administration of medications, the patient was re-assessed for adequacy to receive sedatives. The heart rate, respiratory rate, oxygen saturations, blood pressure, adequacy of pulmonary ventilation, and response to care were monitored throughout the procedure. The physical status of the patient was re-assessed after the procedure. After I obtained informed consent, the scope was passed under direct vision. Throughout the procedure, the patient's blood pressure, pulse, and oxygen saturations were monitored continuously. The adult colonoscope was introduced through the anus and advanced to the cecum, identified by appendiceal orifice and ileocecal valve. The colonoscopy was performed without difficulty. The patient tolerated the procedure well. The quality of the bowel preparation was adequate. The ileocecal valve, appendiceal orifice, and rectum were photographed. Scope In: 7:11:29 AM Scope Withdrawal Time 0 hours 11 minutes 39 seconds Scope Out: 7:27:47 AM Total Procedure Duration Time 0 hours 16 minutes 18 seconds Findings: The perianal and digital rectal examinations were normal. Eight sessile polyps were found in the sigmoid colon, splenic flexure and transverse colon. The polyps were 1 to 2 mm in size. These polyps were removed with a cold snare. Resection and retrieval were complete. Verification of patient identification for the specimen was done. A few small-mouthed diverticula were found in the recto-sigmoid colon and sigmoid colon. Mild rectal prolapse was present. There was a medium-sized lipoma, in the sigmoid colon. Impression: - Eight 1 to 2 mm polyps in the sigmoid colon, at the splenic flexure and in the transverse colon, removed with a cold snare. Resected and retrieved. - Diverticulosis in the recto-sigmoid colon and in the sigmoid colon. - Rectal prolapse. Recommendation: - Await pathology results. - Repeat colonoscopy in 1 year for surveillance. - Continue present medications. Procedure Code(s): --- Professional --- 64544, Colonoscopy, flexible; with removal of tumor(s), polyp(s), or other lesion(s) by snare technique CPT copyright 2021 [employer]. All rights reserved. The codes documented in this report are preliminary and upon auditing coder review may be revised to meet current compliance requirements. Wade Looney DO 12/08/2023 7:33:26 AM This report has been signed electronically. Number of Addenda: 0 Note Initiated On: 12/08/2023 7:01 AM
--- NOTE | 2023-12-08 07:36 | PCM.POST.ANE ---
Anesthesia: Postop Eval I Current Vital Signs Temperature: 97 F Pulse Rate: 59 Blood Pressure: 101/60 Respiratory Rate: 16 Pulse Ox: 96 Oxygen Delivery Method: Room Air Assessment Airway patent: Yes Spontaneous unlabored respirations: Yes Mental status: Asleep nausea: No Vomiting: No Anesthesia Complication: No Fluid Hydration Crystalloid volume administer (ml): 800 Total IV fluid infused: 800 Progress Note Anesthesia document: Postop Eval 1 completed: Yes
--- NOTE | 2023-12-08 07:50 | PCM.POSTANE2 ---
Anesthesia Postop Eval I Sum Postop Eval Completion status Anesthesia document: Postop Eval 1 completed: Yes Anesthesia Postop Eval I Summary Anesthesia Postop Eval I Summary: Anesthesia Postop Eval I: Assessment Summary Airway patent Yes 12/08/23 07:38 [email or web address] Spontaneous unlabored Yes 12/08/23 07:38 [email or web address] respirations Mental status Asleep 12/08/23 07:38 [email or web address] nausea No 12/08/23 07:38 [email or web address] Vomiting No 12/08/23 07:38 [email or web address] Anesthesia Postop Eval I: Fluid Summary Crystalloid volume administer 800 12/08/23 07:38 [email or web address] (ml) Colloids volume administered ( ml) Blood Product volume administered (ml) Total IV fluid infused 800 12/08/23 07:38 [email or web address] Anesthesia Postop Eval I: Summary Notes Anesthesia Complication No 12/08/23 07:38 [email or web address] Anesthesia Complication Comment: Post-operative progress note Anesthesia: Postop Eval II Evaluation Mental status: Awake Pain Level: 0 nausea: No Vomiting: No
== END 2023-12-08 08:08 | disposition home or self-care (01) ==
LOC: EN 05:44 → AC 05:45
PROVIDERS: PCP Internal Medicine; Referring Provider Internal Medicine; Visit Provider Internal Medicine Gastroenterology
PROC: 0DJD8ZZ Inspection of Lower Intestinal Tract, Via Natural or Artificial Opening Endoscopic (ICD-10-PCS; CPT 45378; principal; 2023-12-08 06:55)
DX: Z12.11 Encounter for screening for malignant neoplasm of colon (principal); I48.0 Paroxysmal atrial fibrillation; E11.9 Type 2 diabetes mellitus without complications; Z79.4 Long term (current) use of insulin; K57.30 Diverticulosis of large intestine without perforation or abscess without bleeding; I25.10 Atherosclerotic heart disease of native coronary artery without angina pectoris; Z86.010 Personal history of colon polyps; E78.00 Pure hypercholesterolemia, unspecified; I10 Essential (primary) hypertension; Z87.891 Personal history of nicotine dependence; Z79.84 Long term (current) use of oral hypoglycemic drugs; K63.5 Polyp of colon; K62.3 Rectal prolapse; Z79.85 Long-term (current) use of injectable non-insulin antidiabetic drugs; Z79.01 Long term (current) use of anticoagulants; Z86.73 Personal history of transient ischemic attack (TIA), and cerebral infarction without residual deficits; Z79.899 Other long term (current) drug therapy; Z98.49 Cataract extraction status, unspecified eye; D17.79 Benign lipomatous neoplasm of other sites
CPT/HCPCS: 45385; 82962; 88305; J7120; J2405

== ENCOUNTER → 2023-12-14 | Outpatient (CLI) | payer MEDICARE, SELFPAY ==
[2023-12-14 10:01] LABS: Absolute Lymphocyte Count 1.39 X10^3/uL (0.83-4.51); Absolute Neutrophil Count 5.5 X10^3/uL (2.0-7.7); Basophil# 0.05 X10^3/uL; Basophil% 0.7 % (0-1); Eosinophil# 0.13 X10^3/uL; Eosinophils% 1.7 % (0-5); Hematocrit 34.4 % (40-54); Lymphocyte # 1.39 X10^3/ul (0.83-4.51); Lymphocyte % 18.4 % (19-41); Mean Corp Hgb Conc 34.9 g/dL (32-36); Mean Corpuscular Hgb 34.9 pg (27.0-32.0); Mean Platelet Vol. 10.3 fl (6.2-12.0); Monocyte# 0.43 X10^3/uL; Monocyte% 5.7 % (0-10); NRBC Flagged by Analyzer 0 % (0-5); Neutrophil # 5.51 X10^3/uL (2.7-7.7); Neutrophil % 73.1 % (47-70); Platelet Count 284 K/mm3 (150-450); RBC Distribution Width CV 13.1 % (11.6-14.6); RBC Distribution Width SD 47.2 fl (35.1-43.9); Red Blood Count 3.44 M/mm3 (4.6-6.2); White Blood Count 7.5 K/mm3 (4.4-11.0)
[2023-12-14 11:49] LABS: ALB/GLOB Ratio 0.9 RATIO (0.9-2.4); AST(SGOT) 15 U/L (15-37); Alanine Aminotransfer ALT/SGPT 25 U/L (16-61); Albumin, Serum 3.4 g/dL (3.2-5.0); Alkaline Phosphatase 75 U/L (45-117); Anion Gap 6 (5-15); BUN 20 mg/dL (7-18); BUN/Creat Ratio 20.1 RATIO (10-20); Calcium,Total 8.9 mg/dL (8.5-10.1); Chloride 103 mmol/L (98-107); EST Glomerular Filtration Rate 79 mL/min (>60); Est Glom Filt Rate - Afr Amer 96 mL/min (>60); Globulin 3.7 g/dL (2.2-4.2); Glucose 225 mg/dL (74-106); Protein, Total 7.1 g/dL (6.4-8.2); Sodium Level 135 mmol/L (136-145)
== END | disposition home or self-care (01) ==
LOC: LAB 09:28
PROVIDERS: PCP Internal Medicine; Referring Provider Internal Medicine Rheumatology; Visit Provider Internal Medicine Rheumatology
DX: M05.79 Rheumatoid arthritis with rheumatoid factor of multiple sites without organ or systems involvement (principal); Z79.899 Other long term (current) drug therapy
CPT/HCPCS: 36415; 80053; 85025

== ENCOUNTER → 2024-02-11 | Outpatient (CLI) | payer MEDICARE, SELFPAY ==
[2024-02-11 10:48] LABS: Absolute Lymphocyte Count 1.42 X10^3/uL (0.83-4.51); Absolute Neutrophil Count 4.1 X10^3/uL (2.0-7.7); Basophil# 0.04 X10^3/uL; Basophil% 0.6 % (0-1); Eosinophil# 0.19 X10^3/uL; Eosinophils% 2.9 % (0-5); Hematocrit 37.2 % (40-54); Lymphocyte # 1.42 X10^3/ul (0.83-4.51); Mean Corp Hgb Conc 34.9 g/dL (32-36); Mean Corpuscular Hgb 35.1 pg (27.0-32.0); Mean Corpuscular Volume 100.5 fL (80-94); Mean Platelet Vol. 9.4 fl (6.2-12.0); Monocyte# 0.73 X10^3/uL; Monocyte% 11.3 % (0-10); NRBC Flagged by Analyzer 0 % (0-5); Neutrophil # 4.05 X10^3/uL (2.7-7.7); Neutrophil % 62.9 % (47-70); Platelet Count 253 K/mm3 (150-450); RBC Distribution Width CV 13.5 % (11.6-14.6); RBC Distribution Width SD 48.8 fl (35.1-43.9); White Blood Count 6.5 K/mm3 (4.4-11.0)
[2024-02-11 11:12] LABS: AST(SGOT) 14 U/L (15-37); Alanine Aminotransfer ALT/SGPT 24 U/L (16-61); Alkaline Phosphatase 90 U/L (45-117); Anion Gap 6 (5-15); BUN 12 mg/dL (7-18); BUN/Creat Ratio 13.1 RATIO (10-20); Bilirubin, Direct 0.31 mg/dL (0.00-0.30); Calcium,Total 9.8 mg/dL (8.5-10.1); Chloride 100 mmol/L (98-107); Cholesterol 86 mg/dL (200); Creatinine, Serum 0.92 mg/dL (0.70-1.30); EST Glomerular Filtration Rate 87 mL/min (>60); Est Glom Filt Rate - Afr Amer 105 mL/min (>60); Globulin 4.1 g/dL (2.2-4.2); Glucose 124 mg/dL (74-106); High Density Lipoprotein 39 mg/dL; Potassium 4.7 mmol/L (3.5-5.1); Protein, Total 8.1 g/dL (6.4-8.2); Sodium Level 133 mmol/L (136-145); Triglycerides 118 mg/dL; Very Low Density Lipoprotein 24 mg/dL (5-40)
== END | disposition home or self-care (01) ==
PROVIDERS: Nurse Practitioner Family; PCP Internal Medicine; Referring Provider Internal Medicine Rheumatology; Visit Provider Internal Medicine Rheumatology
DX: M05.70 Rheumatoid arthritis with rheumatoid factor of unspecified site without organ or systems involvement (principal); Z79.899 Other long term (current) drug therapy; M19.041 Primary osteoarthritis, right hand
CPT/HCPCS: 80053; 80061; 82248; 85025

== ENCOUNTER → 2024-05-05 | Outpatient (CLI) | payer MEDICARE, SELFPAY ==
[2024-05-05 08:46] LABS: Absolute Lymphocyte Count 1.86 X10^3/uL (0.83-4.51); Absolute Neutrophil Count 4.8 X10^3/uL (2.0-7.7); Basophil# 0.05 X10^3/uL; Basophil% 0.7 % (0-1); Eosinophil# 0.15 X10^3/uL; Hematocrit 39.5 % (40-54); Lymphocyte # 1.86 X10^3/ul (0.83-4.51); Lymphocyte % 24.3 % (19-41); Mean Corp Hgb Conc 35.4 g/dL (32-36); Mean Corpuscular Hgb 35.2 pg (27.0-32.0); Mean Corpuscular Volume 99.2 fL (80-94); Mean Platelet Vol. 9.9 fl (6.2-12.0); Monocyte# 0.78 X10^3/uL; Monocyte% 10.2 % (0-10); NRBC Flagged by Analyzer 0 % (0-5); Neutrophil # 4.79 X10^3/uL (2.7-7.7); Neutrophil % 62.4 % (47-70); Platelet Count 219 K/mm3 (150-450); RBC Distribution Width CV 14.1 % (11.6-14.6); RBC Distribution Width SD 50.5 fl (35.1-43.9); Red Blood Count 3.98 M/mm3 (4.6-6.2); White Blood Count 7.7 K/mm3 (4.4-11.0)
[2024-05-05 09:15] LABS: AST(SGOT) 16 U/L (15-37); Alanine Aminotransfer ALT/SGPT 26 U/L (16-61); Alkaline Phosphatase 82 U/L (45-117); Anion Gap 6 (5-15); BUN 9 mg/dL (7-18); BUN/Creat Ratio 8.9 RATIO (10-20); Calcium,Total 9.9 mg/dL (8.5-10.1); Chloride 100 mmol/L (98-107); Creatinine, Serum 1.01 mg/dL (0.70-1.30); EST Glomerular Filtration Rate 78 mL/min (>60); Est Glom Filt Rate - Afr Amer 94 mL/min (>60); Glucose 168 mg/dL (74-106); Potassium 4.4 mmol/L (3.5-5.1); Sodium Level 134 mmol/L (136-145)
== END | disposition home or self-care (01) ==
LOC: LAB 08:30
PROVIDERS: PCP Internal Medicine; Visit Provider Internal Medicine Rheumatology
DX: M05.70 Rheumatoid arthritis with rheumatoid factor of unspecified site without organ or systems involvement (principal); Z79.899 Other long term (current) drug therapy; M19.041 Primary osteoarthritis, right hand
CPT/HCPCS: 36415; 80053; 85025

== ENCOUNTER → 2024-05-30 | Outpatient (CLI) | payer MEDICARE, SELFPAY ==
[2024-05-30 09:20] LABS: ALB/GLOB Ratio 0.9 RATIO (0.9-2.4); AST(SGOT) 16 U/L (15-37); Alanine Aminotransfer ALT/SGPT 22 U/L (16-61); Albumin, Serum 3.5 g/dL (3.2-5.0); Alkaline Phosphatase 78 U/L (45-117); Anion Gap 5 (5-15); BUN 12 mg/dL (7-18); BUN/Creat Ratio 14.4 RATIO (10-20); Calcium,Total 9.3 mg/dL (8.5-10.1); Chloride 104 mmol/L (98-107); Creatinine, Serum 0.83 mg/dL (0.70-1.30); EST Glomerular Filtration Rate 98 mL/min (>60); Est Glom Filt Rate - Afr Amer 118 mL/min (>60); Globulin 3.7 g/dL (2.2-4.2); Glucose 174 mg/dL (74-106); Potassium 4.4 mmol/L (3.5-5.1); Protein, Total 7.2 g/dL (6.4-8.2); Sodium Level 135 mmol/L (136-145)
== END | disposition home or self-care (01) ==
LOC: LAB 07:15
PROVIDERS: PCP Internal Medicine; Referring Provider Nurse Practitioner Family; Visit Provider Nurse Practitioner Family
DX: E87.1 Hypo-osmolality and hyponatremia (principal)
CPT/HCPCS: 36415; 80053

== ENCOUNTER → 2024-07-21 | Outpatient (CLI) | payer MEDICARE, SELFPAY ==
[2024-07-21 10:23] LABS: Anion Gap 11 (5-15); BUN 11 mg/dL (4-19); BUN/Creat Ratio 12.9 RATIO (10-20); Calcium,Total 10.1 mg/dL (7.6-11.0); Carbon Dioxide 26.2 mmol/L (21.0-32.0); Chloride 97 mmol/L (98-108); Creatinine, Serum 0.89 mg/dL (0.70-1.20); EST Glomerular Filtration Rate 94 (>60); Glucose 202 mg/dL (70-99); Sodium Level 134 mmol/L (133-145)
== END | disposition home or self-care (01) ==
LOC: LAB 09:12
PROVIDERS: PCP Internal Medicine; Referring Provider Internal Medicine Cardiovascular Disease; Visit Provider Internal Medicine Cardiovascular Disease
DX: I10 Essential (primary) hypertension (principal)
CPT/HCPCS: 36415; 80048

== ENCOUNTER → 2024-07-27 | Outpatient (CLI) | payer MEDICARE, SELFPAY ==
[2024-07-27 09:52] LABS: Absolute Lymphocyte Count 1.78 X10^3/uL (0.83-4.51); Absolute Neutrophil Count 6.4 X10^3/uL (2.0-7.7); Basophil# 0.05 X10^3/uL; Basophil% 0.6 % (0-1); Eosinophils% 2.2 % (0-5); Hemoglobin 14.2 g/dL (13.0-16.5); Lymphocyte # 1.78 X10^3/ul (0.83-4.51); Mean Corp Hgb Conc 36.4 g/dL (32-36); Mean Corpuscular Hgb 35.6 pg (27.0-32.0); Mean Corpuscular Volume 97.7 fL (80-94); Mean Platelet Vol. 10.3 fl (6.2-12.0); Monocyte# 0.48 X10^3/uL; Monocyte% 5.4 % (0-10); NRBC Flagged by Analyzer 0 % (0-5); Neutrophil # 6.37 X10^3/uL (2.7-7.7); Neutrophil % 71.5 % (47-70); Platelet Count 260 K/mm3 (150-450); RBC Distribution Width CV 13.2 % (11.6-14.6); Red Blood Count 3.99 M/mm3 (4.6-6.2); White Blood Count 8.9 K/mm3 (4.4-11.0)
[2024-07-27 10:48] LABS: ALB/GLOB Ratio 1.3 RATIO (0.9-2.4); AST(SGOT) 20 U/L (<=37); Alanine Aminotransfer ALT/SGPT 20 U/L (<=46); Albumin, Serum 4.2 g/dL (3.4-4.8); Alkaline Phosphatase 86 U/L (40-129); Anion Gap 10 (5-15); BUN 12 mg/dL (4-19); BUN/Creat Ratio 12.3 RATIO (10-20); Calcium,Total 9.8 mg/dL (7.6-11.0); Chloride 96 mmol/L (98-108); Creatinine, Serum 0.97 mg/dL (0.70-1.20); EST Glomerular Filtration Rate 85 (>60); Globulin 3.2 g/dL (2.2-4.2); Glucose 182 mg/dL (70-99); Protein, Total 7.4 g/dL (5.9-8.4); Sodium Level 135 mmol/L (133-145); Total Bilirubin 0.97 mg/dL (0.00-1.30)
== END | disposition home or self-care (01) ==
LOC: LAB 09:11
PROVIDERS: PCP Internal Medicine; Referring Provider Internal Medicine Rheumatology; Visit Provider Internal Medicine Rheumatology
DX: M05.70 Rheumatoid arthritis with rheumatoid factor of unspecified site without organ or systems involvement (principal); Z79.899 Other long term (current) drug therapy; K76.0 Fatty (change of) liver, not elsewhere classified
CPT/HCPCS: 36415; 80053; 85025

== ENCOUNTER → 2024-08-17 | Outpatient (CLI) | payer MEDICARE, SELFPAY ==
--- NOTE | 2024-08-17 17:05 | STRESSREP_ITS ---
Stress Test Report Date: 08/18/2023 Procedure: Pharmacologic stress nuclear imaging study Indications: Coronary artery disease Consent: Per the patient Procedure: The patient underwent pharmacologic (Regadenoson 0.4mg ) evaluation with a peak heart rate of 107 beats per minute (70%predicted maximal heart rate) and a peak blood pressure of 138/78 mmHg. The baseline ECG demonstrated sinus rhythm. The peak pharmacologic ECG no ischemic changes. There were no cardiac dysrhythmias pretest, during pharmacologic infusion, or recovery. There was no complaint of chest discomfort during pharmacologic infusion or recovery. The patient was injected with 14.2 millicuries of technetium 99m Cardiolite and subsequently rest SPECT Cardiolite nuclear imaging was obtained in the horizontal long, vertical long, and short axis views. The patient underwent pharmacologic (Regadenoson) evaluation. The patient was injected with 44.3 millicuries of technetium 99m Cardiolite and subsequently stress SPECT Cardiolite nuclear imaging was obtained in the horizontal long, vertical long, and short axis views. A gated Cardiolite study at peak stress was obtained. The examination was stopped secondary to completion of protocol. Rest and stress SPECT Cardiolite nuclear imaging status post realignment, normalization, and attenuation correction demonstrate no fixed or reversible perfusion defects. No gated images available. Impression: 1. Pharmacologic (Regadenoson) evaluation 2. Peak pharmacologic ECG with no ischemic changes. 3. There were no cardiac dysrhythmias pretest, during pharmacologic infusion, or recovery. 5. Rest and stress SPECT Cardiolite nuclear imaging demonstrate relative uniform tracer uptake and myocardial perfusion appearing within normal limits. 6. No gated images available. This note was generated with [employer] software. It may contain incorrect words, spelling, and punctuation that were not noted in checking the note before signing.
== END | disposition home or self-care (01) ==
LOC: CVS 06:05
PROVIDERS: PCP Internal Medicine; Referring Provider Internal Medicine Cardiovascular Disease; Visit Provider Internal Medicine Cardiovascular Disease
DX: I25.10 Atherosclerotic heart disease of native coronary artery without angina pectoris (principal)
CPT/HCPCS: 78452; 93017; A9500; A4216; J2785

== ENCOUNTER → 2024-08-30 | Outpatient (CLI) | payer MEDICARE, SELFPAY ==
--- NOTE | 2024-08-30 13:37 | ECHOD_ITS ---
Reason For Study Reason For Study: CAD/ASHD Procedure This was a 2D Doppler, Color Flow transthoracic echocardiogram. Exam performed in department. Left Ventricle Normal LV size. Mild concentric left ventricular hypertrophy. Estimated LVEF 65%. Global longitudinal strain -15.8% which is borderline abnormal. Stage I diastolic dysfunction. Right Ventricle Normal right ventricle. Atria The left atrium is moderately enlarged. Normal right atrium. Mitral Valve Moderate mitral valve annular calcification. Mild mitral valve regurgitation. Tricuspid Valve Mild tricuspid valve insufficiency. Normal pulmonary artery pressure. Aortic Valve Trisinus/trileaflet aortic valve. Moderately calcified noncoronary cusp of the aortic valve. Moderate aortic valve regurgitation. Pulmonic Valve The pulmonic valve is not well visualized. Great Vessels Normal sized aortic root. Pericardium/Pleural No pericardial effusion. MMode/2D Measurements & Calculations LVIDd: 4.5 cm IVSd: 1.3 cm LVOT diam: 2.3 cm LVIDs: 3.1 cm LVPWd: 1.2 cm LVOT area: 4.1 cm2 RVDd: 3.2 cm FS: 30.1 % Ao root diam: 3.1 cm LAV(MOD-bp): 53.8 ml LVAd ap4: 19.9 cm2 LAV(MOD-bp) Indexed: 26.5 ml/m2 LVLd ap4: 6.5 cm LAV(MOD-sp2): 52.7 ml EDV(MOD-sp4): 51.3 ml LAV(MOD-sp4): 50.0 ml EDV(sp4-el): 51.5 ml LVAs ap4: 11.5 cm2 LVLs ap4: 5.5 cm ESV(MOD-sp4): 21.3 ml ESV(sp4-el): 20.4 ml EF(MOD-sp4): 58.4 % EF(sp4-el): 60.4 % SV(MOD-sp4): 29.9 ml SV(sp4-el): 31.1 ml LA A4 area: 19.7 cm2 SI(MOD-sp4): 14.7 ml/m2 LA dimension(2D): 4.3 cm RA A4 area: 13.3 cm2 TAPSE: 1.9 cm Time Measurements MV dec time: 0.23 sec Doppler Measurements & Calculations MV E max syed: 86.5 cm/sec Lat Peak E' Syed: 6.4 cm/sec Med Peak E' Syed: 5.9 cm/sec MV A max syed: 95.3 cm/sec E/E' lat: 13.5 E/E' med: 14.8 MV E/A: 0.91 MV V2 max: 98.7 cm/sec Ao V2 max: 153.7 cm/sec MV max P.9 mmHg MV dec slope: 373.6 cm/sec2 Ao max P.5 mmHg MV V2 mean: 68.5 cm/sec Ao V2 mean: 105.1 cm/sec MV mean P.0 mmHg Ao mean P.1 mmHg MV V2 VTI: 28.7 cm Ao V2 VTI: 32.6 cm AV (velocity ratio): 0.66 MVA(VTI): 3.1 cm2 GLENROY(I,D): 2.7 cm2 GLENROY(V,D): 2.7 cm2 AI max syed: 482.7 cm/sec LV V1 max: 101.5 cm/sec SV(LVOT): 89.1 ml AI max P.2 mmHg LV V1 max P.1 mmHg LV V1 mean P.2 mmHg AI dec slope: 343.0 cm/sec2 LV V1 mean: 69.1 cm/sec AI P1/2t: 412.2 msec LV V1 VTI: 21.7 cm PA V2 max: 76.4 cm/sec TR max syed: 242.5 cm/sec TR max P.5 mmHg ECHO/Echo Complete Interpretation Summary Mild concentric left ventricular hypertrophy. Estimated LVEF 65%. Global longitudinal strain -15.8% which is borderline abnor mal. Stage I diastolic dysfunction. The left atrium is moderately enlarged. Moderate mitral valve annular calcification. Mild mitral valve regurgitation. Mild tricuspid valve insufficiency. Moderately calcified noncoronary cusp of the aortic valve. Moderate aortic valv e regurgitation. Ordering Physician: Lissa Roman Referring Physician: Ct Murphy Performed By: Maricarmen Mcmillan, SEE, RVT
== END | disposition home or self-care (01) ==
LOC: CVS 13:37
PROVIDERS: PCP Internal Medicine; Referring Provider Internal Medicine Cardiovascular Disease; Visit Provider Internal Medicine Cardiovascular Disease
DX: I25.10 Atherosclerotic heart disease of native coronary artery without angina pectoris (principal)
CPT/HCPCS: 93306

== ENCOUNTER → 2024-10-24 | Outpatient (CLI) | payer MEDICARE, SELFPAY ==
[2024-10-24 10:42] LABS: Absolute Lymphocyte Count 1.94 X10^3/uL (0.83-4.51); Absolute Neutrophil Count 5.9 X10^3/uL (2.0-7.7); Basophil# 0.03 X10^3/uL; Basophil% 0.4 % (0-1); Eosinophil# 0.09 X10^3/uL; Eosinophils% 1.1 % (0-5); Hemoglobin 13.8 g/dL (13.0-16.5); Lymphocyte # 1.94 X10^3/ul (0.83-4.51); Lymphocyte % 23.2 % (19-41); Mean Corp Hgb Conc 36.3 g/dL (32-36); Mean Corpuscular Hgb 34.3 pg (27.0-32.0); Mean Corpuscular Volume 94.5 fL (80-94); Mean Platelet Vol. 10.1 fl (6.2-12.0); Monocyte# 0.43 X10^3/uL; Monocyte% 5.1 % (0-10); NRBC Flagged by Analyzer 0 % (0-5); Neutrophil # 5.87 X10^3/uL (2.7-7.7); Platelet Count 340 K/mm3 (150-450); RBC Distribution Width CV 13.5 % (11.6-14.6); RBC Distribution Width SD 46.5 fl (35.1-43.9); Red Blood Count 4.02 M/mm3 (4.6-6.2); White Blood Count 8.4 K/mm3 (4.4-11.0)
[2024-10-24 12:13] LABS: ALB/GLOB Ratio 1.2 RATIO (0.9-2.4); AST(SGOT) 29 U/L (<=37); Alanine Aminotransfer ALT/SGPT 51 U/L (<=46); Albumin, Serum 4.1 g/dL (3.4-4.8); Alkaline Phosphatase 87 U/L (40-129); Anion Gap 12 (5-15); BUN 17 mg/dL (4-19); Bilirubin, Direct 0.34 mg/dL (0.00-0.30); Carbon Dioxide 27.7 mmol/L (21.0-32.0); Chloride 95 mmol/L (98-108); Creatinine, Serum 1.03 mg/dL (0.70-1.20); EST Glomerular Filtration Rate 79 (>60); Globulin 3.5 g/dL (2.2-4.2); Glucose 207 mg/dL (70-99); Protein, Total 7.6 g/dL (5.9-8.4); Sodium Level 134 mmol/L (133-145); Total Bilirubin 1.08 mg/dL (0.00-1.30)
[2024-10-24 12:41] LABS: Cholesterol 182 mg/dL (<=200); High Density Lipoprotein 37 mg/dL; Low Density Lipoprotein Calc. 102 mg/dL; Triglycerides 212 mg/dL; Very Low Density Lipoprotein 42 mg/dL (5-40); cholesterol:hdl ratio screen 4.89
== END | disposition home or self-care (01) ==
LOC: LAB 09:44
PROVIDERS: Nurse Practitioner Gerontology; PCP Internal Medicine; Referring Provider Internal Medicine Rheumatology; Visit Provider Internal Medicine Rheumatology
DX: M05.70 Rheumatoid arthritis with rheumatoid factor of unspecified site without organ or systems involvement (principal); Z79.899 Other long term (current) drug therapy; K76.0 Fatty (change of) liver, not elsewhere classified
CPT/HCPCS: 36415; 80053; 80061; 82248; 85025

== ENCOUNTER → 2024-12-13 | Outpatient (CLI) | payer MEDICARE, SELFPAY ==
[2024-12-13 11:02] LABS: Hematocrit 35.7 % (40-54); Hemoglobin 12.6 g/dL (13.0-16.5); Immature Granulocytes Count 0.120 X10^3/uL (0.0-0.0); Mean Corp Hgb Conc 35.3 g/dL (32-36); Mean Corpuscular Volume 96.0 fL (80-94); Mean Platelet Vol. 10.3 fl (6.2-12.0); NRBC Flagged by Analyzer 0 % (0-5); Platelet Count 291 K/mm3 (150-450); RBC Distribution Width CV 14.3 % (11.6-14.6); RBC Distribution Width SD 49.1 fl (35.1-43.9); Red Blood Count 3.72 M/mm3 (4.6-6.2); White Blood Count 20.5 K/mm3 (4.4-11.0)
[2024-12-13 11:35] LABS: AST(SGOT) 13 U/L (<=37); Alanine Aminotransfer ALT/SGPT 15 U/L (<=46); Albumin, Serum 4.1 g/dL (3.4-4.8); Alkaline Phosphatase 81 U/L (40-129); Anion Gap 12 (5-15); BUN 13 mg/dL (4-19); BUN/Creat Ratio 13.0 RATIO (10-20); Bilirubin, Direct 0.68 mg/dL (0.00-0.30); Calcium,Total 10.2 mg/dL (7.6-11.0); Carbon Dioxide 25.4 mmol/L (21.0-32.0); Chloride 95 mmol/L (98-108); Cholesterol 122 mg/dL (<=200); Globulin 3.4 g/dL (2.2-4.2); Glucose 160 mg/dL (70-99); Low Density Lipoprotein Calc. 52 mg/dL; Potassium 4.0 mmol/L (3.3-5.1); Triglycerides 55 mg/dL; Very Low Density Lipoprotein 11 mg/dL (5-40); cholesterol:hdl ratio screen 2.07
== END | disposition home or self-care (01) ==
LOC: LAB 09:56
PROVIDERS: PCP Internal Medicine; Referring Provider Nurse Practitioner Family; Visit Provider Nurse Practitioner Family
DX: M05.70 Rheumatoid arthritis with rheumatoid factor of unspecified site without organ or systems involvement (principal); Z79.899 Other long term (current) drug therapy; K76.0 Fatty (change of) liver, not elsewhere classified
CPT/HCPCS: 36415; 80053; 80061; 82248; 85025

== ENCOUNTER → 2025-02-08 | Outpatient (CLI) | payer MEDICARE, SELFPAY ==
[2025-02-08 08:57] LABS: Hematocrit 34.0 % (40-54); Hemoglobin 11.7 g/dL (13.0-16.5); Immature Granulocytes Count 0.060 X10^3/uL (0.0-0.0); Mean Corp Hgb Conc 34.4 g/dL (32-36); Mean Corpuscular Volume 94.2 fL (80-94); Mean Platelet Vol. 9.9 fl (6.2-12.0); NRBC Flagged by Analyzer 0 % (0-5); Platelet Count 328 K/mm3 (150-450); RBC Distribution Width CV 15.9 % (11.6-14.6); RBC Distribution Width SD 52.9 fl (35.1-43.9); Red Blood Count 3.61 M/mm3 (4.6-6.2); White Blood Count 9.0 K/mm3 (4.4-11.0)
[2025-02-08 09:28] LABS: Albumin, Serum 4.2 g/dL (3.4-4.8); BUN 14 mg/dL (4-19); BUN/Creat Ratio 14.3 RATIO (10-20); Globulin 3.7 g/dL (2.2-4.2); Glucose 131 mg/dL (70-99)
[2025-02-08 09:29] LABS: AST(SGOT) 18 U/L (<=37); Alanine Aminotransfer ALT/SGPT 17 U/L (<=46); Alkaline Phosphatase 115 U/L (40-129); Anion Gap 13 (5-15); Calcium,Total 9.9 mg/dL (7.6-11.0); Carbon Dioxide 24.0 mmol/L (21.0-32.0); Chloride 99 mmol/L (98-108); Potassium 4.5 mmol/L (3.3-5.1)
== END | disposition home or self-care (01) ==
LOC: LAB 08:34
PROVIDERS: PCP Internal Medicine; Referring Provider Internal Medicine Rheumatology; Visit Provider Internal Medicine Rheumatology
DX: M05.70 Rheumatoid arthritis with rheumatoid factor of unspecified site without organ or systems involvement (principal); M25.511 Pain in right shoulder; M19.041 Primary osteoarthritis, right hand
CPT/HCPCS: 36415; 80053; 85025

== ENCOUNTER → 2025-04-25 | Outpatient (CLI) | payer MEDICARE, SELFPAY ==
[2025-04-25 09:35] LABS: Hematocrit 32.0 % (40-54); Hemoglobin 10.9 g/dL (13.0-16.5); Immature Granulocytes Count 0.050 X10^3/uL (0.0-0.0); Mean Corp Hgb Conc 34.1 g/dL (32-36); Mean Corpuscular Volume 93.0 fL (80-94); Mean Platelet Vol. 10.4 fl (6.2-12.0); NRBC Flagged by Analyzer 0 % (0-5); Platelet Count 282 K/mm3 (150-450); RBC Distribution Width CV 16.0 % (11.6-14.6); RBC Distribution Width SD 53.5 fl (35.1-43.9); Red Blood Count 3.44 M/mm3 (4.6-6.2); White Blood Count 7.6 K/mm3 (4.4-11.0)
[2025-04-25 10:27] LABS: PSA,Total- Diagnostic 0.52 ng/mL (0.00-4.00)
[2025-04-25 10:38] LABS: AST(SGOT) 16 U/L (<=37); Alanine Aminotransfer ALT/SGPT 17 U/L (<=46); Albumin, Serum 3.9 g/dL (3.4-4.8); Alkaline Phosphatase 116 U/L (40-129); Anion Gap 10 (7-18); BUN 16 mg/dL (4-19); BUN/Creat Ratio 17.5 RATIO (10-20); Calcium,Total 9.8 mg/dL (7.6-11.0); Carbon Dioxide 24.5 mmol/L (20.0-29.0); Chloride 95 mmol/L (96-106); Globulin 3.4 g/dL (2.2-4.2); Glucose 167 mg/dL (70-99); Potassium 4.5 mmol/L (3.5-5.1)
[2025-04-25 11:10] LABS: Creatinine, Urine (random) 47.60 mg/dL (39.00-259.00); Microalbumin,Random Urine < 12.0 mg/L (<20 mg/L)
== END | disposition home or self-care (01) ==
LOC: LAB 08:31
PROVIDERS: PCP Internal Medicine; Referring Provider Internal Medicine Rheumatology; Visit Provider Internal Medicine Rheumatology
DX: M05.70 Rheumatoid arthritis with rheumatoid factor of unspecified site without organ or systems involvement (principal); E11.8 Type 2 diabetes mellitus with unspecified complications; Z79.899 Other long term (current) drug therapy; R35.1 Nocturia
CPT/HCPCS: 80053; 82043; 82570; 84153; 85025